=== PATIENT | male | born 1955 | race Caucasian/White ===

== ENCOUNTER 2017-11-19 12:30 | Outpatient (RCR) | payer OTHER, SELFPAY ==
--- NOTE | 2017-09-18 11:03 | HP.PTEVAL ---
Patient's Visit Information ESTEPHANIA HERNADNEZ is a 62 year old M referred to Physical Therapy by Miah Fernandez with a diagnosis of Neck pain. Date of Evaluation: 09/18/17 Physical Therapist: Александр Fernandes PT, - Visit Plan Frequency: 2-3x /Week Duration: 4-6 Weeks Plan: Postural Edu, C/S isometrics, scap stab ex's, Ube, and HEP - Subjective Subjective: Pt reports he has had neck pain for the past 35 years. Pt reports he was knocked out while playing walleyball, and notes that he has had pain ever since. Pt reports his neck cracks with all ROM, and pt notes he has had several appts to help with his pain. Pt notes he has been working out at [employer] for the past several months, but that is helping with his neck pain. Pt reports his L UE will occasionally go numb in his hand if he is talks on the phone for very long. 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 Occasional sleep diff secondary to pain. - Pain neck pain Pain Intensity (Out of 10): 3 Pain Intensity Range: 6 - Objective Posture: Pt sits with mild increase is thorasic kyphosis and decreased C/S lordosis. Neuro: B UE sensation is WNL to light touch. B bicepital reflex= 2/3. MMT: B UE 5/5 throughout. ROM: Pt is moderately limited with L rot, R sb, and retraction. repeated movements: RPIS 3x10 had NE. RRIS had NE - Goals Goal 1:: Pt will verbally and physically display proper posture to aid with decreasing pain Goal Time Frame: 4-6 Weeks Goal 2:: Decrease C/S pain x 50% to aid with sleep Goal Time Frame: 4-6 Weeks Goal 3:: Restore full C/S ROM to aid with proper posture Goal Time Frame: 4-6 Weeks Goal 4:: I with HEP Goal Time Frame: 4-6 Weeks - Rehabilitation Potential Physical Therapy Diagnosis: Pt has neck pain, limited C/S ;ROM, and poor posture secondary to degenerative changes in the C/S Rehabilitation Potential: Good - Anticipated Interventions Patient/Client Instruction: Educate patient on: Condition, Plan of Care For the Purpose of:: To improve self management Therapeutic Exercise to Include: Strength training, Body mechanics, Postural training, Scapular Strength/Stabilization For the Purpose of:: To decrease pain, To increase ROM, To improve muscle performance and motor function Thank you for the opportunity to evaluate your patient. For Medicare and Medicare HMO plans, please review the plan of care and approve it. It will need to be FAXED BACK to us at [phone] for Medicare purposes. Please let me know if there are questions or concerns regarding this plan of care. Physician Signature: Date:
--- NOTE | 2018-01-15 13:54 | HP.PT.NRP ---
HP - Discharge Summary (1) - Patient Information ESTEPHANIA HERNANDEZ was seen in my office for initial evaluation on 09/18/17. The following Plan of Care was established for this patient: Initial Frequency: 2-3x /Week Initial Duration: 4-6 Weeks - Anticipated Interventions Patient/Client Instruction: Educate patient on: Condition, Plan of Care For the Purpose of:: To improve self management Therapeutic Exercise to Include: Strength training, Body mechanics, Postural training, Scapular Strength/Stabilization For the Purpose of:: To decrease pain, To increase ROM, To improve muscle performance and motor function This patient was last seen in our office . Pertinent comments regarding their Physical therapy will appear below: Pt was last treated for his cervical pain on the date of 11/19/17. Pt had to stop PT secondary to needing tooth surgery. We planned on continuing after that time, but pt has not returned. Pt is therefore discontinued at this time. At this point I will be discontinuing this patient from physical therapy. I would be happy to see this patient again in the future if found appropriate by the physician. Thank you! Александр Fernandes, PT,
== END 2017-11-19 19:00 | disposition home or self-care (01) ==
LOC: PT 12:30
PROVIDERS: Family Provider Family Medicine; PCP Family Medicine; Visit Provider Family Medicine
DX: M54.2 Cervicalgia (principal)
CPT/HCPCS: 97110; 97140; 97161; 97530

== ENCOUNTER 2018-03-01 19:33 | Emergency (ER) | payer OTHER, SELFPAY ==
[2018-03-01 19:34] VITALS: BP 145/94; PULSE 67; RESP 15; TEMP 36.9; O2SAT 97; BMI 24.3
--- NOTE | 2018-03-01 21:05 | RAD_ITS ---
STUDY: X-RAY CHEST REASON FOR EXAM: Male, 62 years old. Cough and shortness of breath. TECHNIQUE: 2 views COMPARISON: Prior chest radiograph of July 17, 2017 FINDINGS: The lungs are clear and expanded. Small eventration of the posterior medial left diaphragm. 17 x 7 mm new nodular opacity in the axillary portion of the left upper lobe since the prior exam July 17, 2017. Normal size heart. Normal mediastinum and michelle. Normal visualized pulmonary arteries. Normal visualized aortic arch and descending thoracic aorta. Mild degenerative changes of the thoracic spine. Normal visualized ribs, clavicles, and shoulders. There is no demonstrated abnormality of the visualized soft tissue structures of the upper abdomen. RAD/Chest PA and Lateral IMPRESSION: No acute cardiopulmonary findings or changes. Negative for new consolidation, focal atelectasis, cardiomegaly or pleural effusion. New 17 x 7 mm nodular opacity in the axillary portion of the left upper lobe since the prior exam of July 17, 2017. CT recommended. Electronically Signed: Perla Hunter MD at 21:39 EDT , Service support ,
--- NOTE | 2018-03-01 21:49 | CT_ITS ---
STUDY: CT CHEST WITHOUT CONTRAST REASON FOR EXAM: Male, 62 years old. Evaluation of new pulmonary nodule. RADIATION DOSAGE (If Supplied By Facility): CTDIvol = ( 9.80 ) mGy, DLP = ( 391.68 ) mGycm TECHNIQUE: Transaxial imaging was performed without the administration of intravenous contrast material. Multiplanar coronal and sagittal images were reformatted. Individualized dose optimization techniques were used for this CT. COMPARISON: Prior chest radiograph March 01, 2018 and July 17, 2017 FINDINGS: Negative for pulmonary nodule. Minimal micronodular infiltrate in the anterior right lower lobe with associated thickening of the small regional bronchi. Small posterior medial fatty herniation of the left diaphragm. Negative for pleural effusion. Normal heart and pericardium. Coronary calcifications. Normal mediastinum. Normal hilar regions. Normal unenhanced pulmonary arteries. Normal aorta arch and descending thoracic aorta. There are multi-level degenerative changes of the thoracic spine. There is no demonstrated abnormality of the visualized upper abdomen. CT/Chest without Contrast IMPRESSION: There is no pulmonary nodule. Therefore, the density on the chest radiograph was an overlying artifact. Minimal micronodular infiltrate in the anterior segment of the right lower lobe with associated thickening of the small regional bronchi. Small posterior medial fatty herniation of the left diaphragm. Coronary calcifications. No acute pulmonary findings. Negative for infiltrates, consolidation Electronically Signed: Perla Hunter MD at 22:46 EDT , Service support ,
[2018-03-01 21:52] VITALS: BP 178/85; PULSE 96; RESP 14; O2SAT 96
[2018-03-01 22:22] LABS: Absolute Lymphocyte Count 2.73 X10^3/ul (0.83-4.51); Absolute Neutrophil Count 10.1 X10^3/uL (2.0-7.7); Basophil# 0.03 X10^3/uL; Basophil% 0.2 % (0-1); Eosinophils% 0.7 % (0-5); Hemoglobin 14.9 g/dl (13.0-16.5); Lymphocyte # 2.73 X10^3/ul (4.0); Lymphocyte % 19.1 % (19-41); Mean Corp Hgb Conc 33.9 g/gl (32-36); Mean Corpuscular Hgb 30.9 pg (27.0-32.0); Mean Corpuscular Volume 91.3 fL (80-94); Mean Platelet Vol. 10.5 fl (6.2-12.0); Monocyte# 1.28 X10^3/uL; Neutrophil # 10.09 X10^3/uL (2.7-7.7); Neutrophil % 70.6 % (47-70); Platelet Count 228 K/mm3 (150-450); RBC Distribution Width CV 12.8 % (11.6-14.6); RBC Distribution Width SD 42.8 fl (35.1-43.9); Red Blood Count 4.82 M/mm3 (4.6-6.2); White Blood Count 14.3 K/mm3 (4.4-11.0)
[2018-03-01 22:23] LABS: POSITIVE COUNT NO; POSITIVE DIFFERENTIAL NO; POSITIVE MORPHOLOGY NO
[2018-03-01 22:38] LABS: Anion Gap 9 (5-15); BUN 12 mg/dL (7-18); BUN/Creat Ratio 11.2 RATIO (10-20); Calcium,Total 9.1 mg/dL (8.5-10.1); Chloride 105 mmol/L (98-107); Creatinine, Serum 1.07 mg/dL (0.70-1.30); EST Glomerular Filtration Rate 74 mL/min (>60); Est Glom Filt Rate - Afr Amer 90 mL/min (>60); Estimated Creatinine Clearance 66.07 ml/min; Glucose 86 mg/dL (74-106); Potassium 3.8 mmol/L (3.5-5.1); Sodium Level 141 mmol/L (136-145)
[2018-03-01 23:15] VITALS: BP 102/43; PULSE 106; RESP 15; O2SAT 94
--- NOTE | 2018-03-01 23:22 | ED.DCSUM_ITS ---
- ER Visit Summary Date of Service: 03/01/18 Chief Complaint: Cough History of Present Illness: The patient is a 62 M who presents for cough. This is been present for 7 weeks. He initially had a cough productive of sputum although this is improving and it is more dry. He initially saw his primary care physician was diagnosed with bronchitis and advised on supportive treatment. He then went to the urgent care about 11 or 12 days ago due to lack of improvement of symptoms. He was placed on steroids and antibiotic and inhaler but states that he really had no improvement. He has also developed some more upper respiratory symptoms such as congestion and drainage. Physical Examination: Afebrile vitals are unremarkable Moist mucous membranes Heart regular rate and rhythm Lungs are clear I do not appreciate rales rhonchi or wheezing Abdomen soft Alert Test Results: Chest x-ray shows a 17 x 7 millimeter nodular opacity in the left upper lobe. CBC BMP notable for white blood cell count of 14.3. CT of the chest shows no nodule and findings seen on x-ray were thought to be related artifact. There were no acute findings on CT chest. Emergency Department Course and Treatment: Initially just obtained chest x-ray to rule out pneumonia. This showed a possible nodular opacity however when CT of the chest was obtained this was not seen and it was attributed to artifact. He was instructed on supportive care. Given chronic cough for 7 weeks he was advised of the possible need for outpatient workup including possible pulmonology referral if his symptoms do not improve. He was advised to follow- up with his primary care physician discharged home. Treatment Plan: [] Disposition: Discharge Impression: Chronic cough This note was generated with [employer] dictation software. It may contain incorrect words, spelling, and punctuation that were not noted in review of the chart prior to signing ED Disposition - Plan for ED Patient: Chief Complaint: Shortness of Breath Referrals: Miah Fernandez MD [Primary Care Provider] -
--- NOTE | 2018-03-01 23:22 | ED.DEP ---
ED Disposition - Plan for ED Patient: Chief Complaint: Shortness of Breath Instructions: ED Cough Chronic Cause Unkn Referrals: Miah Fernandez MD [Primary Care Provider] -
--- NOTE | 2018-03-01 23:33 | ED.RN ---
IV DC'ED, CATHETER INTACT, SMALL GAUZE DRESSING PLACED. DISCHARGE INSTRUCTIONS GIVEN TO AND REVIEWED WITH PATIENT, PATIENT DENIES QUESTIONS OR CONCERNS AND VOICES UNDERSTANDING OF DISCHARGE INSTRUCTIONS. PT AMBULATES OUT OF ROOM WITHOUT DIFFICULTY.
== END 2018-03-01 23:34 | disposition home or self-care (01) ==
PROVIDERS: Emergency Provider Emergency Medicine; Family Provider Family Medicine; PCP Family Medicine
DX: R05 Cough (principal); R06.00 Dyspnea, unspecified; R09.81 Nasal congestion; J34.89 Other specified disorders of nose and nasal sinuses; I10 Essential (primary) hypertension; Z85.820 Personal history of malignant melanoma of skin; Z86.69 Personal history of other diseases of the nervous system and sense organs; Z79.82 Long term (current) use of aspirin; Z79.899 Other long term (current) drug therapy
CPT/HCPCS: 71046; 71250; 80048; 85025; 99283; A4216

== ENCOUNTER → 2018-07-26 09:36 | Outpatient (CLI) | payer OTHER, SELFPAY ==
[2018-07-26 12:29] LABS: Vitamin D,25 Hydroxy 14.8 ng/mL (29.95-100.01)
[2018-07-26 12:53] LABS: Anion Gap 7 (5-15); BUN 17 mg/dL (7-18); BUN/Creat Ratio 15.5 RATIO (10-20); Chloride 105 mmol/L (98-107); Cholesterol 201 mg/dL (200); EST Glomerular Filtration Rate 72 mL/min (>60); Est Glom Filt Rate - Afr Amer 87 mL/min (>60); Glucose 87 mg/dL (74-106); High Density Lipoprotein 60 mg/dL; PSA,Total - Annual Screen 2.32 ng/mL (0.00-4.00); Potassium 4.1 mmol/L (3.5-5.1); Sodium Level 140 mmol/L (136-145); Thyroid Stim Hormone (TSH) 2.51 uIU/mL (0.358-3.74); Triglycerides 87 mg/dL; Very Low Density Lipoprotein 17 mg/dL (5-40)
== END ==
PROVIDERS: Family Provider Family Medicine; PCP Family Medicine; Referring Provider Family Medicine; Visit Provider Family Medicine
DX: Z00.00 Encounter for general adult medical examination without abnormal findings (principal)
CPT/HCPCS: 36415; 80048; 80061; 82306; 84153; 84443; G0103

== ENCOUNTER → 2018-09-09 09:00 | Outpatient (CLI) | payer OTHER, SELFPAY ==
--- NOTE | 2018-09-09 | BON_PTH ---
PATIENT: ESTEPHANIA HERNANDEZ LOC: [facility] U#:[id number] AGE/SX: 70/M ROOM: RE09/09/[address]: Dr. Chapin Levi DDS : 1955 BED: DIS: SPEC #: [id number] RECD: 09/09/18 14:37 STATUS: ROSETTA SEAN #: [id number] YAZMIN: 09/09/18 00:[address]: Chapin Levi DEPT: SURGICAL PATHOLOGY RECD BY: Adolfo Gupta ENTERED: 09/09/18 14:38 SP TYPE: Bone OTHR DR: Dr. Jose Christianson MD Tissues: Mandible, NOS Procedures: Decalcification bone/plaque Surgery Specimen Level IV HEADER OPERATION: Bone biopsy PRE-OP DIAGNOSIS: Non healing lesion, mandible POST-OP DIAGNOSIS: Lesion removed TISSUE SUBMITTED: Possible odontogenic lesion possible granuloma MICROSCOPIC DIAGNOSIS Mandible lesion, 19th area, biopsy: Consistent with dentigerous (follicular) cyst. AM:sp 09/10/18 COMMENT Case has been reviewed in consultation with Dr. Diaz who concurs with the above diagnosis. IDC:GREGORIO MICROSCOPIC DESCRIPTION The cyst lining consists of non-thickened, non-keratinizing, flattened squamous mucosa of 2-3 layers. Fibrinoid material containing cholesterol-like crystal is also present in the biopsy, adjacent to the benign mucosal tissue. GROSS DESCRIPTION Received is one container labeled with the patient name and designated [facility] area. The specimen consists of two pieces of pino pink mucosal tissue that in aggregate measure 1.5 x 1.5 x 0.5 cm. The specimen is totally submitted in one cassette. / GREGORIO:uri 09/09/18 TC: 5 CPT: 10533
== END ==
PROVIDERS: Family Provider Family Medicine; PCP Family Medicine; Referring Provider Dentist Oral and Maxillofacial Surgery; Visit Provider Dentist Oral and Maxillofacial Surgery
DX: L98.9 Disorder of the skin and subcutaneous tissue, unspecified (principal)
CPT/HCPCS: 88305; 88311

== ENCOUNTER 2018-09-24 21:42 | Emergency (ER) | payer OTHER, SELFPAY ==
[2018-09-24 21:43] VITALS: BP 165/86; PULSE 106; RESP 14; TEMP 36.7; O2SAT 97; BMI 26.6
[2018-09-24 21:50] VITALS: RESP 16
--- NOTE | 2018-09-24 22:15 | US_ITS ---
STUDY: VENOUS DOPPLER ULTRASOUND - LEFT LOWER EXTREMITY REASON FOR EXAM: Male, 63 years old. Left lateral knee pain for 5 hours today. TECHNIQUE: Ultrasound evaluation of the deep vein system to include shen-scale imaging and compression was performed. Shen-scale imaging and Doppler sonographic evaluation, including duplex spectral analysis and qualitative color flow sonography, was performed. COMPARISON: None. FINDINGS: Common Femoral Vein: Normal compression, spontaneity and augmentation. Normal color Doppler. Common Femoral Vein/Greater Saphenous Junction: Normal compression. Femoral Proximal: Normal compression. Femoral Middle: Normal compression, spontaneity and augmentation. Normal color Doppler. Femoral Distal: Normal compression. Popliteal Vein: Normal compression, spontaneity and augmentation. Normal color Doppler. Posterior Tibial Vein: Normal compression. Peroneal Vein: Normal compression. There is no demonstrated deep venous thrombosis. US/Venous Duplex Imag/Limited/Uni IMPRESSION: No sonographic evidence for deep venous thrombosis of the left common femoral, superficial femoral or popliteal veins. Electronically Signed: Gisele Franco MD at 23:07 EST , Service support ,
--- NOTE | 2018-09-24 22:23 | ED.VISSUMM ---
- ER Visit Summary Date of Service: 09/24/18 Chief Complaint: Atraumatic left posterior knee pain History of Present Illness: The patient is a 63 M past medical history of hypertension and prior skin cancer. Patient recently had jaw surgery for benign tumor. States today he noted pain behind his left knee. Worse with movement. Denies any falls or trauma. No swelling. No chest pain or shortness of breath. No prior history of any DVTs or PEs. No knee swelling or redness. No fever. Physical Examination: Well-appearing male. Vital signs are stable and afebrile. H EENT exam unremarkable. Neck nontender. Lungs clear to auscultation bilaterally. Heart regular rhythm no murmur. Abdomen soft nontender. Patient moving all 4 extremities. Neurovascular intact. His left foot DP pulses normal. Dorsi plantar flexion intact. Normal motor strength. Normal sensation. Full range of motion to his left hip, left knee and left ankle. No swelling or tenderness to any of the joints in his left leg. The popliteal fossa is currently nontender and nonswollen. Calf is nontender without edema. Currently clinically there is no signs of a DVT. Neurologic exam is unremarkable. Test Results: Venous study of the left lower extremity reveals no acute abnormality. No DVT. No signs of a Norman's cyst according to the heavy line technician. Emergency Department Course and Treatment: Repeat exam at 2250 patient doing well. He and I discussed differential diagnosis. He will follow-up with his doctor if not improving. Treatment Plan: Motrin for pain. Follow-up with not improving. Disposition: Discharge Impression: Acute left posterior knee muscle skeletal pain This note was generated with [employer] dictation software. It may contain incorrect words, spelling, and punctuation that were not noted in review of the chart prior to signing ED Disposition - Plan for ED Patient: Chief Complaint: Lower Extremity Injury Referrals: Jose Christianson MD [Primary Care Provider] -
--- NOTE | 2018-09-24 22:26 | ED.DCSUM_ITS ---
- ER Visit Summary Date of Service: 09/24/18 Chief Complaint: Atraumatic left posterior knee pain History of Present Illness: The patient is a 63 M past medical history of hypertension and prior skin cancer. Patient recently had jaw surgery for benign tumor. States today he noted pain behind his left knee. Worse with movement. Denies any falls or trauma. No swelling. No chest pain or shortness of breath. No prior history of any DVTs or PEs. No knee swelling or redness. No fever. Physical Examination: Well-appearing male. Vital signs are stable and afebrile. H EENT exam unremarkable. Neck nontender. Lungs clear to auscultation bilaterally. Heart regular rhythm no murmur. Abdomen soft nontender. Patient moving all 4 extremities. Neurovascular intact. His left foot DP pulses normal. Dorsi plantar flexion intact. Normal motor strength. Normal sensation. Full range of motion to his left hip, left knee and left ankle. No swelling or tenderness to any of the joints in his left leg. The popliteal fossa is currently nontender and nonswollen. Calf is nontender without edema. Currently clinically there is no signs of a DVT. Neurologic exam is unremarkable. Test Results: Venous study of the left lower extremity reveals no acute a bnormality. No DVT. No signs of a Norman's cyst according to the domestic technician. Emergency Department Course and Treatment: Repeat exam at 2250 patient doing we ll. He and I discussed differential diagnosis. He will follow-up with his doctor if not improving. Treatment Plan: Motrin for pain. Follow-up with not improving. Disposition: Discharge Impression: Acute left posterior knee muscle skeletal pain This note was generated with [employer] dictation software. It may contain incorrect words, spelling, and punctuation that were not noted in review of the chart prior to signing ED Disposition - Plan for ED Patient: Chief Complaint: Lower Extremity Injury Referrals: Jose Christianson MD [Primary Care Provider] -
--- NOTE | 2018-09-24 22:57 | ED.DEP ---
ED Disposition - Plan for ED Patient: Disposition: Home or Assisted Living Chief Complaint: Lower Extremity Injury Instructions: ED Knee Pain UKO Referrals: Jose Christianson MD [Primary Care Provider] - 10-14 Days if not better Additional Instructions: Motrin for pain and inflammation. Follow-up your primary care physician if not improving. The ultrasound showed no signs of a blood clot. If this is not improving follow-up with your doctor this could be secondary to an internal derangement in your knee.
[2018-09-24 23:03] VITALS: BP 154/93; PULSE 95; RESP 16; O2SAT 98
--- OUTSIDE RECORDS SUMMARY | 2018-11-20 10:37 | XMS RPT_ITS ---
:1955 Author Organization OH[facility] Care Team Providers Name Role Phone LIANA FRANCIS ([place]) Referring Unavailable Jose Christianson Attending Unavailable Jose Christianson Referring Unavailable Jose Christianson Primary Care Unavailable Jose Christianson Primary Care Unavailable Ambrocio Farooq Attending Unavailable Miah Fernandez Attending Unavailable Miah Fernandez Primary Care Unavailable Miah Fernandez Primary Care Unavailable Ed Juan Attending Unavailable Meghan, Jose Attending Unavailable Meghan, Jose Referring Unavailable Meghan, Jose Primary Care Unavailable Chapin Levi Attending Unavailable Gurmeet, Chapin Referring Unavailable Meghan, Jose Primary Care Unavailable Christianson, Jose Primary Care Unavailable Baljit Pfeiffer Attending Unavailable PROBLEMS PROBLEMS DATE TYPE CONDITION / CODE ATTENDING STATUS SOURCE 07/26/2018 Unknown Z00.00 - Jose Christianson Active Jie Encounter for [facility] medical Repository examination without abnormal findings / Z00.00(ICD-10) 02/20/2018 Active Cough / NA Active [facility] R05(ICD-10) Main [place] Repository 01/17/2018 Unknown M54.2 - Miah Fernandez Active Jie Cervicalgia / [facility] M54.2(ICD-10) Hospital Repository PROCEDURES PROCEDURES No Procedure Records FoundRESULTS RESULTS BASIC METABOLIC Collected: 10/10/2018 Status: F Source: JIE PROFILE (BMP) 2:17 PM [facility] REPOSITORY TYPE CODE TESTS RESULT OUT OF RANGE REFERENCE UNITS LAB L501.0100 74-106 mg/dL Normal GLU 87 Result Comment: Please note revised GLUCOSE reference range effective 2017. LAB L501.1000 7-18 mg/dL Normal BUN 11 LAB L501.1100 0.70-1.30 mg/dL Normal CREAT,SERUM 1.20 Result Comment: The validity of the calculated GFR AND GFRAA in patients over 70 years has not been determined. Clinical correlation is essential. LAB L501.1110 >60 mL/min Normal EST GFR 65 Result Comment: Non- GFR Calc LAB L501.1115 >60 mL/min Normal EST GFR - AA 78 Result Comment: GFR Calc LAB L501.1300 10-20 RATIO Low BUN/CRE 9.2 LAB L501.2200 8.5-10.1 mg/dL Normal CA 9.5 LAB L501.5300 136-145 mmol/L Normal NA 141 LAB L501.5600 3.5-5.1 mmol/L Normal K 4.5 LAB L501.5900 98-107 mmol/L Normal CL 104 LAB L501.6100 21.0-32.0 mmol/L Normal CO2 30.0 LAB L501.6200 5-15 Normal GAP 7 Performed By: #### L500.2500 #### [facility] [address] [place], [address] VITAMIN D,25 HYDROXY Collected: 10/10/2018 Status: F Source: JIE 2:17 PM [facility] REPOSITORY TYPE CODE TESTS RESULT OUT OF REFERENCE UNITS RANGE LAB L506.1000 29.95-100.01 ng/mL Low Vitamin D 29.4 25-OH Result Comment: Vitamin D 25(OH) Status Range Deficiency <20 ng/mL (50nmol/L) Insuffciency 20 - 30 ng/mL (50 - 75 nmol/L) Sufficiency 30 - 100 ng/mL (75 - 250 nmol/L) Toxicity >100 ng/mL (>250 nmol/L) Performed By: #### L506.1000 #### [facility] [address] [place], [address] EMERGENCY DEPARTMENT Observed: 09/24/2018 Status: F Source: JIE SUMMARY 11:04 PM [facility] REPOSITORY [facility] Medical Records Department [address] [facility] [place] [address] Emergency Department Summary 09/24/18 2223 MR#: [id number] Acct: [id number] Name: ESTEPHANIA HERNANDEZ Rep #: [id number] : 1955 63 From: Baljit Pfeiffer MD PCP: Jose Christianson MD Status: DEP ER - ER Visit Summary Date of Service: 09/24/18 Chief Complaint: Atraumatic left posterior knee pain History of Present Illness: The patient is a 63 M past medical history of hypertension and prior skin cancer. Patient recently had jaw surgery for benign tumor. States today he noted pain behind his left knee. Worse with movement. Denies any falls or trauma. No swelling. No chest pain or shortness of breath. No prior history of any DVTs or PEs. No knee swelling or redness. No fever. Physical Examination: Well-appearing male. Vital signs are stable and afebrile. H EENT exam unremarkable. Neck nontender. Lungs clear to auscultation bilaterally. Heart regular rhythm no murmur. Abdomen soft nontender. Patient moving all 4 extremities. Neurovascular intact. His left foot DP pulses normal. Dorsi plantar flexion intact. Normal motor strength. Normal sensation. Full range of motion to his left hip, left knee and left ankle. No swelling or tenderness to any of the joints in his left leg. The popliteal fossa is currently nontender and nonswollen. Calf is nontender without edema. Currently clinically there is no signs of a DVT. Neurologic exam is unremarkable. Test Results: Venous study of the left lower extremity reveals no acute abnormality. No DVT. No signs of a Norman's cyst according to the optical engineering technician. Emergency Department Course and Treatment: Repeat exam at 2250 patient doing well. He and I discussed differential diagnosis. He will follow-up with his doctor if not improving. Treatment Plan: Motrin for pain. Follow-up with not improving. Disposition: Discharge Impression: Acute left posterior knee muscle skeletal pain This note was generated with [employer] dictation software. It may contain incorrect words, spelling, and punctuation that were not noted in review of the chart prior to signing ED Disposition - Plan for ED Patient: Chief Complaint: Lower Extremity Injury Referrals: Jose Christianson MD [Primary Care Provider] - What to do if you have Problems For any increased pain, shortness of breath, bleeding, nausea or vomiting, chest pain, or any unexpected problems, contact your Primary Care Provider. Call [facility] ([phone]) or report to the closest Emergency Room. Call 911 if necessary. 09/24/18 0429 <Electronically signed by Baljit Pfeiffer MD> Date Baljit Pfeiffer MD Cosigner Signature (If Indicated): Date CC: Jose Christianson MD DISCHARGE INSTRUCTION Observed: 09/24/2018 Status: F Source: IJE 11:04 PM [facility] REPOSITORY [facility] Medical Records Department [address] [place] [address] Discharge Instruction 09/24/182256 MR#: [id number] Acct: [id number] Name: ESTEPHANIA HERNANDEZ Rep #: [id number] : 1955 63 From: Baljit Pfeiffer MD PCP: Jose Christianson MD Status: [facility] ER ED Disposition - Plan for ED Patient: Disposition: Home or Assisted Living Chief Complaint: Lower Extremity Injury Instructions: ED Knee Pain UKO Referrals: Jose Christianson MD [Primary Care Provider] - 10-14 Days if not better Additional Instructions: Motrin for pain and inflammation. Follow-up your primary care physician if not improving. The ultrasound showed no signs of a blood clot. If this is not improving follow-up with your doctor this could be secondary to an internal derangement in your knee. What to do if you have Problems For any increased pain, shortness of breath, bleeding, nausea or vomiting, chest pain, or any unexpected problems, contact your Primary Care Provider. Call [facility] ([phone]) or report to the closest Emergency Room. Call 911 if necessary. 09/24/18 2304 <Electronically signed by Baljit Pfeiffer MD> Date Baljit Pfeiffer MD Cosigner Signature (If Indicated): Date CC: Jose Christianson MD VENOUS DUPLEX Observed: 09/24/2018 Status: F Source: [place] IMAG/LIMITED/UNI 10:15 PM [facility] REPOSITORY [facility] Imaging Services [address] [place] [address] Venous Duplex Imag/Limited/Uni MR#: [id number] Acct: [id number] Name: ESTEPHANIA HERNANDEZ Rep #: [id number] : 1955 M 63 From: Gisele Franco MD PCP: Jose Christianson MD Status: [facility] ER Study: Venous Duplex Imag/Limited/Uni Date of Exam: 09/24/18 Exam# [id number] Ordering Dr: Baljit Pfeiffer MD STUDY: VENOUS DOPPLER ULTRASOUND - LEFT LOWER EXTREMITY REASON FOR EXAM: Male, 63 years old. Left lateral knee pain for 5 hours today. TECHNIQUE: Ultrasound evaluation of the deep vein system to include shen-scale imaging and compression was performed. Shen-scale imaging and Doppler sonographic evaluation, including duplex spectral analysis and qualitative color flow sonography, was performed. COMPARISON: None. FINDINGS: Common Femoral Vein: Normal compression, spontaneity and augmentation. Normal color Doppler. Common Femoral Vein/Greater Saphenous Junction: Normal compression. Femoral Proximal: Normal compression. Femoral Middle: Normal compression, spontaneity and augmentation. Normal color Doppler. Femoral Distal: Normal compression. Popliteal Vein: Normal compression, spontaneity and augmentation. Normal color Doppler. Posterior Tibial Vein: Normal compression. Peroneal Vein: Normal compression. There is no demonstrated deep venous thrombosis. US/Venous Duplex Imag/Limited/Uni IMPRESSION: No sonographic evidence for deep venous thrombosis of the left common femoral, superficial femoral or popliteal veins. Electronically Signed: Gisele Franco MD at 23:07 EST , Service support , CC: Baljit Pfeiffer MD; Jose Christianson MD Manufacturing Job Titles: Signed BONE (FX/NONFRACTURE) Observed: 09/09/2018 Status: F Source: JIE 12:00 AM [facility] REPOSITORY Patient: ESTEPHANIA HERNANDEZ : 1955 (63/M) Acct Num: [id number] Phys: Luisito Levi DDSrajesh Unit Num: [id number] Loc: LABSPEC Specimen: [id number] Received: 09/09/181436 Spec Type: Bone TISSUES 1 TISSUES: Mandible, NOS COMMENT Case has been reviewed in consultation with Dr. Diaz who concurs with the above diagnosis. IDC:SJ GROSS DESCRIPTION Received is one container labeled with the patient name and designated mandible 19th area. The specimen consists of two pieces of pino pink mucosal tissue that in aggregate measure 1.5 x 1.5 x 0.5 cm. The specimen is totally submitted in one cassette. / SJ:uri 09/09/18 TC: 5 CPT: 86206 HEADER OPERATION: Bone biopsy PRE-OP DIAGNOSIS: Non healing lesion, mandible POST-OP DIAGNOSIS: Lesion removed TISSUE SUBMITTED: Possible odontogenic lesion possible granuloma MICROSCOPIC DESCRIPTION The cyst lining consists of non-thickened, non-keratinizing, flattened squamous mucosa of 2-3 layers. Fibrinoid material containing cholesterol- like crystal is also present in the biopsy, adjacent to the benign mucosal tissue. MICROSCOPIC DIAGNOSIS Mandible lesion, 19th area, biopsy: Consistent with dentigerous (follicular) cyst. AM:sp 09/10/18 Signed Carlos [facility] 09/13/18 <signature on file> Performed By: #### PBON #### [facility] [address] [place], [place], [address] VITAMIN D,25 HYDROXY Collected: 07/26/2018 Status: F Source: JIE 9:41 AM [facility] REPOSITORY TYPE CODE TESTS RESULT OUT OF REFERENCE UNITS RANGE LAB L506.1000 29.95-100.01 ng/mL Low Vitamin D 14.8 25-OH Result Comment: Vitamin D 25(OH) Status Range Deficiency <20 ng/mL (50nmol/L) Insuffciency 20 - 30 ng/mL (50 - 75 nmol/L) Sufficiency 30 - 100 ng/mL (75 - 250 nmol/L) Toxicity >100 ng/mL (>250 nmol/L) Performed By: #### L506.1000 #### [facility] [address] [place], [address] BASIC METABOLIC Collected: 07/26/2018 Status: F Source: JIE PROFILE (BMP) 9:41 AM [facility] REPOSITORY TYPE CODE TESTS RESULT OUT OF RANGE REFERENCE UNITS LAB L501.0100 74-106 mg/dL Normal GLU 87 Result Comment: Please note revised GLUCOSE reference range effective 2017. LAB L501.1000 7-18 mg/dL Normal BUN 17 LAB L501.1100 0.70-1.30 mg/dL Normal CREAT,SERUM 1.10 Result Comment: The validity of the calculated GFR AND GFRAA in patients over 70 years has not been determined. Clinical correlation is essential. LAB L501.1110 >60 mL/min Normal EST GFR 72 Result Comment: Non- GFR Calc LAB L501.1115 >60 mL/min Normal EST GFR - AA 87 Result Comment: GFR Calc LAB L501.1300 10-20 RATIO Normal BUN/CRE 15.5 LAB L501.2200 8.5-10.1 mg/dL CA Normal 9.0 LAB L501.5300 136-145 mmol/L NA Normal 140 LAB L501.5600 3.5-5.1 mmol/L K Normal 4.1 LAB L501.5900 98-107 mmol/L CL Normal 105 LAB L501.6100 21.0-32.0 mmol/L Normal CO2 28.0 LAB L501.6200 5-15 Normal GAP 7 Performed By: #### L500.2500, L500.4100, L501.9520, L501.9910 #### [facility] [address] [place], [address] LIPID PROFILE Collected: 07/26/2018 Status: F Source: [place] 9:41 AM [facility] REPOSITORY TYPE CODE TESTS RESULT OUT OF RANGE REFERENCE UNITS LAB L501.4900 200 mg/dL High CHOL 201 Result Comment: <200 mg/dL Desirable 200-240 mg/dL Borderline >240 mg/dL High Risk LAB L501.5000 mg/dL Normal TRIG 87 Result Comment: The drugs N-Acetylcysteine and Metamizole may falsely depress this assay. Serum Triglycerides Reference Interval Normal <150 mg/dL Borderline high 150 - 199 mg/dL High 200 - 499 mg/dL Very High > or = 500 mg/dL LAB L501.6400 mg/dL Normal HDL 60 Result Comment: The drugs N-Acetylcysteine and Metamizole may falsely depress this assay. Reference Range HDL <40 mg/dL Low HDL Cholesterol HDL >or= 60 mg/dL High HDL Cholesterol LAB L501.6500 0-130 mg/dL Normal LDL 124 LAB L501.6600 5-40 mg/dL Normal VLDL 17 Performed By: #### L500.2500, L500.4100, L501.9520, L501.9910 #### [facility] [address] [facility] [place], [address] THYROID STIM HORMONE Collected: 07/26/2018 Status: F Source: JIE (TSH) 9:41 AM [facility] REPOSITORY TYPE CODE TESTS RESULT OUT OF RANGE REFERENCE UNITS LAB L501.9520 0.358-3.74 uIU/mL Normal TSH 2.51 Performed By: #### L500.2500, L500.4100, L501.9520, L501.9910 #### [facility] [address] [facility] [place], [address] PSA,TOTAL - ANNUAL Collected: 07/26/2018 Status: F Source: JIE SCREEN 9:41 AM [facility] REPOSITORY TYPE CODE TESTS RESULT OUT OF RANGE REFERENCE UNITS LAB L501.9910 0.00-4.00 ng/mL Normal PSA,TOT 2.32 SCREEN Result Comment: This test was performed using the TPSA assay method for the [employer] chemistry system. Values obtained with different assay methods cannot be used interchangably. When changing PSA assays in the course of monitoring a patient, additional sequential testing should be carried out to confirm baseline values. Performed By: #### L500.2500, L500.4100, L501.9520, L501.9910 #### [facility] [address] [facility] [place], [address] EMERGENCY DEPARTMENT Observed: 03/01/2018 Status: F Source: JIE SUMMARY 11:22 PM [facility] REPOSITORY [facility] Medical Records Department [address] [place] [address] Emergency Department Summary 03/01/18 2320 MR#: [id number] Acct: [id number] Name: ESTEPHANIA HERNANDEZ Rep #: [id number] : 1955 62 From: Ed Juan MD PCP: Miah Fernandez MD Status: REG ER - ER Visit Summary Date of Service: 03/01/18 Chief Complaint: Cough History of Present Illness: The patient is a 62 M who presents for cough. This is been present for 7 weeks. He initially had a cough productive of sputum although this is improving and it is more dry. He initially saw his primary care physician was diagnosed with bronchitis and advised on supportive treatment. He then went to the urgent care about 11 or 12 days ago due to lack of improvement of symptoms. He was placed on steroids and antibiotic and inhaler but states that he really had no improvement. He has also developed some more upper respiratory symptoms such as congestion and drainage. Physical Examination: Afebrile vitals are unremarkable Moist mucous membranes Heart regular rate and rhythm Lungs are clear I do not appreciate rales rhonchi or wheezing Abdomen soft Alert Test Results: Chest x-ray shows a 17 x 7 millimeter nodular opacity in the left upper lobe. CBC BMP notable for white blood cell count of 14.3. CT of the chest shows no nodule and findings seen on x-ray were thought to be related artifact. There were no acute findings on CT chest. Emergency Department Course and Treatment: Initially just obtained chest x-ray to rule out pneumonia. This showed a possible nodular opacity however when CT of the chest was obtained this was not seen and it was attributed to artifact. He was instructed on supportive care. Given chronic cough for 7 weeks he was advised of the possible need for outpatient workup including possible pulmonology referral if his symptoms do not improve. He was advised to follow-up with his primary care physician discharged home. Treatment Plan: [] Disposition: Discharge Impression: Chronic cough This note was generated with [employer] dictation software. It may contain incorrect words, spelling, and punctuation that were not noted in review of the chart prior to signing ED Disposition - Plan for ED Patient: Chief Complaint: Shortness of Breath Referrals: Miah Fernandez MD [Primary Care Provider] - What to do if you have Problems For any increased pain, shortness of breath, bleeding, nausea or vomiting, chest pain, or any unexpected problems, contact your Primary Care Provider. Call [facility] ([phone]) or report to the closest Emergency Room. Call 911 if necessary. 03/01/18 0530 <Electronically signed by Ed Juan MD> Date Ed Juan MD Cosigner Signature (If Indicated): Date CC: Miah Fernandez MD DISCHARGE INSTRUCTION Observed: 03/01/2018 Status: F Source: JIE 11:22 PM [facility] REPOSITORY [facility] Medical Records Department [address] [place] [address] Discharge Instruction 03/01/182321 MR#: [id number] Acct: [id number] Name: ESTEPHANIA HERNANDEZ Rep #: [id number] : 1955 62 From: Ed Juan MD PCP: Miah Fernandez MD Status: REG ER ED Disposition - Plan for ED Patient: Chief Complaint: Shortness of Breath Instructions: ED Cough Chronic Cause Unkn Referrals: Miah Fernandez MD [Primary Care Provider] - What to do if you have Problems For any increased pain, shortness of breath, bleeding, nausea or vomiting, chest pain, or any unexpected problems, contact your Primary Care Provider. Call [facility] ([phone]) or report to the closest Emergency Room. Call 911 if necessary. 03/01/182321 <Electronically signed by Ed Juan MD> Date Ed Manzanaresigner Signature (If Indicated): Date CC: Miah Fernandez MD CBC W/DIFF, AUTOMATED Collected: 03/01/2018 Status: F Source: JIE 10:05 PM [facility] REPOSITORY TYPE CODE TESTS RESULT OUT OF RANGE REFERENCE UNITS LAB L100.1000 4.4-11.0 K/mm3 High WBC 14.3 LAB L100.1200 4.6-6.2 M/mm3 Normal RBC 4.82 LAB L100.1300 13.0-16.5 g/dl Normal HGB 14.9 LAB L100.1400 40-54 % Normal HCT 44.0 LAB L100.1500 80-94 fL Normal MCV 91.3 LAB L100.1600 27.0-32.0 pg Normal MCH 30.9 LAB L100.1700 32-36 g/gl Normal MCHC 33.9 LAB L100.1810 11.6-14.6 % Normal RDW CV 12.8 LAB L100.1820 35.1-43.9 fl Normal RDW SD 42.8 LAB L100.1900 150-450 K/mm3 Normal PLT 228 LAB L100.2000 6.2-12.0 fl Normal MPV 10.5 LAB L100.2100 47-70 % High NEUT% 70.6 LAB L100.2200 19-41 % Normal LY% 19.1 LAB L100.2300 0-10 % Normal MONO% 9.0 LAB L100.2400 0-5 % Normal EO% 0.7 LAB L100.2500 0-1 % Normal BASO% 0.2 LAB L100.2550 0.0-0.9 % Normal IM GRAN % 0.400 Result Comment: IG% - Immature Granulocytes (promyelocytes, myelocytes and metamyelocytes) > 1% indicates that a LEFT SHIFT is Present. LAB L100.2620 2.0-7.7 X10 3/uL High Absolute Neut 10.1 LAB L100.2720 0.83-4.51 X10 3/ul Normal Absolute Lymph 2.73 Performed By: #### L100.0100 #### [facility] [address] [place] [address]. [place], [place], [address] BASIC METABOLIC Collected: 03/01/2018 Status: F Source: [place] PROFILE (BMP) 10:05 PM [facility] REPOSITORY TYPE CODE TESTS RESULT OUT OF RANGE REFERENCE UNITS LAB L501.0100 74-106 mg/dL Normal GLU 86 Result Comment: Please note revised GLUCOSE reference range effective 2017. LAB L501.1000 7-18 mg/dL Normal BUN 12 LAB L501.1100 0.70-1.30 mg/dL Normal CREAT,SERUM 1.07 Result Comment: The validity of the calculated GFR AND GFRAA in patients over 70 years has not been determined. Clinical correlation is essential. LAB L501.1110 >60 mL/min Normal EST GFR 74 Result Comment: Non- GFR Calc LAB L501.1115 >60 mL/min Normal EST GFR - AA 90 Result Comment: GFR Calc LAB L501.1255 ml/min Normal Estimated CRCL 66.07 LAB L501.1300 10-20 RATIO Normal BUN/CRE 11.2 LAB L501.2200 8.5-10 mg/dL Normal .1 CA 9.1 LAB L501.5300 136-14 mmol/L Normal 5 NA 141 LAB L501.5600 3.5-5. mmol/L Normal 1 K 3.8 LAB L501.5900 98-107 mmol/L Normal CL 105 LAB L501.6100 21.0-3 mmol/L Normal 2.0 CO2 27.0 LAB L501.6200 5-15 Normal GAP 9 Performed By: #### L500.2500 #### [facility] [address] [place], [address] CHEST WITHOUT Observed: 03/01/2018 Status: F Source: [place] CONTRAST 9:50 PM [facility] REPOSITORY [facility] Imaging Services [address] [place] [address] Chest without Contrast MR#: [id number] Acct: [id number] Name: ESTEPHANIA HERNANDEZ Rep #: [id number] : 1955 62 From: Perla Hunter MD PCP: Miah Fernandez MD Status: REG ER Study: Chest without Contrast Date of Exam: 03/01/18 Exam# [id number] Ordering Dr: Ed Juan MD STUDY: CT CHEST WITHOUT CONTRAST REASON FOR EXAM: Male, 62 years old. Evaluation of new pulmonary nodule. RADIATION DOSAGE (If Supplied By Facility): CTDIvol = ( 9.80 ) mGy, DLP = ( 391.68 ) mGycm TECHNIQUE: Transaxial imaging was performed without the administration of intravenous contrast material. Multiplanar coronal and sagittal images were reformatted. Individualized dose optimization techniques were used for this CT. COMPARISON: Prior chest radiograph March 01, 2018 and July 17, 2017 FINDINGS: Negative for pulmonary nodule. Minimal micronodular infiltrate in the anterior right lower lobe with associated thickening of the small regional bronchi. Small posterior medial fatty herniation of the left diaphragm. Negative for pleural effusion. Normal heart and pericardium. Coronary calcifications. Normal mediastinum. Normal hilar regions. Normal unenhanced pulmonary arteries. Normal aorta arch and descending thoracic aorta. There are multi-level degenerative changes of the thoracic spine. There is no demonstrated abnormality of the visualized upper abdomen. CT/Chest without Contrast IMPRESSION: There is no pulmonary nodule. Therefore, the density on the chest radiograph was an overlying artifact. Minimal micronodular infiltrate in the anterior segment of the right lower lobe with associated thickening of the small regional bronchi. Small posterior medial fatty herniation of the left diaphragm. Coronary calcifications. No acute pulmonary findings. Negative for infiltrates, consolidation Electronically Signed: Perla Hunter MD at 22:46 EDT , Service support , CC: Ed Juan MD; Miah Fernandez MD Manufacturing Job Titles: Signed CHEST PA AND LATERAL Observed: 03/01/2018 Status: F Source: [place] 9:05 PM [facility] REPOSITORY [facility] Imaging Services [address] [place] [address] Chest PA and Lateral MR#: [id number] Acct: [id number] Name: ESTEPHANIA HERNANDEZ Rep #: [id number] : 1955 62 From: Perla Hunter MD PCP: Miah Fernandez MD Status: REG ER Study: Chest PA and Lateral Date of Exam: 03/01/18 Exam# [id number] Ordering Dr: Ed Juan MD STUDY: X-RAY CHEST REASON FOR EXAM: Male, 62 years old. Cough and shortness of breath. TECHNIQUE: 2 views COMPARISON: Prior chest radiograph of July 17, 2017 FINDINGS: The lungs are clear and expanded. Small eventration of the posterior medial left diaphragm. 17 x 7 mm new nodular opacity in the axillary portion of the left upper lobe since the prior exam July 17, 2017. Normal size heart. Normal mediastinum and michelle. Normal visualized pulmonary arteries. Normal visualized aortic arch and descending thoracic aorta. Mild degenerative changes of the thoracic spine. Normal visualized ribs, clavicles, and shoulders. There is no demonstrated abnormality of the visualized soft tissue structures of the upper abdomen. RAD/Chest PA and Lateral IMPRESSION: No acute cardiopulmonary findings or changes. Negative for new consolidation, focal atelectasis, cardiomegaly or pleural effusion. New 17 x 7 mm nodular opacity in the axillary portion of the left upper lobe since the prior exam of July 17, 2017. CT recommended. Electronically Signed: Perla Hunter MD at 21:39 EDT , Service support , CC: Ed Juan MD; Miah Fernandez MD Manufacturing Job Titles: Signed XR CHEST 2V FRONTAL/LAT Observed: 02/20/2018 Status: F Source: H[place]RIC[place] 12:23 PM [facility] REPOSITORY * * *Final Report* * * DATE OF EXAM: Feb 20 2018 12:23PM WOX [id number] - XR CHEST 2V FRONTAL/LAT / PROCEDURE REASON: Cough * * * * Physician Interpretation * * * * EXAMINATION: CHEST RADIOGRAPH (2 VIEW FRONTAL and LATERAL) Clinical History: Cough MQ: XC2_5 Comparison: RESULT: Lines, tubes, and devices: None. Lungs and pleura: No consolidation. No lung mass. No pleural effusion. Cardiomediastinal silhouette: Normal cardiomediastinal silhouette. Other: . IMPRESSION: No acute radiographic abnormality. Manufacturing Job Titles: CYNTHIA Transcribe Date/Time: Feb 20 2018 12:27P Dictated by : ESTEPHANIA BRYANT MD This examination was interpreted and the report reviewed and electronically signed by: ESTEPHANIA BRYANT MD on Feb 20 2018 12:30PM EST [id number] [id number] Observed: 02/20/2018 Status: COMPLETED Source: HURRICANE 12:19 PM [facility] [place] REPOSITORY HNO ID: [id number] Author: Dolly Stewart (Rt) Marcos Handy Service: (none) Author Type: Casino Floor Person Type: Progress Notes Filed: 02/20/2018 12:23 PM Note Text: Radiology Service Progress Note PATIENT NAME: Estephania Hernandez DATE OF SERVICE: February 20, 2018 TIME: 12:19 PM PATIENT IDENTITY VERIFICATION COMPLETED USING TWO (2) METHODS: Patient confirmed name verbally and Date of . PATIENT GENDER DATA: Male PATIENT RELEVANT IMPLANT DATA REVIEWED: Not Applicable RADIOLOGY DEPARTMENT: General X-ray: Exam(s) Completed: Chest X-Ray PERIPHERAL IV DATA: Not applicable SIGNED BY: RT Jeronimo February 20, 2018 12:19 PM PROGRESS Observed: 02/20/2018 Status: COMPLETED Source: H[place]RICANE 12:10 PM [facility] REPOSITORY HNO ID: [id number] Author: Liana Francis (Pa) Service: (none) Author Type: Physician Carpenter [employer]ing Type: Progress Notes Filed: 02/20/2018 2:23 PM Note Text: Subjective HPI Pt presents with cough x 5 weeks. He had seen his pcp 4 weeks ago and completed doxycycline for 10 days at that time. He has been taking mucinex. No fevers checked at home. No nvd. A coworker has been ill as well. Review of Systems Constitutional: Negative for chills and fever. Eyes: Negative. Respiratory: Positive for cough. Negative for shortness of breath and wheezing. Cardiovascular: Negative. Skin: Negative. All other systems reviewed and are negative. No past medical history on file. Current Outpatient Prescriptions: amLODIPine (NORVASC) 5 mg tablet Disp: Rfl: methylPREDNISolone (MEDROL, RUTHY,) 4 mg Dose-Pack As Instructed per package Disp: 1 Package Rfl: 0 azithromycin (ZITHROMAX Z-RUTHY) 250 mg tablet Take 2 tablets by mouth day one, then 1 tablet daily until gone. Disp: 1 Package Rfl: 0 No current facility-administered medications for this visit. No past surgical history on file. No family history on file. Social History Substance Use Topics - Smoking status: Never Smoker - Smokeless tobacco: Never Used - Alcohol use Not on file BP 120/70 Pulse 80 Temp 36.5 ?C (97.7 ?F) (Tympanic) Resp 16 Wt 71.2 kg (157 lb) SpO2 95% Objective Physical Exam Constitutional: He is oriented to person, place, and time and well-developed, well-nourished, and in no distress. HENT: Head: Normocephalic and atraumatic. Right Ear: Tympanic membrane, external ear and ear canal normal. Left Ear: Tympanic membrane, external ear and ear canal normal. Nose: Nose normal. Mouth/Throat: Uvula is midline, oropharynx is clear and moist and mucous membranes are normal. Cardiovascular: Normal rate, regular rhythm and normal heart sounds. Pulmonary/Chest: Effort normal and breath sounds normal. Harsh cough noted Neurological: He is alert and oriented to person, place, and time. Skin: Skin is warm and dry. No rash noted. Psychiatric: Affect and judgment normal. Nursing note and vitals reviewed. ASSESSMENT/PLAN: 1. Cough - ICD9: 786.2, ICD10: R05 (primary diagnosis) Pt chest xray here read by radiology as negative. I do feel he has bronchitis. I will treat with zpak, prednisone, and inhaler and tessalon as needed. Discussed with patient concerning symptoms to go to the emergency department or follow up here. Pt agreeable with this plan. - XR CHEST 2V FRONTAL/LAT 2. Acute bronchitis, unspecified organism - ICD9: 466.0, ICD10: J20.9 YELENA WarnerOV Observed: 02/20/2018 Status: COMPLETED Source: HURRICANE 12:00 PM [facility] REPOSITORY Office Visit ([facility]STR) ESTEPHANIA HERNANDEZ ([id number]) 1955 M Date Time Provider Department 02/20/18 12:00 PM LIANA FRANCIS (AMANDO) [facility] During your visit today, we recorded the following information about you: Temperature Pulse Respiration Blood pressure 97.7 degrees 80/minute 16/minute 120/70 Weight 71.2 kg Liana Francis PA-C 02/20/2018 2:23 PM Signed Subjective HPI Pt presents with cough x 5 weeks. He had seen his pcp 4 weeks ago and completed doxycycline for 10 days at that time. He has been taking mucinex. No fevers checked at home. No nvd. A coworker has been ill as well. Review of Systems Constitutional: Negative for chills and fever. Eyes: Negative. Respiratory: Positive for cough. Negative for shortness of breath and wheezing. Cardiovascular: Negative. Skin: Negative. All other systems reviewed and are negative. No past medical history on file. Current Outpatient Prescriptions: amLODIPine (NORVASC) 5 mg tablet Disp: Rfl: methylPREDNISolone (MEDROL, RUTHY,) 4 mg Dose-Pack As Instructed per package Disp: 1 Package Rfl: 0 azithromycin (ZITHROMAX Z-RUTHY) 250 mg tablet Take 2 tablets by mouth day one, then 1 tablet daily until gone. Disp: 1 Package Rfl: 0 No current facility-administered medications for this visit. No past surgical history on file. No family history on file. Social History Substance Use Topics - Smoking status: Never Smoker - Smokeless tobacco: Never Used - Alcohol use Not on file BP 120/70 Pulse 80 Temp 36.5 ?C (97.7 ?F) (Tympanic) Resp 16 Wt 71.2 kg (157 lb) SpO2 95% Objective Physical Exam Constitutional: He is oriented to person, place, and time and well-developed, well-nourished, and in no distress. HENT: Head: Normocephalic and atraumatic. Right Ear: Tympanic membrane, external ear and ear canal normal. Left Ear: Tympanic membrane, external ear and ear canal normal. Nose: Nose normal. Mouth/Throat: Uvula is midline, oropharynx is clear and moist and mucous membranes are normal. Cardiovascular: Normal rate, regular rhythm and normal heart sounds. Pulmonary/Chest: Effort normal and breath sounds normal. Harsh cough noted Neurological: He is alert and oriented to person, place, and time. Skin: Skin is warm and dry. No rash noted. Psychiatric: Affect and judgment normal. Nursing note and vitals reviewed. ASSESSMENT/PLAN: 1. Cough - ICD9: 786.2, ICD10: R05 (primary diagnosis) Pt chest xray here read by radiology as negative. I do feel he has bronchitis. I will treat with zpak, prednisone, and inhaler and tessalon as needed. Discussed with patient concerning symptoms to go to the emergency department or follow up here. Pt agreeable with this plan. - XR CHEST 2V FRONTAL/LAT 2. Acute bronchitis, unspecified organism - ICD9: 466.0, ICD10: J20.9 Liana Francis PA-C Referring Provider: SELF [200] Allergies As of Date: 02/20/2018 Noted Allergy Reaction SEASONAL ALLERGIES 10/28/2014 14 - Other: See Comments Comments: Sneezing, eyes Date Reviewed: 02/20/2018 Reviewed by: Good Gonzales Ma - Fully Assessed Reason for Visit: Chest Congestion [236] Cmt: cough dx with bronchitis 5 weeks ago given medication has not felt good since, symptoms x 1 month Primary Visit Diagnosis:Cough [R05] Other Visit Diagnosis:Acute bronchitis, unspecified organism [J20.9] Order(s):XR CHEST 2V FRONTAL/LAT [[id number]] Order #: [id number] FUTURE azithromycin (ZITHROMAX Z-RUTHY) 250 mg tabletTake 2 tablets day one, then, 1 tablet daily until gone.Disp: 1 PackageRfl: 0 predniSONE (DELTASONE) 20 mg tabletTake 1 tablet by mouth twice daily for 5 days.Disp: 10 tabletRfl: 0 albuterol HFA (PROAIR HFA) 90 mcg/actuation inhalerInhale 2 Puffs as instructed every 6 hours as needed.Disp: 1 InhalerRfl: 0 benzonatate (TESSALON PERLE) 100 mg capsuleTake 2 capsules by mouth three times daily as needed.Disp: 30 capsuleRfl: 0 Prescriptions as of 02/20/2018 Sig: AMLODIPINE 5 MG TABLET AZITHROMYCIN 250 MG TABLET Take 2 tablets day one, then,* PREDNISONE 20 MG TABLET Take 1 tablet by mouth twice * ALBUTEROL SULFATE HFA 90 MCG/* Inhale 2 Puffs as instructed * BENZONATATE 100 MG CAPSULE Take 2 capsules by mouth thre* METHYLPREDNISOLONE 4 MG TABLE* As Instructed per package AZITHROMYCIN 250 MG TABLET Take 2 tablets by mouth day o* Medication notes this encounter METHYLPREDNISOLONE 4 MG TABLETS IN A DOSE PACK >> Good Gonzales Ma 02/20/2018 11:57 AM >> ALCIRA ORTIZ GOOD SunFeb 20, 2018 11:57 AM done Problem List As Of Date: 02/20/2018 (None) Prescriptions ordered this encounter Disp Refills Start End AZITHROMYCIN 250 MG TABLET 1 Pa* 0 02/20/2018 02/25/2018 Sig: Take 2 tablets day one, then, 1 tablet daily until gone. PREDNISONE 20 MG TABLET 10 t* 0 02/20/2018 02/25/2018 Route: ORAL Sig: Take 1 tablet by mouth twice daily for 5 days. ALBUTEROL SULFATE HFA 90 MCG/ACTUATI* 1 In* 0 02/20/2018 Route: INHALATION Sig: Inhale 2 Puffs as instructed every 6 hours as needed. BENZONATATE 100 MG CAPSULE 30 c* 0 02/20/2018 Route: ORAL Sig: Take 2 capsules by mouth three times daily as needed. Encounter Status:Closed by LIANA FRANCIS PA-C on 02/20/18 ALLERGIES ALLERGIES DATE TYPE / CODE NAME / CODE REACTION SEVERITY SOURCE 10/15/2018 Drug No Known Unknown [facility] Allergy/416 Allergies/F33638 [facility] 287603(SNOM 0388(RXNORM) Repository ED CT) 10/28/2014 Environ/420 SEASONAL OTHER: SEE C [facility] [id number](SN ALLERGIES [facility] [place] [facility]) Repository ENCOUNTERS ENCOUNTERS ADMIT/DISCHARGE ACCOUNT ADMITTING ENCOUNTER LOCATION SOURCE NUMBER CLASS 10/15/2018/10/15/20 [id number] Emergency [address] ing:ED Repository 10/10/2018 [id number] Ambulatory [facility] ing:MTLAB Repository 09/24/2018/09/24/20 [id number] Emergency [address] ing:ED Repository 09/09/2018 [id number] Ambulatory [facility] ing:LABSPEC Repository 07/26/2018 [id number] Ambulatory [facility] ing:MTLAB Repository 03/01/2018/03/01/20 [id number] Emergency [address] ing:ED Repository 02/20/2018/02/21/20 [id number] Ambulatory [address] Repository 02/20/2018/02/22/20 [id number] Ambulatory [address] Repository 11/19/2017/11/19/19 [id number] Ambulatory [facility] [address] [place] [address] ing:PT Repository PAYERS PAYERS ENCOUNTER GUARANTOR PAYER SUBSCRIBER SOURCE 10/15/2018 ESTEPHANIA A Primary ESTEPHANIA A Jie [id number] Insurance:AULTCAREPol THOMASDOB: [facility] [place] icy Number: [id number] [id number] Repository [address]Zwp: ([phone]) Date:7493-17-16Dm [phone] () [address] [address]CE: 10/15/2018 Secondary NOT GIVENUNK Jie Insurance:SELF PAY [facility] Number: Effective Repository Date:2018-10-15 10/10/2018 ESTEPHANIA A Primary ESTEPHANIA A Jie [id number] Insurance:AULTCAREPol THOMASDOB: [facility] [employer] icy Number: [id number] City, [place] [id number] Repository [address]Ptb: ([phone]) Date:5276-53-71Jc [phone] () [address], [place] [address]CA: 10/10/2018 Secondary NOT GIVENUNK Ideal Insurance:SELF PAY [facility] Number: Effective Repository Date:2018-10-10 09/24/2018 ESTEPHANIA A Primary ESTEPHANIA A Ideal [id number] Insurance:AULTCAREPol THOMASDOB: [facility] [place] icy Number: [id number] City, [place] [id number] Repository [address]Tvq: ([phone]) Date:3749-44-85Md [phone] () [address], [place] [address]UP: 09/24/2018 Secondary NOT GIVENUNK Ideal Insurance:SELF PAY [facility] Number: Effective Repository Date:2018-09-24 09/09/2018 ESTEPHANIA A Primary ESTEPHANIA A Ideal [id number] Insurance:AULTCAREPol THOMASDOB: [facility] [address] [employer] icy Number: [id number] City, [place] [id number] Repository [address]Azz: (330) Date:1772-77-62Am [phone] (HP) [address], [place] [address]MP: 09/09/2018 Secondary NOT GIVENUNK Jie Insurance:SELF PAY [facility]: Effective Repository Date:2018-09-09 07/26/2018 Estephania A Primary Estephania A Jie [id number] Insurance:AULTCAREPol ThomasDOB: [facility] [place] icy Number: [id number] [place], [place] [id number] Repository [address]Kko: (330) Date:6759-06-98Be [phone] (HP) [address], [place] [address]DY: 07/26/2018 Secondary NOT GIVENUNK Jie Insurance:SELF PAY [facility] Number: Effective Repository Date:2018-07-26 03/01/2018 Estephania A Primary Estephania A Ideal [id number] Insurance:AULTCAREPol ThomasDOB: [facility] [place] icy Number: [id number] [place], [place] [id number] Repository [address]Gbf: (330) Date:2605-21-22Qd [phone] (HP) [address] [address]RO: 03/01/2018 Secondary NOT GIVENUNK Ideal Insurance:SELF PAY [facility] Number: Effective Repository Date:2018-03-01 11/19/2017 Estephania A Primary Estephania A Ideal [id number] Insurance:AULTCAREPol ThomasDOB: [facility] [place] icy Number: [id number] [place], [place] [id number] Repository [address]Tuf: (330) Date:3767-16-58Ho [phone] (HP) [address], [place] [address]GD: 11/19/2017 Secondary NOT GIVENUNK Jie Insurance:SELF PAY [facility] Number: Effective Repository Date:2017-09-17
== END 2018-09-24 23:04 | disposition home or self-care (01) ==
PROVIDERS: Emergency Provider Emergency Medicine; Family Provider Family Medicine; PCP Family Medicine
DX: M25.562 Pain in left knee (principal); I10 Essential (primary) hypertension; Z85.820 Personal history of malignant melanoma of skin; Z79.899 Other long term (current) drug therapy
CPT/HCPCS: 93971; 99282

== ENCOUNTER → 2018-10-10 14:07 | Outpatient (CLI) | payer OTHER, SELFPAY ==
[2018-09-24 21:43] VITALS: BMI 26.6
[2018-10-10 15:43] LABS: Anion Gap 7 (5-15); BUN 11 mg/dL (7-18); BUN/Creat Ratio 9.2 RATIO (10-20); Calcium,Total 9.5 mg/dL (8.5-10.1); Chloride 104 mmol/L (98-107); EST Glomerular Filtration Rate 65 mL/min (>60); Est Glom Filt Rate - Afr Amer 78 mL/min (>60); Glucose 87 mg/dL (74-106); Potassium 4.5 mmol/L (3.5-5.1); Sodium Level 141 mmol/L (136-145)
[2018-10-10 15:54] LABS: Vitamin D,25 Hydroxy 29.4 ng/mL (29.95-100.01)
--- OUTSIDE RECORDS SUMMARY | 2018-11-26 11:07 | XMS RPT_ITS ---
:1955 Author Organization OHIP Care Team Providers Name Role Phone LIANA FRANCIS (AMANDO) Referring Unavailable Jose Christianson Attending Unavailable Jose Christianson Referring Unavailable Jose Christianson Primary Care Unavailable Jose Christianson Primary Care Unavailable Ambrocio Farooq Attending Unavailable Miah Fernandez Primary Care Unavailable Ed Juan Attending Unavailable Christianson, Jose Attending Unavailable Christianson, Jose Referring Unavailable Christianson, Jose Primary Care Unavailable Chapin Levi Attending Unavailable Chapin Levi Referring Unavailable Christianson, Jose Primary Care Unavailable Baljit Perez Attending Unavailable Meghan, Jose Primary Care Unavailable Baljit Perez Referring Unavailable Christianson, Jose Primary Care Unavailable Baljit Pfeiffer Attending Unavailable PROBLEMS PROBLEMS DATE TYPE CONDITION / CODE ATTENDING STATUS SOURCE 07/26/2018 Unknown Z00.00 - Meghan Jose Active [place] Encounter for [facility] medical Repository examination without abnormal findings / Z00.00(ICD-10) 02/20/2018 Active Cough / NA Active [facility] R05(ICD-10) [facility] [place] Repository PROCEDURES PROCEDURES No Procedure Records FoundRESULTS RESULTS Observed: 11/06/2018 Status: F Source: [place] CULTURE, WOUND 1:40 PM [facility] REPOSITORY Comments: RIGHT BIG TOE Gram Stain Gram Stain 3+ Red Blood Cells 1+ White Blood Cells No organisms seen Wound Culture No growth aerobically. Performed By: #### M100.1400 #### [facility] [address] [place], [place], [id number] CRYSTALS, BODY FLUID Collected: 11/06/2018 Status: C Source: [place] 1:40 PM [facility] REPOSITORY TYPE CODE TESTS RESULT OUT OF RANGE REFERENCE UNITS LAB L200.4200 Normal MONOSODIUM URATE CRYSTALS/BF Result Comment: AMENDED REPORT 11/08/18 1554 CRYSTALS/BF previously reported as: See PATH REV LAB L200.4225 Normal OTHER SOURCE/BF LAB L200.6020 Normal PATH REV Reviewed Result Comment: Numerous monosodium urate crystals are noted. Bloody specimen. Bradley Diaz M.D. 11/11/18 AMENDED REPORT 11/11/18 1442 PATH REV previously reported as: Will follow Performed By: #### L200.4175 #### [facility] [address] [place], [place], [address] EMERGENCY DEPARTMENT Observed: 10/21/2018 Status: F Source: [place] SUMMARY 7:03 AM [facility] REPOSITORY [facility] Medical Records Department [address] [place] [address] Emergency Department Summary 10/15/18 0101 MR#: [id number] Acct: [id number] Name: ESTEPHANIA HERNANDEZ Rep #: [id number] : 1955 63 From: Ambrocio Farooq DO PCP: Jose Christianson MD Status: DEP ER - ER Visit Summary Date of Service: 10/15/18 Chief Complaint: Gout flare History of Present Illness: The patient is a 63 M who states a couple days ago he began to have a flare of gout. He states he has had this about 20 years. It began on the right great toe and he states the skin is very sensitive and seems to be worsening. He called his doctor's office and he states there is supposed to call in allopurinol and colchicine. Unfortunately he only got the allopurinol at the pharmacy. He is presenting because he was concerned perhaps he was having an infection rather than gout. In the past is usually used Aleve for treatment. He recently had blood work that showed a normal creatinine. Physical Examination: Afebrile vital signs are stable Gen: Well-nourished well-developed Head: Normocephalic atraumatic Eyes: Perrl EOMI ENT: TMs clear no rhinorrhea moist mucous membranes Neck: Supple no lymphadenopathy no JVD nontender CVS: Regular rate rhythm no murmurs normal S1-S2 Respiratory: No distress clear to auscultation bilaterally chest nontender Abdomen: Soft nontender nondistended normal bowel sounds no masses Back: Nontender Extremity: Right great toe shows swelling some mild erythema is tender to palpation with hypersensitivity Skin: Normal color no rash Neuro: alert orientated 3 CN II-XII intact normal strength sensation reflexes gait cerebellar Psych: Normal affect normal mood Emergency Department Course and Treatment: Patient will be started on Motrin as well as a few Zwingle tonight. We will also provide him with colchicine. Impression: 1. Acute gout right foot This note was generated with Mailcloud dictation software. It may contain incorrect words, spelling, and punctuation that were not noted in review of the chart prior to signing ED Disposition - Plan for ED Patient: Disposition: Home or Assisted Living Chief Complaint: Lower Extremity Injury Instructions: What Is Gout? Prescriptions: Ibuprofen [Motrin] 800 mg PO TID PRN PRN #20 tab PRN Reason: Pain Referrals: Jose Christianson MD [Primary Care Provider] - As Needed What to do if you have Problems For any increased pain, shortness of breath, bleeding, nausea or vomiting, chest pain, or any unexpected problems, contact your Primary Care Provider. Call [facility] ([phone]) or report to the closest Emergency Room. Call 911 if necessary. 10/21/18 0703 <Electronically signed by Ambrocio Farooq DO> Date Ambrocio Farooq DO Cosigner Signature (If Indicated): Date CC: Jose Christianson MD BASIC METABOLIC Collected: 10/10/2018 Status: F Source: [place] PROFILE ([facility]) 2:17 PM [facility] REPOSITORY TYPE CODE TESTS RESULT OUT OF [...] GAP 7 Performed By: #### L500.2500 #### [facility] [address] [place], [address] VITAMIN D,25 HYDROXY Collected: 10/10/2018 Status: F Source: [place] 2:17 PM [facility] REPOSITORY TYPE CODE TESTS RESULT OUT OF REFERENCE UNITS RANGE LAB L506.1000 29.95-100.01 ng/mL Low Vitamin D 29.4 25-OH Result Comment: Vitamin D 25(OH) Status Range Deficiency <20 ng/mL (50nmol/L) Insuffciency 20 - 30 ng/mL (50 - 75 nmol/L) Sufficiency 30 - 100 ng/mL (75 - 250 nmol/L) Toxicity >100 ng/mL (>250 nmol/L) Performed By: #### L506.1000 #### [facility] [address] [place], [address] EMERGENCY DEPARTMENT Observed: 09/24/2018 Status: F Source: [place] SUMMARY 11:04 PM [facility] REPOSITORY [facility] Medical Records Department [address] [place] [address] Emergency Department Summary 09/24/18 2223 MR#: [id number] Acct: [id number] Name: ESTEPHANIA HERNANDEZ Rep #: [id number] : 1955 63 From: Baljit Pfeiffer MD [...] of a Norman's cyst according to the hvac maintenance technician. Emergency Department Course and Treatment: Repeat exam at 2250 patient doing well. He and I discussed differential diagnosis. He will follow-up with his doctor if not improving. Treatment Plan: Motrin for pain. Follow-up with not improving. Disposition: Discharge Impression: Acute left posterior knee muscle skeletal pain This note was generated with Mailcloud dictation software. It may contain incorrect words, [...] your Primary Care Provider. Call [facility] ([phone]) or report to the closest Emergency Room. Call 911 if necessary. 09/24/18 8409 <Electronically signed by Baljit Pfeiffer MD> Date Baljit Pfeiffer MD Cosigner Signature (If Indicated): Date CC: Jose Christianson MD DISCHARGE INSTRUCTION Observed: 09/24/2018 Status: F Source: [place] 11:04 PM [facility] REPOSITORY [facility] Medical Records Department [address] [place] [address] Discharge Instruction 09/24/187 MR#: [id number] Acct: [id number] Name: ESTEPHANIA HERNANDEZ Rep #: [id number] : 1955 63 From: Baljit Pfeiffer MD PCP: Jose Christianson MD Status: [facility] ER ED Disposition - Plan for ED [...] problems, contact your Primary Care Provider. Call [facility] ([phone]) or report to the closest Emergency Room. Call 911 if necessary. 09/24/18 2304 <Electronically signed by Baljit Pfeiffer MD> Date Baljit Pfeiffer MD Cosigner Signature (If Indicated): Date CC: Jose Christianson MD VENOUS DUPLEX Observed: 09/24/2018 Status: F Source: [place] IMAG/LIMITED/UNI 10:15 PM [facility] REPOSITORY [facility] Imaging Services [address] [place] [address] Venous Duplex Imag/Limited/Uni MR#: [id number] Acct: [id number] Name: ESTEPHANIA HERNANDEZ Rep #: [id number] : 1955 M 63 From: Gisele Franco MD PCP: Jose Christianson MD Status: [facility] ER Study: Venous Duplex Imag/Limited/Uni Date of Exam: 09/24/18 Exam# [id number] Ordering Dr: Baljit Pfeiffer MD STUDY: VENOUS [...] CC: Baljit Pfeiffer MD; Jose Christianson MD Oil Tanker Captain: Signed BONE (FX/NONFRACTURE) Observed: 09/09/2018 Status: F Source: [place] 12:00 AM [facility] REPOSITORY Patient: ESTEPHANIA HERNANDEZ : 1955 (63/M) Acct Num: [id number] Phys: Gurmeet PADRONChapin Unit Num: [id number] Loc: LABSPEC Specimen: [id number] Received: 09/09/181436 Spec Type: Bone TISSUES 1 [...] cassette. / SJ:uri 09/09/18 TC: 5 CPT: 05578 HEADER OPERATION: Bone biopsy PRE-OP DIAGNOSIS: Non [...] area, biopsy: Consistent with dentigerous (follicular) cyst. AM:uri 09/10/18 Signed [facility] 09/13/18 <signature on file> Performed By: #### PBON #### [facility] [address] [place], [place], [address] VITAMIN D,25 HYDROXY Collected: 07/26/2018 Status: F Source: [place] 9:41 AM [facility] REPOSITORY TYPE CODE TESTS RESULT OUT OF REFERENCE UNITS RANGE LAB L506.1000 29.95-100.01 ng/mL Low Vitamin D 14.8 25-OH Result Comment: Vitamin D 25(OH) Status Range Deficiency <20 ng/mL (50nmol/L) Insuffciency 20 - 30 ng/mL (50 - 75 nmol/L) Sufficiency 30 - 100 ng/mL (75 - 250 nmol/L) Toxicity >100 ng/mL (>250 nmol/L) Performed By: #### L506.1000 #### [facility] [address] [place], [address] BASIC METABOLIC Collected: 07/26/2018 Status: F Source: [place] PROFILE (BMP) 9:41 AM [facility] REPOSITORY TYPE CODE TESTS RESULT OUT OF [...] By: #### L500.2500, L500.4100, L501.9520, L501.9910 #### [facility] [address] [place], [address] LIPID PROFILE Collected: 07/26/2018 Status: F Source: [place] 9:41 AM [facility] REPOSITORY TYPE CODE TESTS RESULT OUT OF [...] By: #### L500.2500, L500.4100, L501.9520, L501.9910 #### [facility] [address] [place], [address] THYROID STIM HORMONE Collected: 07/26/2018 Status: F Source: [place] (TSH) 9:41 AM [facility] REPOSITORY TYPE CODE TESTS RESULT OUT OF RANGE REFERENCE UNITS LAB L501.9520 0.358-3.74 uIU/mL Normal TSH 2.51 Performed By: #### L500.2500, L500.4100, L501.9520, L501.9910 #### [facility] [address] [place], [address] PSA,TOTAL - ANNUAL Collected: 07/26/2018 Status: F Source: [place] SCREEN 9:41 AM [facility] REPOSITORY TYPE CODE TESTS RESULT OUT OF RANGE REFERENCE UNITS LAB L501.9910 0.00-4.00 ng/mL Normal PSA,TOT 2.32 SCREEN Result Comment: This test was performed using the TPSA assay method for the [employer] chemistry system. Values obtained with different assay methods cannot be used interchangably. When changing PSA assays in the course of monitoring a patient, additional sequential testing should be carried out to confirm baseline values. Performed By: #### L500.2500, L500.4100, L501.9520, L501.9910 #### [facility] [address] [place], [address] EMERGENCY DEPARTMENT Observed: 03/01/2018 Status: F Source: [place] SUMMARY 11:22 PM [facility] REPOSITORY [facility] Medical Records Department [address] [facility] [place] [address] Emergency Department Summary 03/01/18 2320 MR#: [id number] Acct: [id number] Name: ESTEPHANIA HERNANDEZ Rep #: [id number] : 1955 62 From: Ed Juan MD [...] Chronic cough This note was generated with Mailcloud dictation software. It may contain incorrect words, [...] problems, contact your Primary Care Provider. Call [facility] ([phone]) or report to the closest Emergency Room. Call 911 if necessary. 03/01/18 3935 <Electronically signed by Ed Juan MD> Date Ed Juan MD Cosigner Signature (If Indicated): Date CC: Miah Fernandez MD DISCHARGE INSTRUCTION Observed: 03/01/2018 Status: F Source: [place] 11:22 PM [facility] REPOSITORY [facility] Medical Records Department [address] [place] [address] Discharge Instruction 03/01/182321 MR#: [id number] Acct: [id number] Name: ESTEPHANIA HERNANDEZ Rep #: [id number] : 1955 62 From: Ed Juan MD [...] your Primary Care Provider. Call [facility] ([phone]) or report to the closest Emergency Room. Call 911 if necessary. 03/01/182321 <Electronically signed by Ed Juan MD> Date Ed Juan MD Cosigner Signature (If Indicated): Date CC: Miah Fernandez MD CBC W/DIFF, AUTOMATED Collected: 03/01/2018 Status: F Source: [place] 10:05 PM [facility] REPOSITORY TYPE CODE TESTS RESULT OUT OF [...] Lymph 2.73 Performed By: #### L100.0100 #### [facility] [address] [place], [place], [address] BASIC METABOLIC Collected: 03/01/2018 Status: F Source: [place] PROFILE (BMP) 10:05 PM [facility] REPOSITORY TYPE CODE TESTS RESULT OUT OF [...] GAP 9 Performed By: #### L500.2500 #### [facility] [address] [place], [address] CHEST WITHOUT Observed: 03/01/2018 Status: F Source: [place] CONTRAST 9:50 PM [facility] REPOSITORY [facility] Imaging Services [address] [place] [address] Chest without Contrast MR#: [id number] Acct: [id number] Name: ESTEPHANIA HERNANDEZ Rep #: [id number] : 1955 M 62 From: Perla Hunter MD PCP: Miah Fernandez MD Status: REG ER Study: Chest without Contrast Date of Exam: 03/01/18 Exam# [id number] Ordering Dr: Ed Juan MD STUDY: CT [...] CC: Ed Juan MD; Miah Fernandez MD Oil Tanker Captain: Signed CHEST PA AND LATERAL Observed: 03/01/2018 Status: F Source: [place] 9:05 PM [facility] REPOSITORY [facility] Imaging Services [address] [place] [address] Chest PA and Lateral MR#: [id number] Acct: [id number] Name: ESTEPHANIA HERNANDEZ Rep #: [id number] : 1955 M 62 From: Perla Hunter MD PCP: Miah Fernandez MD Status: REG ER Study: Chest PA and Lateral Date of Exam: 03/01/18 Exam# [id number] Ordering Dr: Ed Juan MD STUDY: X-RAY [...] CC: Ed Juan MD; Miah Fernandez MD Oil Tanker Captain: Signed XR CHEST 2V FRONTAL/LAT Observed: 02/20/2018 Status: F Source: [place] 12:23 PM [facility] REPOSITORY * * *Final Report* * * [...] Other: . IMPRESSION: No acute radiographic abnormality. Oil Tanker Captain: CYNTHIA Transcribe Date/Time: Feb 20 2018 12:27P Dictated by : ESTEPHANIA BRYANT MD This examination was interpreted and the report reviewed and electronically signed by: ESTEPHANIA BRYANT MD on Feb 20 2018 12:30PM EST [id number] PROGRESS Observed: 02/20/2018 Status: COMPLETED Source: [place] 12:19 PM [facility] [place] REPOSITORY HNO ID: [id number] Author: Dolly Stewart (Rt) Marcos Handy Service: (none) Author Type: Lodge Sales Associate Type: Progress Notes Filed: 02/20/2018 12:23 PM [...] PM PROGRESS Observed: 02/20/2018 Status: COMPLETED Source: [place] 12:10 PM [facility] REPOSITORY HNO ID: [id number] Author: Liana Francis (Pa) Service: (none) Author Type: Physician Library Manager Type: Progress Notes Filed: 02/20/2018 2:23 PM [...] YELENA WarnerOV Observed: 02/20/2018 Status: COMPLETED Source: [place] 12:00 PM [facility] REPOSITORY Office Visit (WSTR) ESTEPHANIA HERNANDEZ ([id number]) 1955 M Date Time Provider Department 02/20/18 12:00 PM LIANA FRANCIS (AMANDO) WSTR During your visit today, we recorded the [...] unspecified organism [J20.9] Order(s):XR CHEST 2V FRONTAL/LAT [[id number]] Order #: [id number] FUTURE azithromycin (ZITHROMAX Z-RUTHY) 250 mg tabletTake [...] Gonzales Ma 02/20/2018 11:57 AM >> ALCIRA ORTIZGOOD SunFeb 20, 2018 11:57 AM done Problem [...] SEVERITY SOURCE 10/15/2018 Drug No Known Unknown [facility] Allergy/416 Allergies/T40161 [facility] 404189(SNOM 0388(RXNORM) Repository ED CT) 10/28/2014 Environ/420 SEASONAL OTHER: SEE C [facility] 803790(SNOM ALLERGIES [facility] ED CT) Repository ENCOUNTERS ENCOUNTERS ADMIT/DISCHARGE ACCOUNT ADMITTING ENCOUNTER LOCATION SOURCE NUMBER CLASS 11/06/2018 [id number] [facility] ing:LABSPEC Repository 10/15/2018/10/15/20 [id number] Emergency [address] ing:ED Repository 10/10/2018 [id number] Ambulatory [facility] ing:MTLAB Repository 09/24/2018/09/24/20 [id number] Emergency [address] ing:ED Repository 09/09/2018 [id number] Ambulatory [facility] ing:LABSPEC Repository 07/26/2018 [id number] Ambulatory [facility] ing:MTLAB Repository 03/01/2018/03/01/20 [id number] Emergency [address] ing:ED Repository 02/20/2018/02/21/20 [id number] Ambulatory [address] Repository 02/20/2018/02/22/20 [id number] Ambulatory [address] Repository PAYERS PAYERS ENCOUNTER GUARANTOR PAYER SUBSCRIBER SOURCE 11/06/2018 ESTEPHANIA A Primary ESTEPHANIA A [place] [id number] Insurance:AULTCAREPol THOMASDOB: [facility] icy Number: [id number] [id number] Repository [address]Wci: (330) Date:3227-95-62Ty [phone] () [place], [place] [address]RG: 11/06/2018 Secondary NOT GIVENUNK [place] Insurance:SELF PAY [facility] Number: Effective Repository Date:2018-11-06 10/15/2018 ESTEPHANIA A Primary ESTEPHANIA A [place] [id number] Insurance:AULTCAREPol [facility] Number: [id number], [place] [id number] Repository [address]Hdt: (330) Date:3938-20-27Ws [phone] () [address], [place] [address]RW: 10/15/2018 Secondary NOT GIVENUNK [place] Insurance:SELF PAY [facility] Number: Effective Repository Date:2018-10-15 10/10/2018 ESTEPHANIA A Primary ESTEPHANIA A [place] [id number] Insurance:AULTCAREPol THOMASDOB: [facility] icy Number: [id number], [place] [id number] Repository [address]Fzd: (330) Date:1850-74-44Wc [phone] () [address], [place] [address]QO: 10/10/2018 Secondary NOT GIVENUNK [place] Insurance:SELF PAY [facility] Number: Effective Repository Date:2018-10-10 09/24/2018 ESTEPHANIA A Primary ESTEPHANIA A [place] [id number] Insurance:AULTCAREPol PLAINFIELDDOB: [facility] icy Number: [id number], [place] [id number] Repository [address]Fxq: (330) Date:2657-77-75Ru [phone] (HP) [address], [place] [address]QV: 09/24/2018 Secondary NOT GIVENUNK [place] Insurance:SELF PAY [facility] Effective Repository Date:2018-09-24 09/09/2018 ESTEPHANIA A Primary ESTEPHANIA A [place] [id number] Insurance:AULTCAREPol THOMASDOB: [facility] icy Number: [id number], [place] [id number] Repository [address]Wth: (330) Date:3302-51-68Uv [phone] (HP) [address], [place] [address]ZK: 09/09/2018 Secondary NOT GIVENUNK [place] Insurance:SELF PAY [facility]: Effective Repository Date:2018-09-09 07/26/2018 Estephania A Primary Estephania A [place] [id number] Insurance:AULTCAREPol ThomasDOB: [facility] [place] icy Number: [id number] [id number] Repository [address]Ctt: (330) Date:6814-32-61Ex [phone] (HP) [address], [place] [address]WR: 07/26/2018 Secondary NOT GIVENUNK [place] Insurance:SELF PAY [facility] Number: Effective Repository Date:2018-07-26 03/01/2018 Estephania A Primary Estephania A [place] [id number] Insurance:AULTCAREPol ThomasDOB: [facility] [place] icy Number: [id number] [place], [place] [id number] Repository [address]Rsk: (330) Date:8389-56-99Jm [phone] (HP) [address], [place] [address]FL: 03/01/2018 Secondary NOT GIVENUNK [place] Insurance:SELF PAY [facility] Number: Effective Repository Date:2018-03-01
== END ==
PROVIDERS: Family Provider Family Medicine; PCP Family Medicine; Referring Provider Family Medicine; Visit Provider Family Medicine
DX: I10 Essential (primary) hypertension (principal); E55.9 Vitamin D deficiency, unspecified
CPT/HCPCS: 36415; 80048; 82306

== ENCOUNTER 2018-10-15 00:42 | Emergency (ER) | payer OTHER, SELFPAY ==
[2018-10-15 00:44] VITALS: BP 172/107; PULSE 110; RESP 16; TEMP 36.8; O2SAT 98; BMI 25.6
--- NOTE | 2018-10-15 01:02 | ED.DCSUM_ITS ---
- ER Visit Summary Date of Service: 10/15/18 Chief Complaint: Gout flare History of Present Illness: The patient is a 63 M who states a couple days ago he began to have a flare of gout. He states he has had this about 20 years. It began on the right great toe and he states the skin is very sensitive and seems to be worsening. He called his doctor's office and he states there is supposed to call in allopurinol and colchicine. Unfortunately he only got the allopurinol at the pharmacy. He is presenting because he was concerned perhaps he was having an infection rather than gout. In the past is usually used Aleve for treatment. He recently had blood work that showed a normal creatinine. Physical Examination: Afebrile vital signs are stable Gen: Well-nourished well-developed Head: Normocephalic atraumatic Eyes: Perrl EOMI ENT: TMs clear no rhinorrhea moist mucous membranes Neck: Supple no lymphadenopathy no JVD nontender CVS: Regular rate rhythm no murmurs normal S1-S2 Respiratory: No distress clear to auscultation bilaterally chest nontender Abdomen: Soft nontender nondistended normal bowel sounds no masses Back: Nontender Extremity: Right great toe shows swelling some mild erythema is tender to palpation with hypersensitivity Skin: Normal color no rash Neuro: alert orientated ?3 CN II-XII intact normal strength sensation reflexes gait cerebellar Psych: Normal affect normal mood Emergency Department Course and Treatment: Patient will be started on Motrin as well as a few [place] tonight. We will also provide him with colchicine. Impression: 1. Acute gout right foot This note was generated with [employer] dictation software. It may contain incorrect words, spelling, and punctuation that were not noted in review of the chart prior to signing ED Disposition - Plan for ED Patient: Disposition: Home or Assisted Living Chief Complaint: Lower Extremity Injury Instructions: What Is Gout? Prescriptions: Ibuprofen [Motrin] 800 mg PO TID PRN PRN #20 tab PRN Reason: Pain Referrals: Jose Christianson MD [Primary Care Provider] - As Needed
[2018-10-15] MEDS: HYDROcodone Bitartrate/Apap 5/325 Tablet PO (01:28)
[2018-10-15 01:31] VITALS: RESP 18
--- OUTSIDE RECORDS SUMMARY | 2019-01-16 10:41 | XMS RPT_ITS ---
:1955 Author Organization OHIP Care Team Providers Name Role Phone LIANA FRANCIS (AMANDO) Referring Unavailable Jose Christianson Attending Unavailable Jose Christianson Referring Unavailable Jose Christianson Primary Care Unavailable Jose Christianson Primary Care Unavailable Ambrocio Farooq Attending Unavailable Baljit Perez Attending Unavailable Meghan, Jose Primary Care Unavailable Baljit Perez Referring Unavailable Miah Fernandez Primary Care Unavailable Ed Juan Attending Unavailable Christianson, Jose Attending Unavailable Christianson, Jose Referring Unavailable Christianson, Jose Primary Care Unavailable Fioriben, Chapin Attending Unavailable Gurmeet, Chapin Referring Unavailable Christianson, Jose Primary Care Unavailable Christianson, Jose Primary Care Unavailable Baljit Pfeiffer Attending Unavailable PROBLEMS PROBLEMS DATE TYPE CONDITION / CODE ATTENDING STATUS SOURCE 07/26/2018 Unknown Z00.00 - Meghan Jose Active [place] Encounter for [facility] medical Repository examination without abnormal findings / Z00.00(ICD-10) 02/20/2018 Active Cough / NA Active [facility] R05(ICD-10) Main [place] Repository PROCEDURES PROCEDURES No Procedure Records FoundRESULTS RESULTS Observed: 11/06/2018 Status: F Source: [place] CULTURE, WOUND 1:40 PM [facility] REPOSITORY Comments: RIGHT BIG TOE Gram Stain Gram Stain 3+ Red Blood Cells 1+ White Blood Cells No organisms seen Wound Culture No growth aerobically. Performed By: #### M100.1400 #### [facility] [address] [place], [place], [id number] CRYSTALS, BODY FLUID Collected: 11/06/2018 Status: C Source: [place] 1:40 PM [facility] REPOSITORY TYPE CODE TESTS RESULT OUT OF [...] Will follow Performed By: #### L200.4175 #### [facility] [address] [place], [place], [address] EMERGENCY DEPARTMENT Observed: 10/21/2018 Status: F Source: [place] SUMMARY 7:03 AM [facility] REPOSITORY [facility] Medical Records Department [address] [place] [address] Emergency Department Summary 10/15/18 0101 MR#: [id number] Acct: [id number] Name: ESTEPHANIA HERNANDEZ Rep #: [id number] : 1955 63 From: Ambrocio Farooq DO [...] on Motrin as well as a few Remus tonight. We will also provide him with colchicine. Impression: 1. Acute gout right foot This note was generated with [employer] dictation software. It may contain incorrect words, [...] your Primary Care Provider. Call [facility] ([phone]) or report to the closest Emergency Room. Call 911 if necessary. 10/21/18 0703 <Electronically signed by Ambrocio Farooq DO> Date Ambrocio Farooq DO Cosigner Signature (If Indicated): Date CC: Jose Christianson MD BASIC METABOLIC Collected: 10/10/2018 Status: F Source: [place] PROFILE ([facility]) 2:17 PM [facility] REPOSITORY TYPE CODE TESTS RESULT OUT OF [...] GAP 7 Performed By: #### L500.2500 #### [facility] [address] [place], [address] VITAMIN D,25 HYDROXY Collected: 10/10/2018 Status: F Source: [place] 2:17 PM [facility] REPOSITORY TYPE CODE TESTS RESULT OUT OF REFERENCE UNITS RANGE LAB L506.1000 29.95-100.01 ng/mL Low Vitamin D 29.4 25-OH Result Comment: Vitamin D 25(OH) Status Range Deficiency <20 ng/mL (50nmol/L) Insuffciency 20 - 30 ng/mL (50 - 75 nmol/L) Sufficiency 30 - 100 ng/mL (75 - 250 nmol/L) Toxicity >100 ng/mL (>250 nmol/L) Performed By: #### L506.1000 #### [facility] [address] [place], [address] EMERGENCY DEPARTMENT Observed: 09/24/2018 Status: F Source: [place] SUMMARY 11:04 PM [facility] REPOSITORY [facility] Medical Records Department [address] [facility] [place] [address] Emergency Department Summary 09/24/18 2223 MR#: [id number] Acct: [id number] Name: ESTEPHANIA HERNANDEZ Rep #: [id number] : 1955 63 From: Baljit Pfeiffer MD [...] of a Norman's cyst according to the emergency medical technician basic. Emergency Department Course and Treatment: Repeat exam at 2250 patient doing well. He and I discussed differential diagnosis. He will follow-up with his doctor if not improving. Treatment Plan: Motrin for pain. Follow-up with not improving. Disposition: Discharge Impression: Acute left posterior knee muscle skeletal pain This note was generated with [employer] dictation software. It may contain incorrect words, [...] your Primary Care Provider. Call [facility] ([phone]) or report to the closest Emergency Room. Call 911 if necessary. 09/24/18 5180 <Electronically signed by Baljit Pfeiffer MD> Date Baljit Pfeiffer MD Cosigner Signature (If Indicated): Date CC: Jose Christianson MD DISCHARGE INSTRUCTION Observed: 09/24/2018 Status: F Source: [place] 11:04 PM [facility] REPOSITORY [facility] Medical Records Department [address] [place] [address] Discharge Instruction 09/24/187 MR#: [id number] Acct: [id number] Name: ESTEPHANIA HERNANDEZ Rep #: [id number] : 1955 63 From: Baljit Pfeiffer MD PCP: Jose Christianson MD Status: [facility] ER ED Disposition - Plan for [...] problems, contact your Primary Care Provider. Call [facility] ([phone]) or report to the closest Emergency Room. Call 911 if necessary. 09/24/18 2304 <Electronically signed by Baljit Pfeiffer MD> Date Baljit Pfeiffer MD Cosigner Signature (If Indicated): Date CC: Jose Christianson MD VENOUS DUPLEX Observed: 09/24/2018 Status: F Source: [place] IMAG/LIMITED/UNI 10:15 PM [facility] REPOSITORY [facility] Imaging Services [address] [place] [address] Venous Duplex Imag/Limited/Uni MR#: [id number] Acct: [id number] Name: ESTEPHANIA HERNANDEZ Rep #: [id number] : 1955 M 63 From: Gisele Franco MD PCP: Jose Christianson MD Status: [facility] ER Study: Venous Duplex Imag/Limited/Uni Date of Exam: 09/24/18 Exam# [id number] Ordering Dr: Baljit Pfeiffer MD STUDY: VENOUS [...] CC: Baljit Pfeiffer MD; Jose Christianson MD Title Abstractor: Signed BONE (FX/NONFRACTURE) Observed: 09/09/2018 Status: F Source: [place] 12:00 AM [facility] REPOSITORY Patient: ESTEPHANIA HERNANDEZ : 1955 (63/M) Acct Num: [id number] Phys: Gurmeet PADRONChapin Unit Num: [id number] Loc: LABSPEC Specimen: [id number] Received: 09/09/181436 Spec Type: Bone TISSUES 1 [...] cassette. / SJ:uri 09/09/18 TC: 5 CPT: 60251 HEADER OPERATION: Bone biopsy PRE-OP DIAGNOSIS: Non [...] dentigerous (follicular) cyst. AM:uri 09/10/18 Signed [facility] 09/13/18 <signature on file> Performed By: #### PBON #### [facility] [address] [place], [place], [address] VITAMIN D,25 HYDROXY Collected: 07/26/2018 Status: F Source: [place] 9:41 AM [facility] REPOSITORY TYPE CODE TESTS RESULT OUT OF REFERENCE UNITS RANGE LAB L506.1000 29.95-100.01 ng/mL Low Vitamin D 14.8 25-OH Result Comment: Vitamin D 25(OH) Status Range Deficiency <20 ng/mL (50nmol/L) Insuffciency 20 - 30 ng/mL (50 - 75 nmol/L) Sufficiency 30 - 100 ng/mL (75 - 250 nmol/L) Toxicity >100 ng/mL (>250 nmol/L) Performed By: #### L506.1000 #### [facility] [address] [place], [address] BASIC METABOLIC Collected: 07/26/2018 Status: F Source: [place] PROFILE (BMP) 9:41 AM [facility] REPOSITORY TYPE CODE TESTS RESULT OUT OF [...] By: #### L500.2500, L500.4100, L501.9520, L501.9910 #### [facility] [address] [place], [address] LIPID PROFILE Collected: 07/26/2018 Status: F Source: [place] 9:41 AM [facility] REPOSITORY TYPE CODE TESTS RESULT OUT OF [...] By: #### L500.2500, L500.4100, L501.9520, L501.9910 #### [facility] [address] [place], [address] THYROID STIM HORMONE Collected: 07/26/2018 Status: F Source: [place] (TSH) 9:41 AM [facility] REPOSITORY TYPE CODE TESTS RESULT OUT OF RANGE REFERENCE UNITS LAB L501.9520 0.358-3.74 uIU/mL Normal TSH 2.51 Performed By: #### L500.2500, L500.4100, L501.9520, L501.9910 #### [facility] [address] [place], [address] PSA,TOTAL - ANNUAL Collected: 07/26/2018 Status: F Source: [place] SCREEN 9:41 AM [facility] REPOSITORY TYPE CODE TESTS RESULT OUT OF RANGE REFERENCE UNITS LAB L501.9910 0.00-4.00 ng/mL Normal PSA,TOT 2.32 SCREEN Result Comment: This test was performed using the TPSA assay method for the [employer] chemistry system. Values obtained with different assay methods cannot be used interchangably. When changing PSA assays in the course of monitoring a patient, additional sequential testing should be carried out to confirm baseline values. Performed By: #### L500.2500, L500.4100, L501.9520, L501.9910 #### [facility] [address] [place], [address] EMERGENCY DEPARTMENT Observed: 03/01/2018 Status: F Source: [place] SUMMARY 11:22 PM [facility] REPOSITORY [facility] Medical Records Department [address] [facility] [place] [address] Emergency Department Summary 03/01/18 2320 MR#: [id number] Acct: [id number] Name: ESTEPHANIA HERNANDEZ Rep #: [id number] : 1955 62 From: Ed Juan MD [...] Chronic cough This note was generated with [employer] dictation software. It may contain incorrect words, [...] problems, contact your Primary Care Provider. Call [facility] ([phone]) or report to the closest Emergency Room. Call 911 if necessary. 03/01/18 5056 <Electronically signed by Ed Juan MD> Date Ed Juan MD Cosigner Signature (If Indicated): Date CC: Miah Fernandez MD DISCHARGE INSTRUCTION Observed: 03/01/2018 Status: F Source: [place] 11:22 PM [facility] REPOSITORY [facility] Medical Records Department [address] [place] [address] Discharge Instruction 03/01/182321 MR#: [id number] Acct: [id number] Name: ESTEPHANIA HERNANDEZ Rep #: [id number] : 1955 62 From: Ed Juan MD [...] your Primary Care Provider. Call [facility] ([phone]) or report to the closest Emergency Room. Call 911 if necessary. 03/01/182321 <Electronically signed by Ed Juan MD> Date Ed Juan MD Cosigner Signature (If Indicated): Date CC: Miah Fernandez MD CBC W/DIFF, AUTOMATED Collected: 03/01/2018 Status: F Source: [place] 10:05 PM [facility] REPOSITORY TYPE CODE TESTS RESULT OUT OF [...] Lymph 2.73 Performed By: #### L100.0100 #### [facility] [address] [place], [place], [address] BASIC METABOLIC Collected: 03/01/2018 Status: F Source: [place] PROFILE (BMP) 10:05 PM [facility] REPOSITORY TYPE CODE TESTS RESULT OUT OF [...] GAP 9 Performed By: #### L500.2500 #### [facility] [address] [facility] [place], [address] CHEST WITHOUT Observed: 03/01/2018 Status: F Source: [place] CONTRAST 9:50 PM [facility] REPOSITORY [facility] Imaging Services [address] [place] [address] Chest without Contrast MR#: [id number] Acct: [id number] Name: ESTEPHANIA HERNANDEZ Rep #: [id number] : 1955 M 62 From: Perla Hunter MD PCP: Miah Fernandez MD Status: REG ER Study: Chest without Contrast Date of Exam: 03/01/18 Exam# [id number] Ordering Dr: Ed Juan MD STUDY: CT [...] CC: Ed Juan MD; Miah Fernandez MD Title Abstractor: Signed CHEST PA AND LATERAL Observed: 03/01/2018 Status: F Source: [place] 9:05 PM [facility] REPOSITORY [facility] Imaging Services [address] [place] [address] Chest PA and Lateral MR#: [id number] Acct: [id number] Name: ESTEPHANIA HERNANDEZ Rep #: [id number] : 1955 M 62 From: Perla Hunter MD PCP: Miah Fernandez MD Status: REG ER Study: Chest PA and Lateral Date of Exam: 03/01/18 Exam# [id number] Ordering Dr: Ed Juan MD STUDY: X-RAY [...] CC: Ed Juan MD; Miah Fernandez MD Title Abstractor: Signed XR CHEST 2V FRONTAL/LAT Observed: 02/20/2018 Status: F Source: [place] 12:23 PM [facility] REPOSITORY * * *Final Report* * * [...] Other: . IMPRESSION: No acute radiographic abnormality. Title Abstractor: CYNTHIA Transcribe Date/Time: Feb 20 2018 12:27P Dictated by : ESTEPHANIA BRYANT MD This examination was interpreted and the report reviewed and electronically signed by: ESTEPHANIA BRYANT MD on Feb 20 2018 12:30PM EST [id number] PROGRESS Observed: 02/20/2018 Status: COMPLETED Source: [place] 12:19 PM [facility] [place] REPOSITORY HNO ID: [id number] Author: Dolly Stewart (Rt) Marcos Handy Service: (none) Author Type: Compensation Vice President Type: Progress Notes Filed: 02/20/2018 12:23 PM [...] PM PROGRESS Observed: 02/20/2018 Status: COMPLETED Source: [place] 12:10 PM [facility] REPOSITORY HNO ID: [id number] Author: Liana Francis (Pa) Service: (none) Author Type: Physician Preparing Box Tender Type: Progress Notes Filed: 02/20/2018 2:23 PM [...] YELENA WarnerOV Observed: 02/20/2018 Status: COMPLETED Source: [place] 12:00 PM [facility] REPOSITORY Office Visit (WSTR) ESTEPHANIA HERNANDEZ ([id number]) 1955 M Date Time Provider Department 02/20/18 [...] unspecified organism [J20.9] Order(s):XR CHEST 2V FRONTAL/LAT [4161100] Order #: [id number] FUTURE azithromycin (ZITHROMAX Z-RUTHY) 250 mg tabletTake [...] SEVERITY SOURCE 10/15/2018 Drug No Known Unknown [facility] Allergy/416 Allergies/F43925 [facility] 493503(SNOM 0388(RXNORM) Repository ED CT) 10/28/2014 Environ/420 SEASONAL OTHER: SEE C [facility] 134278(SNOM ALLERGIES [facility] ED CT) Repository ENCOUNTERS ENCOUNTERS ADMIT/DISCHARGE ACCOUNT ADMITTING ENCOUNTER LOCATION SOURCE NUMBER CLASS 11/06/2018 [id number] [facility] ing:LABSPEC Repository 10/15/2018/10/15/20 [id number] Emergency [address] ing:ED Repository 10/10/2018 [id number] Ambulatory [facility] ing:MTLAB Repository 09/24/2018/09/24/20 [id number] Emergency [address] ing:ED Repository 09/09/2018 [id number] Ambulatory [facility] ing:LABSPEC Repository 07/26/2018 [id number] Ambulatory [facility] ing:MTLAB Repository 03/01/2018/03/01/20 [id number] Emergency [address] ing:ED Repository 02/20/2018/02/21/20 [id number] Ambulatory [address] Repository 02/20/2018/02/22/20 [id number] Ambulatory [address] Repository PAYERS PAYERS ENCOUNTER GUARANTOR PAYER SUBSCRIBER SOURCE 11/06/2018 ESTEPHANIA A Primary ESTEPHANIA A [place] [id number] Insurance:AULTCAREPol THOMASDOB: [facility] icy Number: [id number] [id number] Repository [address]Xqq: (330) Date:7929-01-77Ly [phone] () [address], [place] [address]GG: 11/06/2018 Secondary NOT GIVENUNK [place] Insurance:SELF PAY [facility] Number: Effective Repository Date:2018-11-06 10/15/2018 ESTEPHANIA A Primary ESTEPHANIA A [place] [id number] Insurance:AULTCAREPol [facility]ASDOB[facility] icy Number: [id number], [place] [id number] Repository [address]Vhw: ([phone]) Date:1031-48-20Qr [phone] () [address], [place] [address]ZT: 10/15/2018 Secondary NOT GIVENUNK [place] Insurance:SELF PAY [facility] Number: Effective Repository Date:2018-10-15 10/10/2018 ESTEPHANIA A Primary ESTEPHANIA A [place] [id number] Insurance:AULTCAREPol THOMASDOB: [facility] icy Number: [id number], [place] [id number] Repository [address]Yvl: (330) Date:1400-84-60Lx [phone] () [address], [place] [address]FV: 10/10/2018 Secondary NOT GIVENUNK [place] Insurance:SELF PAY [facility] Number: Effective Repository Date:2018-10-10 09/24/2018 ESTEPHANIA A Primary ESTEPHANIA A [place] [id number] Insurance:AULTCAREPol [place]: [facility] icy Number: [id number], [place] [id number] Repository [address]Jyb: (330) Date:5148-17-47Bb [phone] (HP) [address], [place] [address]CR: 09/24/2018 Secondary NOT GIVENUNK [place] Insurance:SELF PAY [facility]: Effective Repository Date:2018-09-24 09/09/2018 ESTEPHANIA A Primary ESTEPHANIA A [place] [id number] Insurance:AULTCAREPol THOMASDOB: [facility] [place] icy Number: [id number], [place] [id number] Repository [address]Zrl: (330) Date:9935-02-68Js [phone] (HP) [address], [place] [address]MB: 09/09/2018 Secondary NOT GIVENUNK [place] Insurance:SELF PAY [facility] Number: Effective Repository Date:2018-09-09 07/26/2018 Estephania A Primary Estephania A [place] [id number] Insurance:AULTCAREPol ThomasDOB: [place] icy Number: [id number], [place] [id number] Repository [address]Kpc: (330) Date:5644-36-07Vi [phone] (HP) [address], [place] [address]WV: 07/26/2018 Secondary NOT GIVENUNK [place] Insurance:SELF PAY [facility] Number: Effective Repository Date:2018-07-26 03/01/2018 Estephania A Primary Estephania A [place] [id number] Insurance:AULTCAREPol ThomasDOB: [place] icy Number: [id number], [place] [id number] Repository [address]Owy: (330) Date:7268-73-10Ta [phone] (HP) [address], [place] [address]GM: 03/01/2018 Secondary NOT GIVENUNK [place] Insurance:SELF PAY [facility] Number: Effective Repository Date:2018-03-01
== END 2018-10-15 01:31 | disposition home or self-care (01) ==
PROVIDERS: Emergency Provider Emergency Medicine; Family Provider Family Medicine; PCP Family Medicine
DX: M10.9 Gout, unspecified (principal); I10 Essential (primary) hypertension; Z79.899 Other long term (current) drug therapy
CPT/HCPCS: 99282

== ENCOUNTER → 2018-11-06 18:11 | Outpatient (CLI) | payer OTHER, SELFPAY ==
[2018-10-15 00:44] VITALS: BMI 25.6
[2018-11-08 15:44] LABS: Body Fluid QC Type(s) BF4; Source- Body Fluid OTHER
[2018-11-08 15:55] LABS: CRYSTALS, BODY FLUID MONOSODIUM URATE
[2018-11-11 14:42] LABS: Pathologist Review Reviewed
== END ==
PROVIDERS: Family Provider Family Medicine; PCP Family Medicine; Referring Provider Podiatrist; Visit Provider Podiatrist
DX: M10.9 Gout, unspecified (principal)
CPT/HCPCS: 87070; 87205; 89060

== ENCOUNTER → 2019-06-18 | Outpatient (CLI) | payer OTHER, SELFPAY ==
[2019-06-18 14:33] LABS: Anion Gap 7 (5-15); BUN 15 mg/dL (7-18); BUN/Creat Ratio 13.6 RATIO (10-20); Calcium,Total 9.2 mg/dL (8.5-10.1); Chloride 106 mmol/L (98-107); Cholesterol 213 mg/dL (200); EST Glomerular Filtration Rate 71 mL/min (>60); Est Glom Filt Rate - Afr Amer 86 mL/min (>60); Glucose 87 mg/dL (74-106); High Density Lipoprotein 86 mg/dL; Potassium 4.3 mmol/L (3.5-5.1); Sodium Level 141 mmol/L (136-145); Triglycerides 54 mg/dL; Very Low Density Lipoprotein 11 mg/dL (5-40)
== END | disposition home or self-care (01) ==
LOC: MTLAB 11:22
PROVIDERS: Family Provider Family Medicine; PCP Family Medicine; Referring Provider Family Medicine; Visit Provider Family Medicine
DX: Z00.00 Encounter for general adult medical examination without abnormal findings (principal)
CPT/HCPCS: 36415; 80048; 80061

== ENCOUNTER → 2021-01-07 10:33 | Outpatient (CLI) | payer MEDICARE, OTHER, SELFPAY ==
[2021-01-07 12:57] LABS: Vitamin D,25 Hydroxy 39.3 ng/mL
[2021-01-07 13:04] LABS: BUN 13 mg/dL (7-18); Glucose 95 mg/dL (74-106)
[2021-01-07 13:05] LABS: Anion Gap 5 (5-15); BUN/Creat Ratio 11.8 RATIO (10-20); Calcium,Total 9.4 mg/dL (8.5-10.1); Chloride 107 mmol/L (98-107); Cholesterol 240 mg/dL (200); EST Glomerular Filtration Rate 71 mL/min (>60); Est Glom Filt Rate - Afr Amer 86 mL/min (>60); High Density Lipoprotein 95 mg/dL; PSA,Total - Annual Screen 2.54 ng/mL (0.00-4.00); Sodium Level 141 mmol/L (136-145); Triglycerides 70 mg/dL; Very Low Density Lipoprotein 14 mg/dL (5-40)
== END ==
PROVIDERS: PCP Family Medicine; Referring Provider Family Medicine; Visit Provider Family Medicine
DX: Z00.00 Encounter for general adult medical examination without abnormal findings (principal); I10 Essential (primary) hypertension; Z12.5 Encounter for screening for malignant neoplasm of prostate; E55.9 Vitamin D deficiency, unspecified; Z20.822 Contact with and (suspected) exposure to COVID-19
CPT/HCPCS: 36415; 80048; 80061; 82306; 84153; 84403; 86769; G0103

== ENCOUNTER → 2021-03-12 08:36 | Outpatient (CLI) | payer MEDICARE, OTHER, SELFPAY ==
--- NOTE | 2021-03-12 09:01 | MRI_ITS ---
STUDY: MRI RIGHT FOREFOOT WITHOUT CONTRAST REASON FOR EXAM: Pain radiating from third through fifth toes and across forefoot, evaluate for stress fractures of the fourth and fifth metatarsals. TECHNIQUE: Standardized fat and water weighted pulse sequences were obtained in all 3 orthogonal planes. COMPARISON: None. FINDINGS: There is mild arthrosis metatarsophalangeal joint of the hallux with a small dorsal osteophyte of the first metatarsal and mild chondral thinning (T1 sagittal image 7). There is mild arthrosis of the tibial sesamoid-first metatarsal articulation with small marginal osteophytes and mild chondral thinning (T1 sagittal image 7) and mild subchondral cystic change of the tibial sesamoid. There is a bipartite fibular sesamoid with mild bone edema/cystic change (inversion recovery sagittal image 11) suggestive of sesamoiditis. Normal interphalangeal joint of the hallux. Normal proximal and distal phalanges of the great toe. Normal medial and lateral heads of the flexor hallucis brevis tendons. Normal flexor and extensor hallucis longus tendons. Normal second through fifth metatarsophalangeal (MTP) joints. Normal interphalangeal joints of the second through fifth toes. Normal proximal, middle and distal phalanges of the second through fifth toes. Normal first through fourth intermetatarsal spaces. Normal flexor and extensor tendons of the second through fifth toes. There is bone edema in the proximal fourth metatarsal (inversion recovery series 6 images 7-9), a stress phenomenon. Otherwise, unremarkable metatarsals. There is mild subchondral cystic change adjacent to the navicular-medial cuneiform articulation (inversion recovery sagittal images 8, 9). Normal intrinsic muscles of the forefoot. There is a pressure lesion in the subcutis adipose space at the plantar aspect of the fifth metatarsophalangeal joint (T1 series 4 images 18-20). MRI/Lower Ext/No Jt/w/o IMPRESSION: Bone edema of the proximal fourth metatarsal, a stress phenomenon. Mild arthrosis of the first metatarsophalangeal joint and tibial sesamoid-first metatarsal articulation. Mild fibular sesamoiditis. Pressure lesion in the subcutis adipose space plantar to the fifth metatarsophalangeal joint. Electronically Signed: Chato English MD at 10:33 EDT Tel , Service support ,
== END ==
PROVIDERS: PCP Family Medicine; Referring Provider Podiatrist; Visit Provider Podiatrist
DX: M84.374A Stress fracture, right foot, initial encounter for fracture (principal)
CPT/HCPCS: 73718

== ENCOUNTER 2021-04-11 17:19 | Emergency (ER) | payer MEDICARE, OTHER, SELFPAY ==
[2021-04-11 17:20] VITALS: BP 163/81; PULSE 100; RESP 18; TEMP 36.8; O2SAT 99; BMI 24.6
--- NOTE | 2021-04-11 19:20 | RAD_ITS ---
STUDY: X-RAY - LEFT HAND REASON FOR EXAM: Male, 65 years old. small digit infection TECHNIQUE: 3 view(s) of the hand. COMPARISON: None. FINDINGS: Normal radiocarpal articulation. Normal distal radioulnar joint. Normal visualized carpal bones. Normal carpal articulations Normal carpometacarpal articulation of the thumb. Normal second through fifth carpometacarpal joints. Normal metacarpi. Normal metacarpophalangeal joint of the thumb. Normal interphalangeal joint of the thumb. Normal proximal and distal phalanges of the thumb. Normal metacarpophalangeal joints of the second through fifth fingers. Normal proximal and distal interphalangeal joints of the second through fifth fingers. Normal phalanges of the second through fifth fingers. No visualized fracture. The soft tissue structures are unremarkable. RAD/Hand Min 3 Views IMPRESSION: Normal x-ray examination of the hand. Electronically Signed: Randy Garcia MD at 20:10 EDT , Service support ,
--- NOTE | 2021-04-11 21:05 | EDS_ITS ---
HPI History of Present Illness Chief Complaint: Upper Extremity Injury Narrative Narrative: Patient presenting for evaluation secondary to abnormal skin changes of the small digits on the left hand. Patient states that he was cleaning strawberries yesterday and he felt somewhat of a pinprick in the pad of his small digit on the left hand. States that over the course of about the last 4 hours he has had a onset of change in color of his finger There was some concern for the possibility of either a vascular insult versus a spider bite, patient does not state that he saw anything bite him. Review of systems otherwise negative. He is not on any sort of anticoagulants.. It is a bruising type change in color, but has not been associated with any sort of numbness, pain, weakness, fevers, or constitutional symptoms. Patient does have an underlying history of Raynaud's. Patient is on Norvasc. Patient was seen by primary care who was concerned and sent him to the emergency department. Patient is not anticoagulated or immunosuppressed. PFSH PFSH Home Medications amlodipine 2.5 mg PO DAILY 07/17/17 [History Last Taken Unknown] albuterol sulfate [Ventolin Hfa (SP)] 1 puff INHALATION Q6H PRN PRN 03/01/18 [History Last Taken Unknown] cholecalciferol (vitamin D3) [Vitamin D3] 2,000 unit PO DAILY 09/24/18 [History Last Taken Unknown] ibuprofen 800 mg PO TID PRN PRN #20 tab 10/15/18 [Rx Last Taken Unknown] aspirin 325 mg PO DAILY #14 tab 04/11/21 [Rx Last Taken Unknown] doxycycline hyclate 100 mg PO BID #10 tab 04/11/21 [Rx Last Taken Unknown] Allergy/AdvReac Type Severity Reaction Status Date / Time No Known Allergies Allergy Verified 04/11/21 17:20 Social History Smoking Status: Never smoker ROS ROS ED Constitutional Constitutional ED: Denies chills or subjective Cardiovascular Cardiovascular: Denies chest pain Respiratory/Chest Respiratory/Chest: Denies cough or dyspnea Gastrointestinal Gastrointestinal: Denies nausea or vomiting Musculoskeletal Musculoskeletal: Denies myalgias Integumentary Denies rash Neurologic Neurologic: Denies paresthesias or weakness Hematologic/Lymphatic Hematologic/Lymphatic: Denies easy bleeding or easy bruising Allergic/Immunologic Allergic/Immunologic ED: Reports other Details: Negative for immunosuppression EXAM Physical Exam Const Vital Signs: 04/11/21 17:20 Temperature 98.3 F Temperature Source Temporal Pulse Rate 100 Respiratory Rate 18 Blood Pressure 163/81 H Blood Pressure Mean 108 Pulse Ox 99 Oxygen Delivery Method Room Air Positive well nourished and well developed General Appearance ED: well developed HEENT normocephalic and atraumatic Eyes EOMs intact bilaterally Neck full ROM Resp normal respiratory effort Cardio regular rate and regular rhythm Cardio Narrative: 2+ radial pulses bilaterally symmetric. Skin is warm bilaterally. Extremity full ROM Extremity Narrative: Beasley small digit on the left hand shows what appears to be more of an ecchymosis of the small digit. Patient does have good capillary refill. Normal flexion and extension. No deformities. No fluid collections. No lymphangitic streaking. There is normal radial and ulnar pulses normal capillary refill of all of the fingers and the finger is nontender to palpation. Neuro oriented x3 Sensorium / Orientation: alert Psych mental status grossly normal Skin Rashes: no rashes MDM MDM MDM Narrative Medical decision making narrative: Patient presented secondary to an abnormal s kin change of the small digit. X-ray was obtained and by my personal interpretation as well as radiology is found to be negative. This really seems on physical exam to be more so of a bruising type presentation. He has good capillary refill, this does not seem to be a circulatory issue. Its not painful so I do not think that he is a vascular occlusion and it does not seem like that would be a presentation for an infection. Tissue was not necrotic so it does not seem like this would be coming from a brown recluse. I feel that the likely explanation is that the patient potentially punctured some capillaries or blood vessels when he felt the pinprick yesterday and now he is getting spreading ecchymosis going down the finger. Regardless I will treat the patient from 2 different avenues and put him on aspirin in case this is a small vascular insult and place him on doxycycline in case this is an infection or something from a insect bite. Patient will follow up with primary care. Patient understands signs and symptoms which to return. Radiography Diagnostic Testing: Radiology Impression Hand X-Ray 04/11/21 19:20 IMPRESSION: Normal x-ray examination of the hand. Electronically Signed: Randy Garcia MD at 20:10 EDT , Service support , Discharge Plan Triage Chief Complaint: Upper Extremity Injury ED Provider: Keaml Rangel Dx/Rx/DC Orders Clinical Impression: Superficial bruising of finger Instructions: ED Finger Contusion Prescriptions: New doxycycline hyclate 100 mg tablet 100 mg PO BID Qty: 10 RF: 0 aspirin 325 mg tablet,delayed release (DR/EC) 325 mg PO DAILY Qty: 14 RF: 0 No Action amlodipine 5 MG tablet 2.5 mg PO DAILY RF: 0 albuterol sulfate [Ventolin HFA] 1 INHALER inhaler 1 puff inhalation Q6H PRN PRN (Reason: Wheezing) RF: 0 cholecalciferol (vitamin D3) [Vitamin D3] 2,000 UNIT capsule 2,000 unit PO DAILY RF: 0 ibuprofen 800 MG tablet 800 mg PO TID PRN PRN (Reason: Pain) Qty: 20 RF: 0 Primary Care Provider: Jose Christianson Referrals: Jose Christinason MD [Primary Care Provider] - 2 Days Disposition Disposition: Home, self care
[2021-04-11] MEDS: Aspirin 325 MG Tablet PO (21:17)
[2021-04-11] MEDS: Doxycycline 100 MG CAPSULE PO (21:17)
[2021-04-11 21:28] LABS: Absolute Lymphocyte Count 1.51 X10^3/uL (0.83-4.51); Absolute Neutrophil Count 6.1 X10^3/uL (2.0-7.7); Basophil# 0.04 X10^3/uL; Basophil% 0.5 % (0-1); Eosinophil# 0.03 X10^3/uL; Eosinophils% 0.4 % (0-5); Hematocrit 42.9 % (40-54); Hemoglobin 14.2 g/dL (13.0-16.5); Lymphocyte # 1.51 X10^3/ul (0.83-4.51); Mean Corp Hgb Conc 33.1 g/dL (32-36); Mean Corpuscular Hgb 30.9 pg (27.0-32.0); Mean Corpuscular Volume 93.3 fL (80-94); Mean Platelet Vol. 10.5 fl (6.2-12.0); Monocyte# 0.68 X10^3/uL; Monocyte% 8.1 % (0-10); NRBC Flagged by Analyzer 0 % (0-5); Neutrophil % 72.5 % (47-70); Platelet Count 213 K/mm3 (150-450); RBC Distribution Width CV 12.1 % (11.6-14.6); RBC Distribution Width SD 41.9 fl (35.1-43.9); White Blood Count 8.4 K/mm3 (4.4-11.0)
== END 2021-04-11 21:22 | disposition home or self-care (01) ==
PROVIDERS: Emergency Provider Emergency Medicine; PCP Family Medicine
DX: S60.052A Contusion of left little finger without damage to nail, initial encounter (principal); X58.XXXA Exposure to other specified factors, initial encounter; Z79.82 Long term (current) use of aspirin; Z79.899 Other long term (current) drug therapy
CPT/HCPCS: 73130; 85025; 99283

== ENCOUNTER → 2021-10-17 | Outpatient (CLI) | payer MEDICARE, OTHER, SELFPAY | END | disposition home or self-care (01) | PROVIDERS: PCP Family Medicine; Referring Provider Family Medicine; Visit Provider Family Medicine | DX: U07.1 COVID-19 (principal) | CPT/HCPCS: 87635; U0005; U0003 ==

== ENCOUNTER 2021-10-19 12:57 | Outpatient (CLI) | payer MEDICARE, OTHER, SELFPAY ==
[2021-10-19 13:09] VITALS: BP 139/80; PULSE 72; RESP 16; TEMP 36.6; O2SAT 99; BMI 23.5
[2021-10-19] MEDS: 0.9% Saline Lock 10 ML Syringe IV (13:14)
[2021-10-19 14:06] VITALS: BP 134/85; PULSE 64; RESP 16; TEMP 37; O2SAT 97
[2021-10-19 14:57] VITALS: BP 137/76; PULSE 68; RESP 16; TEMP 36.7; O2SAT 99
== END 2021-10-19 15:06 | disposition home or self-care (01) ==
LOC: MS3OUT 12:57 → MS3 12:58
PROVIDERS: PCP Family Medicine; Referring Provider Nurse Practitioner Adult Health; Visit Provider Nurse Practitioner Adult Health
DX: Z23 Encounter for immunization (principal); U07.1 COVID-19
CPT/HCPCS: J7050; M0245; Q0245; A4216

== ENCOUNTER 2021-10-31 14:00 | Outpatient (RCR) | payer MEDICARE, OTHER, SELFPAY ==
--- NOTE | 2021-10-06 11:49 | HP.PTEVAL ---
Patient's Visit Information ESTEPHANIA HERNANDEZ is a 66 year old M referred to Physical Therapy by BARBARA LIND with a diagnosis of L knee pain, OA. Date of Evaluation: 10/06/21 Physical Therapist: Hernan Beckett, AMANT, OCS, CSCS - Visit Plan Frequency: 3x /Week Duration: 4-6 Weeks Plan: 3x/week for 3-6 as needed for. 1. rollout and STM R hip flexor and quad anad stretch. 2. desensitization massage to R patella. 3. strength R quad and return to sport of lateral movement, cutting, jump and biking/hiking. - Subjective No previous knee problems but has run his whole life. Started playing pickle ball in June and fell and landed on L knee on the court whcih started pain in mid July around the . it locked up and had a hard time iving it and could barely walk. Went to [facility] a week later and had x rays showing OA and bursitis. Just rested and did nothing with it and it got better in two weeks and started pickleball again and banged knee again 2 weeks ago on concrete slab in condo and could hardly walk a few days later. Now still has pain rolling on his mattress. Went to see Dr Lind and recommeneded therapy and may need MRI or injection if this doesn't help. Has been taking meloxicam whcih helps and now can get around OK. Can now walk decent. No pain today but gets a giving out in L knee at times, nO falls. Tender on top of L knee cap. Sleep is not ever great and knee not keeping him up. Pain 0-2/10 lately but was 7 before meloxicam. Acitvities are limited with walking and biking and pickle ball due to this. Not employed. [facility] ADLS are getting done this week, last week was tough. Patient 80% better overall. - Pain L patella. Pain Intensity (Out of 10): 0 Pain Intensity Range: 0, 2 - Objective Walks normal and I today, squats and chair trasnfer without pain, steps reciprocal and double steps reciprocally without discomfort. Good balance. Tender to palpation medial patella on surface, otherwise no tenderness today. AROM B knees 0-133 without pain or problem. Tightness and pain L knee cap with quad stretch and hip flexors very tight B.. Other musclkes patent and strong. 4+/5 R quad strength vs 5 L, ankles 5/5 B, hip abd and ext 4- B. hip flexion 4+ B. No pain. reflexes 2/3 patella and achilles. Sensation LE WNL to gross light touch. - valgus and varus tests.- bounce home, - patellar grin, - ant drawer.-post sag. - Balance/Special Test Scores Lower Extremity Functional Score: 44 - Goals Goal 1:: Walk 3 miles without pain Goal Time Frame: 4-6 Weeks Goal 2:: No pain with walking or biking and full go ex I for knee strength adn stretch Goal Time Frame: 4-6 Weeks Goal 3:: return to play pickleball without pain or limitations Goal Time Frame: 4-6 Weeks Goal 4:: LEFS 72 Goal Time Frame: 4-6 Weeks - Rehabilitation Potential Physical Therapy Diagnosis: L patellar pain causing funcitonal limtations Rehabilitation Potential: Good - Anticipated Interventions Patient/Client Instruction: Educate patient on: Condition, Plan of Care For the Purpose of:: To decrease pain, To improve nutrient delivery to tissue, To improve muscle performance and motor function, To improve ability of physical actions for home/community/work/leisure Therapeutic Exercise to Include: Strength training, Flexibilty training, Gait and locomotor training For the Purpose of:: To decrease pain, To increase ROM, To improve muscle performance and motor function, To improve ability of physical actions for home/community/work/leisure Manual Therapy Techniques to Include: Passive ROM, Soft tissue mobilization For the Purpose of:: To increase ROM, To improve muscle performance and motor function, To increase tolerance to activity/condition/position Cryotherapy (ice pack, ice massage): Yes For the Purpose of:: To decrease swelling/inflammation Thank you for the opportunity to evaluate your patient. For Medicare and Medicare HMO plans, please review the plan of care and approve it. It will need to be FAXED BACK to us at [phone] for Medicare purposes. For Medicare only, by signing this I certify the plan of care. Please let me know if there are questions or concerns regarding this plan of care. Physician Signature: Date:
--- NOTE | 2021-10-31 14:41 | HP.PTDCSUM ---
It has been my pleasure to treat ESTEPHANIA HERNANDEZ referred by BARBARA LIND, with the diagnosis of L knee pain, OA for a total of 5 visit(s). Discharge Date: 10/31/21 Please see the following information for a summary of their discharge status. Subjective: Doing Ok. Feeling well. 95% better. No pain. Had covid for last two weeks, has walked 4 miles and biked 4 miles. L patella. Pain Intensity (Out of 10): 0 % Improvement: 95 Objective/Function: Full aROM L knee without pain, 5/5 strength L hip and knee.. jogs without a problem. Steps are normal. doing well. Goal 1:: Walk 3 miles without pain Goal Progress: Goal Met Goal 2:: No pain with walking or biking and full go ex I for knee strength adn stretch Goal Progress: Goal Met Goal 3:: return to play pickleball without pain or limitations Goal Progress: tomorrow Goal 4:: LEFS 72 Goal Progress: Goal Met Plan: d/c to [facility], released to pickleball If there are questions or concerns regarding this patient's physical therapy, please feel free to call me at [phone]. Thank you for the referral of this patient. Sincerely, Hernan Beckett, DPT, OCS, CSCS Balance/Gait/Functional tests - Balance/Special Test Scores Lower Extremity Functional Score: 76
== END 2021-10-31 19:00 | disposition home or self-care (01) ==
LOC: PT 14:00
PROVIDERS: PCP Family Medicine
DX: M70.52 Other bursitis of knee, left knee (principal); W19.XXXD Unspecified fall, subsequent encounter; M25.562 Pain in left knee; M17.12 Unilateral primary osteoarthritis, left knee
CPT/HCPCS: 97110; 97140; 97161; 97164

== ENCOUNTER → 2022-06-29 | Outpatient (CLI) | payer MEDICARE, OTHER, SELFPAY ==
[2022-06-29 14:58] LABS: Absolute Neutrophil Count 5.8 X10^3/uL (2.0-7.7); Basophil# 0.06 X10^3/uL; Basophil% 0.8 % (0-1); Eosinophil# 0.06 X10^3/uL; Eosinophils% 0.8 % (0-5); Hematocrit 43.7 % (40-54); Hemoglobin 14.6 g/dL (13.0-16.5); Lymphocyte % 15.2 % (19-41); Mean Corp Hgb Conc 33.4 g/dL (32-36); Mean Corpuscular Hgb 31.6 pg (27.0-32.0); Mean Corpuscular Volume 94.6 fL (80-94); Mean Platelet Vol. 11.7 fl (6.2-12.0); Monocyte# 0.78 X10^3/uL; Monocyte% 9.9 % (0-10); NRBC Flagged by Analyzer 0 % (0-5); Neutrophil # 5.76 X10^3/uL (2.7-7.7); Neutrophil % 73.2 % (47-70); Platelet Count 215 K/mm3 (150-450); RBC Distribution Width CV 12.7 % (11.6-14.6); RBC Distribution Width SD 44.2 fl (35.1-43.9); Red Blood Count 4.62 M/mm3 (4.6-6.2); White Blood Count 7.9 K/mm3 (4.4-11.0)
[2022-06-29 15:14] LABS: Anion Gap 8 (5-15); BUN 16 mg/dL (7-18); BUN/Creat Ratio 12.7 RATIO (10-20); Calcium,Total 9.5 mg/dL (8.5-10.1); Chloride 105 mmol/L (98-107); Cholesterol 212 mg/dL (200); Creatinine, Serum 1.26 mg/dL (0.70-1.30); EST Glomerular Filtration Rate 61 mL/min (>60); Est Glom Filt Rate - Afr Amer 73 mL/min (>60); Glucose 92 mg/dL (74-106); High Density Lipoprotein 88 mg/dL; PSA,Total- Diagnostic 3.06 ng/mL (0.0-4.0); Potassium 4.2 mmol/L (3.5-5.1); Sodium Level 140 mmol/L (136-145); Triglycerides 58 mg/dL; Very Low Density Lipoprotein 12 mg/dL (5-40); Vitamin D,25 Hydroxy 40.2 ng/mL
== END | disposition home or self-care (01) ==
LOC: MTLAB 11:34
PROVIDERS: PCP Family Medicine; Referring Provider Family Medicine; Visit Provider Family Medicine
DX: Z00.00 Encounter for general adult medical examination without abnormal findings (principal); T14.8XXA Other injury of unspecified body region, initial encounter
CPT/HCPCS: 36415; 80048; 80061; 82306; 84153; 85025

== ENCOUNTER → 2022-10-13 | Outpatient (CLI) | payer MEDICARE, OTHER, SELFPAY ==
--- NOTE | 2022-10-13 07:03 | ECHOD_ITS ---
Procedure This was a 2D Doppler, Color Flow transthoracic echocardiogram. Exam performed in department. Left Ventricle Normal LV size. Left ventricular systolic function is normal. The estimated ejection fraction is 65 %. No evidence for diastolic dysfunction. No regional wall motion abnormalities noted. Right Ventricle Normal RV size. Normal systolic function. Atria The left atrium is mildly enlarged. Normal right atrium. No doppler evidence for ASD. Mitral Valve There is no mitral annular calcification. Normal mitral valve. Mild (1+) mitral valve insufficiency. Tricuspid Valve Normal tricuspid valve. Trivial tricuspid valve insufficiency. Right ventricular systolic pressure estimated to be 27 mmHg. Aortic Valve Trisinus/trileaflet aortic valve. Normal aortic valve. Pulmonic Valve The pulmonic valve is not well visualized. Great Vessels Normal sized aortic root. Pericardium/Pleural No pericardial effusion. MMode/2D Measurements & Calculations LVIDd: 4.8 cm IVSd: 1.1 cm Ao root diam: 2.9 cm LVIDs: 3.2 cm LVPWd: 1.1 cm RVDd: 3.4 cm FS: 34.0 % LAV(MOD-bp): 66.3 ml LA A4 area: 20.9 cm2 LA dimension(2D): 4.4 cm LAV(MOD-bp) Indexed: 36.5 ml/m2 LAV(MOD-sp2): 64.6 ml LAV(MOD-sp4): 64.0 ml RA A4 area: 19.3 cm2 Time Measurements MV dec time: 0.19 sec Doppler Measurements & Calculations MV E max shlomo: 75.7 cm/sec Lat Peak E' Shlomo: 10.5 cm/sec Med Peak E' Shlomo: 10.3 cm/sec MV A max shlomo: 75.7 cm/sec E/E' lat: 7.2 E/E' med: 7.3 MV E/A: 1.0 MV dec slope: 419.4 cm/sec2 Ao V2 max: 158.3 cm/sec LV V1 max: 101.2 cm/sec Ao max P.1 mmHg LV V1 max P.1 mmHg Ao V2 mean: 108.4 cm/sec LV V1 mean P.3 mmHg Ao mean P.4 mmHg LV V1 mean: 73.2 cm/sec Ao V2 VTI: 38.2 cm LV V1 VTI: 25.5 cm AV (velocity ratio): 0.67 MR max shlomo: 545.0 cm/sec PA V2 max: 97.3 cm/sec TR max shlomo: 245.7 cm/sec MR max P.8 mmHg PA V2 mean: 64.0 cm/sec TR max P.3 mmHg MR mean shlomo: 465.0 cm/sec MR mean P.8 mmHg MR VTI: 210.6 cm ECHO/Echo Complete Interpretation Summary Left ventricular systolic function is normal. The estimated ejection fraction is 65 %. The left atrium is mildly enlarged. Mild (1+) mitral valve insufficiency. Trivial tricuspid valve insufficiency. Right ventricular systolic pressure estimated to be 27 mmHg. No evidence for diastolic dysfunction. Ordering Physician: Jose Dorman Performed By:
--- NOTE | 2022-10-13 12:39 | STRESSREP ---
Stress Test Report Date: 10-13-2022 Procedure: Exercise tolerance test/imaging study Indications: Palpitations, chest discomfort, dyspnea on exertion, COVID-19 Consent: Per the patient Procedure: The patient exercised on a Marcelo protocol for 9 minutes completing Stage III achieving a peak heart rate of 136 bpm (89% predicted maximal heart rate) with resting blood pressure of 140/72 mmHg and a peak blood pressure 152/68 mmHg and a peak MET capacity of 10 METs. The baseline ECG demonstrated normal sinus rhythm. The peak exercise ECG demonstrated no obvious ECG changes. There was an isolated PVC during exercise, and occasional PVC during recovery, and intermittent ventricular bigeminy during recovery. The functional capacity was considered good. There was no complaint of chest discomfort during exercise or recovery. The examination was discontinued secondary to dyspnea. Impression: 1. Technically adequate (percent predicted maximal heart rate greater than 85%) exercise tolerance test 2. Peak exercise ECG with no obvious ECG changes 3. There was an isolated PVC during exercise, and occasional PVC during recovery, and an intermittent ventricular bigeminy during recovery 4. Nuclear images pending Myocardial perfusion imaging study: Technique: The patient was injected with 11.9 mCi of technetium 99m Cardiolite and subsequently rest SPECT Cardiolite nuclear imaging was obtained in the horizontal long, vertical long, and short axis views. The patient exercised on a Marcelo protocol for 9 minutes completing Stage III achieving a peak heart rate of 136 bpm (89% predicted maximal heart rate) with resting blood pressure of 140/72 mmHg and a peak blood pressure 152/68 mmHg and a peak MET capacity of 10 METs. The patient was injected with 32.9 mCi of technetium 99m Cardiolite and subsequently stress SPECT Cardiolite nuclear imaging was obtained in the horizontal long, vertical long, and short axis views. A gated Cardiolite study at peak stress was obtained. Interpretation: Rest and stress SPECT Cardiolite nuclear imaging status post realignment, normalization, and attenuation correction, demonstrates the appearance of relative uniform tracer uptake and myocardial perfusion appearing within normal limits. There is end systolic thickening and brightening. The gated Cardiolite study demonstrates myocardial thickening and inward wall motion. The reported LVEF is 61%. Impression: 1. Rest and stress SPECT Cardiolite nuclear imaging demonstrate relative uniform tracer uptake and myocardial perfusion appearing within normal limits. 2. The gated Cardiolite study reports an LVEF of 61%. This note was generated with Dragon dictation software. It may contain incorrect words, spelling, and punctuation that were not noted in checking the note before signing.
== END | disposition home or self-care (01) ==
PROVIDERS: PCP Family Medicine; Visit Provider Internal Medicine Cardiovascular Disease
DX: R00.2 Palpitations (principal); I49.3 Ventricular premature depolarization; R06.00 Dyspnea, unspecified; R07.9 Chest pain, unspecified
CPT/HCPCS: 78452; 93017; 93306; A9500; A4216

== ENCOUNTER → 2023-06-27 | Outpatient (CLI) | payer MEDICARE, OTHER, SELFPAY ==
[2023-06-27 13:56] LABS: Anion Gap 4 (5-15); BUN 14 mg/dL (7-18); BUN/Creat Ratio 12.4 RATIO (10-20); Calcium,Total 9.4 mg/dL (8.5-10.1); Chloride 106 mmol/L (98-107); Creatinine, Serum 1.13 mg/dL (0.70-1.30); EST Glomerular Filtration Rate 68 mL/min (>60); Est Glom Filt Rate - Afr Amer 83 mL/min (>60); Glucose 85 mg/dL (74-106); Magnesium 2.4 mg/dL (1.6-2.6); Potassium 3.8 mmol/L (3.5-5.1); Sodium Level 138 mmol/L (136-145); Thyroid Stim Hormone (TSH) 2.27 uIU/mL (0.358-3.74)
== END | disposition home or self-care (01) ==
LOC: LAB 12:06
PROVIDERS: PCP Family Medicine; Referring Provider Nurse Practitioner Gerontology; Visit Provider Nurse Practitioner Gerontology
DX: R00.2 Palpitations (principal)
CPT/HCPCS: 36415; 80048; 83735; 84443

== ENCOUNTER → 2023-07-06 | Outpatient (CLI) | payer MEDICARE, OTHER, SELFPAY | END | disposition home or self-care (01) | PROVIDERS: PCP Family Medicine; Referring Provider Nurse Practitioner Gerontology; Visit Provider Nurse Practitioner Gerontology | DX: R00.2 Palpitations (principal) | CPT/HCPCS: 93225; 93226 ==

== ENCOUNTER → 2024-06-26 | Outpatient (CLI) | payer MEDICARE, OTHER, SELFPAY ==
[2024-06-26 10:30] LABS: Anion Gap 3 (5-15); BUN 19 mg/dL (7-18); BUN/Creat Ratio 15.7 RATIO (10-20); Calcium,Total 9.3 mg/dL (8.5-10.1); Chloride 109 mmol/L (98-107); Cholesterol 211 mg/dL (200); Creatinine, Serum 1.21 mg/dL (0.70-1.30); EST Glomerular Filtration Rate 63 mL/min (>60); Est Glom Filt Rate - Afr Amer 76 mL/min (>60); Glucose 99 mg/dL (74-106); High Density Lipoprotein 70 mg/dL; PSA,Total - Annual Screen 3.21 ng/mL (0.00-4.00); Potassium 4.4 mmol/L (3.5-5.1); Sodium Level 140 mmol/L (136-145); Triglycerides 90 mg/dL; Very Low Density Lipoprotein 18 mg/dL (5-40)
== END | disposition home or self-care (01) ==
LOC: MTLAB 07:01
PROVIDERS: PCP Family Medicine; Referring Provider Family Medicine; Visit Provider Family Medicine
DX: Z00.00 Encounter for general adult medical examination without abnormal findings (principal); Z12.5 Encounter for screening for malignant neoplasm of prostate
CPT/HCPCS: 36415; 80048; 80061; 84153; G0103

== ENCOUNTER → 2024-10-23 | Outpatient (CLI) | payer MEDICARE, OTHER, SELFPAY ==
--- NOTE | 2024-10-23 15:06 | RAD_ITS ---
STUDY: X-RAY CHEST REASON FOR EXAM: Male, 69 years old. COUGH TECHNIQUE: PA and lateral views of the chest. COMPARISON: 03/01/2018 FINDINGS: Opacity in the posterior lung gotti only seen on the lateral view and correlation with CT would be useful. There is no demonstrated pleural abnormality. Normal size heart. Normal mediastinum and michelle. Normal visualized pulmonary arteries. Normal visualized aortic arch and descending thoracic aorta. Normal visualized thoracic spine. Normal visualized ribs, clavicles, and shoulders. There is no demonstrated abnormality of the visualized soft tissue structures of the upper abdomen. RAD/Chest PA and Lateral IMPRESSION: Opacity posteriorly in the upper lobes and correlation with CT would be useful to exclude mass. Electronically Signed: Ernie Abdullahi MD at 16:10 EST ,
== END | disposition home or self-care (01) ==
LOC: MTRAD 15:05
PROVIDERS: PCP Family Medicine
DX: R05.8 Other specified cough (principal)
CPT/HCPCS: 71046

== ENCOUNTER → 2024-10-30 | Outpatient (CLI) | payer MEDICARE, OTHER, SELFPAY ==
--- NOTE | 2024-10-30 13:45 | CT_ITS ---
EXAM: CT CHEST WITH INTRAVENOUS CONTRAST CLINICAL INDICATION: biateral pulmonary densities TECHNIQUE: Helically acquired images were obtained of the chest with intravenous contrast. This CT exam was performed using one or more of the following dose reduction techniques: automated exposure control, adjustment of the mA and/or kV according to patient size, and/or use of iterative reconstruction technique. CONTRAST: IV 100mL Isovue-300 COMPARISON: 03/01/2018 FINDINGS: LUNGS AND PLEURAL SPACES: Unremarkable. No mass. No consolidation or edema. No pleural effusion or thickening. No pneumothorax. HEART: Unremarkable. Heart size is normal. No pericardial effusion. MEDIASTINUM: Unremarkable. No mediastinal or hilar adenopathy. Esophagus is unremarkable. No hiatal hernia. THYROID: Unremarkable. No thyroid lesions. BONES/JOINTS: Unremarkable. No suspicious lytic or blastic abnormality. VASCULATURE: Unremarkable. Thoracic aorta is non-dilated. No thoracic aortic dissection. No obvious central pulmonary embolism although this study was not performed with the pulmonary embolism protocol. OTHER FINDINGS: There is a small stable focal herniation of the left hemidiaphragm. . CT/Chest WITH Contrast IMPRESSION: No acute findings in the chest. There has been no significant change from the reference exam. Electronically Signed: Naeem Mayberry MD at 0:12 EST ,
[2024-10-30 14:17] LABS: CREATININE FINGERSTICK < 1.0 mg/dL (0.70-1.30); EGFR FINGERSTICK > 60.0000 mL/min (>60)
== END | disposition home or self-care (01) ==
LOC: CT 13:44
PROVIDERS: PCP Family Medicine; Referring Provider Family Medicine; Visit Provider Family Medicine
DX: R93.89 Abnormal findings on diagnostic imaging of other specified body structures (principal)
CPT/HCPCS: 71260; Q9967

== ENCOUNTER → 2025-07-24 | Outpatient (CLI) | payer MEDICARE, OTHER, SELFPAY ==
--- NOTE | 2025-07-24 13:49 | ECHOD_ITS ---
Reason For Study Reason For Study: ARRHYTHMIA Procedure This was a 2D Doppler, Color Flow transthoracic echocardiogram. Exam performed in department. Left Ventricle Normal LV size. Left ventricular systolic function is normal. The left ventricular ejection fraction is 65 %. No evidence for diastolic dysfunction. No regional wall motion abnormalities noted. Right Ventricle Normal RV size. Normal systolic function. Atria Normal left atrium. Normal right atrium. Mitral Valve Mild diffuse mitral valve thickening. Mild (1+) mitral valve insufficiency. Tricuspid Valve Normal tricuspid valve. Trivial tricuspid valve insufficiency. Pulmonary artery systolic pressure is 25 mmHg. Aortic Valve Trisinus/trileaflet aortic valve. Pulmonic Valve Normal pulmonic valve. Trivial pulmonic valve insufficiency. Great Vessels Normal sized aortic root. Pericardium/Pleural No pericardial effusion. MMode/2D Measurements & Calculations LVIDd: 5.0 cm IVSd: 0.97 cm Ao root diam: 3.1 cm LVIDs: 3.6 cm LVPWd: 0.76 cm FS: 27.2 % LAV(MOD-bp): 53.7 ml LVAd ap4: 30.4 cm2 LVAd ap2: 23.5 cm2 LAV(MOD-bp) Indexed: 30.0 ml/m2 LVLd ap4: 8.1 cm LVLd ap2: 8.3 cm LAV(MOD-sp2): 50.2 ml EDV(MOD-sp4): 95.7 ml EDV(MOD-sp2): 58.4 ml LAV(MOD-sp4): 55.4 ml EDV(sp4-el): 96.6 ml EDV(sp2-el): 57.0 ml LVAs ap4: 14.0 cm2 LVAs ap2: 11.3 cm2 LVLs ap4: 6.4 cm LVLs ap2: 7.0 cm ESV(MOD-sp4): 26.5 ml ESV(MOD-sp2): 16.1 ml ESV(sp4-el): 26.1 ml ESV(sp2-el): 15.7 ml EF(MOD-sp4): 72.3 % EF(MOD-sp2): 72.4 % EF(sp4-el): 73.0 % SV(MOD-sp4): 69.1 ml SV(MOD-sp2): 42.3 ml SV(sp4-el): 70.5 ml SI(MOD-sp4): 38.6 ml/m2 SI(MOD-sp2): 23.6 ml/m2 LA A4 area: 19.2 cm2 LA dimension(2D): 4.2 cm RA A4 area: 15.5 cm2 TAPSE: 2.1 cm Time Measurements MV dec time: 0.19 sec Doppler Measurements & Calculations MV E max shlomo: 76.3 cm/sec Lat Peak E' Shlomo: 10.2 cm/sec Med Peak E' Shlomo: 8.7 cm/sec MV A max shlomo: 85.0 cm/sec E/E' lat: 7.5 E/E' med: 8.8 MV E/A: 0.90 MV V2 max: 104.2 cm/sec MV P1/2t max shlomo: 71.2 cm/sec Ao V2 max: 162.0 cm/sec MV max P.3 mmHg MV P1/2t: 70.5 msec Ao max P.5 mmHg MV V2 mean: 48.7 cm/sec Ao V2 mean: 109.5 cm/sec MV mean P.1 mmHg MV dec slope: 295.7 cm/sec2 Ao mean P.5 mmHg MV V2 VTI: 27.9 cm MVA(P1/2t): 3.1 cm2 Ao V2 VTI: 36.9 cm AV (velocity ratio): 0.68 LV V1 max: 110.2 cm/sec PA V2 max: 106.0 cm/sec TR max shlomo: 232.1 cm/sec LV V1 max P.9 mmHg TR max P.6 mmHg LV V1 mean P.5 mmHg LV V1 mean: 74.6 cm/sec LV V1 VTI: 25.2 cm ECHO/Echo Complete Interpretation Summary The left ventricular ejection fraction is 65 %. No evidence for diastolic dysfunction. Mild diffuse mitral valve thickening. Mild (1+) mitral valve insufficiency. Pulmonary artery systolic pressure is 25 mmHg. Compared to prior study, there is no significant change. Ordering Physician: Danni Martino Referring Physician: Jose Christianson Performed By: Nancy Montanez RDCS, RVT
--- OUTSIDE RECORDS SUMMARY | 2025-07-24 14:09 | XMS RPT_ITS | CCD ---
Author Organization [facility] [employer] [facility] [employer] Care Team Providers Care Tagman Name Role Phone Miah Fernandez Unavailable Unavailable Unavailable Primary Care Provider UnavailDr. Jose Robledo Primary Care Provider [phone] Dr. Jose Christianson Referring Provider [phone] Jose Dorman Attending Provider [phone] Dr. Jose Christianson Primary Care Provider Dr. Jose Christianson Referring Provider [phone] Siddhartha RN [facility] Jerry Attending Provider Pcp MANAGER PLUMBING, No Primary Care Provider UnavailJose Robledo Primary Care Unavailable Di Mata Attending Unavailable Di Mata Referring Unavailable Jose Christianson Primary Care Unavailable Georgiaorrow RN [facility]ending [facility]available [facility] TONY Referring Unavailable Danni García Attending Unavail able Danni García Referring Unavail able Jose Christianson Primary Care Unavailable Jose Christianson Primary Care Unavailable Jose Christianson Referring Unavailable Danni García Attending Unavail able Allergies Allergy Classification Reported Allergen(s) Allergy Type Date of Onset Reaction(s) Facility (3 sources) Seasonal allergy; Translations: [SEASONAL ALLERGIES] Allergy to substance 4 Other: See Comments [facility] Medications Current Medications Medication Drug Class(es) Dates Sig (Normalized) Sig (Original) allopurinol 100 mg oral tablet (6 sources) Xanthine Oxidase Inhibitor Start: 03-08-2024 take 1 tablet by mouth once allopurinol (ZYLOPRIM) 100 mg tablet Take 1 tablet by mouth every afternoon. 0 03/08/2024 Active Start: 10-19-2021 take 100 mg by mouth once andi y Allopurinol Active 100 MG PO DAILY October 19, 2021 1:00am amLODIPine 5 mg oral tablet (11 sources) Dihydropyridine Calcium Channel Karissa Start: 09-28-2022 End: 01-18-2023 take 2.5 mg by mouth once daily Amlodipine Discontinued 2.5 MG PO DAILY September 28, 2022 1:00am January 18, 2023 1:58pm Start: 07-17-2017 End: 09-28-2022 take 2.5 mg by mouth once daily Amlodipine Discontinued 2.5 MG PO DAILY July 17, 2017 12:00am September 28, 2022 5:23pm Start: 11-01-2016 amLODIPine (NO RVASC) 5 mg tablet cholecalciferol 0.05 mg oral capsule (4 sources) Vitamin D Start: 09-24-2018 take 1 capsule by mouth once daily Cholecalciferol (Vitamin D3) (Vitamin D3) 2,000 UNIT capsule Active 2000 UNIT PO DAILY September 24, 2018 1:00am predniSONE 5 mg oral tablet (2 sources) Start: 06-27-2023 Prednisone Act beverly 5 MG PO As Directed June 27, 2023 12:00am see taper instructions for poison sarahy Completed/Discontinued Medications Medication Drug Class(es) Dates Sig (Normalized) Sig (Original) [id number] 200 actuat albuterol 0.09 mg/actuat metered dose inhaler (1 source) beta2-Adrenergic Agonist Start: 8 End: 4 take 2 puff(s) by inhalation every six hours as needed albuterol HFA (PROAIR HFA) 90 mcg/actuation inhaler Inhale 2 Puffs as instructed every 6 hours as needed. 1 Inhaler 0 02/20/2018 04/24/2024 Discontinued azithromycin 250 mg oral tablet (1 source) Macrolide Antimicrobial Start: 4 End: 4 azithromycin (ZITHROMAX Z-RUTHY) 250 mg tablet Take 2 tablets by mouth day one, then 1 tablet daily until gone. 1 Package 0 10/28/2014 04/24/2024 Discontinued benzonatate 100 mg oral capsule (1 source) Non-narcotic Antitussive Start: 8 End: 4 take 2 capsules by mouth every eight hours as needed benzonatate (TESSALON PERLE) 100 mg capsule Take 2 capsules by mouth three times daily as needed. 30 capsule 0 02/20/2018 04/24/2024 Discontinued cephalexin 500 mg oral capsule (4 sources) Cephalosporin Antibacterial Start: 3 End: 3 take 500 mg by mouth every six hours Cephalexin Discontinued 500 MG PO EVERY 6 HOURS 40 August 31, 2013 12:00am October 14, 2013 3:44am methylPREDNISolone (1 source) Corticosteroid Start: 7 End: 4 methylPREDNISolone (MEDROL, RUTHY,) 4 mg Dose-Pack As Instructed per package 1 Package 0 11/23/2016 04/24/2024 Discontinued Problems Active Problems Problem Classification Problem Date Documented Da te Episodic/Chronic Cardiac dysrhythmias (4 sources) Irregular heart beat; Translations: [Cardiac arrhythmia, unspecified] Chronic Cardiac dysrhythmias (6 sources) Palpitations; Translations: [Palpitations] Onset: 02-27-2025 06-27-2023 Episodic Essential hypertension (6 sources) Essential hypertension; Translations: [Essential (primary) hypertension] Chronic Gout and other crystal arthropathies (3 sources) Gout; Translations: [Gout, unspecified] 09-18-2022 Chronic Nonspecific chest pain (6 sources) Chest pain; Translations: [Chest pain, unspecified] Episodic Open wounds of extremities (1 source) Laceration of left middle finger; Translations: [Laceration without foreign body of left middle finger without damage to nail, initial encounter] 04-24-2024 Episodic Other aftercare (1 source) Removal of sutures done; Translations: [Encounter for removal of sutures] 05-02-2024 Episodic Other lower respiratory disease (3 sources) Dyspnea; Translations: [Dyspnea, unspecified] 09-28-2022 Episodic Other lower respiratory disease (1 source) Dyspnea, unspecified; Translations: [Other respiratory abnormalities] Episodic Other screening for suspected conditions (not mental disorders or infectious disease) (1 source) Abnormal findings on diagnostic imaging of other specified body structures; Translations: [Abnormal findings on diagnostic imaging of other specified body structures] Onset: 11-25-2024 Chronic Other screening for suspected conditions (not mental disorders or infectious disease) (2 sources) Patient encounter status; Translations: [Encounter for screening for lipoid disorders] 12-18-2022 Episodic Residual codes; unclassified (4 sources) Peripheral edema; Translations: [Edema, unspecified] 07-18-2017 Episodic Superficial injury; contusion (4 sources) Contusion of finger; Translations: [Contusion of unspecified finger without damage to nail, initial encounter] 09-18-2022 Episodic Unclassified (1 source) Unknown / UNK(Unknown) Onset: 05-25-2017 Unclassified (4 sources) Age more than 65 years; Translations: [Over 65 years old] 10-18-2021 Unclassified (1 source) Other specified cough; Translations: [Other specified cough] Onset: 11-20-2024 Viral infection (4 sources) Disease caused by 2019-nCoV; Translations: [COVID-19] 09-18-2022 Episodic Past or Other Problems Problem Classification Problem Date Documented Da te Episodic/Chronic Unclassified (1 source) T14.90 Onset: 05-25-2017 Results Test Name Value Interpretation Reference Range Facility Cardiology Visit Reporton Cardiology Visit Report [facility] [address] [place] [address] OFFICE VISIT Date of Service: 02/27/25 MR#: [id number] Acct: [id number] Name: ESTEPHANIA HERNANDEZ Rep #: [id number] : 1955 Provider: AHSAN Parikh Age/Sex: 69/M [place] [facility] Status: Signed HPI HPI History of Present Illness Details: This is a 69-year-old white male who established with us for concerns of an irregular heartbeat as well as some concerns of chest pressure and dyspnea on exertion. Stress test in 11/2021 was negative for ischemia, echocardiogram in 2021 demonstrated preserved ejection fraction. He underwent a 24-hour Holter monitor on 07/06/2023, which demonstrated an average heart rate of 78 bpm and sinus rhythm with frequent PVCs. VE 22.1%, SVE 0.1%, atrial fibrillation 0.0%. From a cardiac standpoint, patient is doing well. He does have some vague chest pain, this are quick and not with activity. His exercise tolerance is stable for his age. He is able to play pickle ball one hour a day, he walks 3-4 miles a day. He does not have any worsening symptoms of shortness of breath. He denies any PND. He does not have any orthopnea. He does not have any symptoms of congestive heart failure. He does have palpitations at night. He does not have any lightheadedness or dizziness. He does not have any near-syncope or syncope. He does not have any lower extremity edema. He does not have any symptoms of claudication. Intake Vital Signs 01/09/24 13:24 02/27/25 14:59 Height 5 ft 7 in 5 ft 7 in Weight: 150 lb 150 lb BMI 23.5 23.5 BP 131/75 H Blood Pressure Location Lt brachial Position Sitting Respiration 18 Pulse 40 L Pulse Source NIBP Intake Visit Reasons: 1 Y FU Piper Helper Required: No Accompanied by: Self Is patient in pain?: No Allergies No Known Allergies Allergy (Verified 02/27/25 14:53) Medications ???Medication ???Instructions ???Recorded ???Confirmed ???Type cholecalciferol (vitamin D3) 50 2,000 unit PO DAILY 09/24/1802/27 History mcg (2,000 unit) capsule (Vitamin D3) allopurinol 100 mg tablet 100 mg PO DAILY 10/19/21 02/27/25 History metoprolol succinate 25 mg 12.5 mg PO BID 01/09/24 02/27/25 H istory tablet,extended release 24 hr amlodipine 5 mg tablet 5 mg PO DAILY this is a dose 03/1002/27/25 Rx increase #90 tabs Ejection fraction %: 61 Have you fallen in the past year?: No PFSH Medical History Basal cell carcinoma COVID-19 Essential hypertension Gout Melanoma Superficial bruising of finger Surgical History History of eye surgery History of tonsillectomy Status post Mohs surgery Family History Mother Cancer Breast Father CAD (coronary artery disease) History of coronary artery bypass surgery Hypertension Cancer Testicular Social History Smoking Status: Never smoker alcohol intake: current details: Daily substance use type: does not use caffeine: Yes Type: coffee Number of servings: 4 ROS Const Const: Positive for fatigue; Negative for weakness, headache(s) or weight gain ENT ENT: Negative for headache(s), dizziness, Nosebleed/epistaxis or balance problems Cardio Chest Pain: Yes Frequency: weekly Character: other (twinge per pt) Onset: at rest Location: mid sternal Duration: brief Palpitations: Yes (more noticeable at HS) feels like its: skipping Edema: Bilateral (occasional; mild) Muscle aches with walking: None Resp Respiratory: Negative for SOB with activity, SOB at rest or SOB orthopnea SOB lying down GI GI: Negative nausea, vomiting or heartburn Musc Musc: Positive for muscle aches/ myalgia and joint pain; Negative for muscle weakness or balance problems Neuro Neuro: Negative for dizziness, lightheadedness, near syncope, syncope, headache(s) or weakness Endo Endo: Positive for fatigue Cardiology Exam Const Appearance: cooperative, healthy appearing and well developed Head Head: normal to inspection Eyes General: appearance normal, both eyes and all related structures Neck Neck: normal visual inspection and no JVD Carotids: Negative bruit Chest Chest inspection: normal inspection of the chest Auscultation: Bilateral: Clear to Auscultation Cardio Rate: regular rate Rhythm: regular rhythm Heart sounds: S1 normal and S2 normal; Negative rub, gallop or murmur Neuro General: patient alert and patient oriented x3 Skin Skin: no rashes or lesions noted Extremities Lower Extremity Edema: None: Bilateral Psych Psychological: normal affect Supplemental Info (more content not included)... Normal [facility] CREATININE FINGERSTICKon CREATININE WB < 1.0 Normal 0.70-1.30 [facility] Comment on above: Performed By: #### L 9100.0200 #### [facility] [address] [place], [place], [id number] EGFR WB > 60.0000 Normal >60 [facility] Comment on above: Performed By: #### L 9100.0200 #### [facility] [address] [place], [address] Chest WITH Contraston 2024 Chest WITH Contrast [facility] [address] [place], [place] [address] Chest WITH Contrast MR#: [id number] Acct: [id number] Name: ESTEPHANIA HERNANDEZ Rep #: [id number] : 1955 M 69 From: Naeem Mayberry MD PCP: Dr. Jose Christianson MD Status: REG CLI Study: Chest WITH Contrast Date of Exam: 10/30/24 Exam# [id number] Ordering Dr: Di Mata MD [id number] EXAM: CT CHEST WITH INTRAVENOUS CONTRAST CLINICAL INDICATION: biateral pulmonary densities TECHNIQUE: Helically acquired images were obtained of the chest with intravenous contrast. This CT exam was performed using one or more of the following dose reduction techniques: automated exposure control, adjustment of the mA and/or kV according to patient size, and/or use of iterative reconstruction technique. CONTRAST: IV 100mL Isovue-300 COMPARISON: 03/01/2018 FINDINGS: LUNGS AND PLEURAL SPACES: Unremarkable. No mass. No consolidation or edema. No pleural effusion or thickening. No pneumothorax. HEART: Unremarkable. Heart size is normal. No pericardial effusion. MEDIASTINUM: Unremarkable. No mediastinal or hilar adenopathy. Esophagus is unremarkable. No hiatal hernia. THYROID: Unremarkable. No thyroid lesions. BONES/JOINTS: Unremarkable. No suspicious lytic or blastic abnormality. VASCULATURE: Unremarkable. Thoracic aorta is non-dilated. No thoracic aortic dissection. No obvious central pulmonary embolism although this study was not performed with the pulmonary embolism protocol. OTHER FINDINGS: There is a small stable focal herniation of the left hemidiaphragm. . CT/Chest WITH Contrast IMPRESSION: No acute findings in the chest. There has been no significant change from the reference exam. Electronically Signed: Naeem Mayberry MD at 0:12 EST , CC: Dr. Di Mata MD; Dr. Jose Christianson MD Broadcast Maintenance Technician: Signed [facility] Chest PA and Lateralon 10-23 Chest PA and Lateral [facility] [address] [place], [place] [address] Chest PA and Lateral MR#: [id number] Acct: [id number] Name: ESTEPHANIA HERNANDEZ Rep #: [id number] : 1955 M 69 From: Ernie Abdullahi MD PCP: Dr. Jose Christianson MD Status: REG CLI Study: Chest PA and Lateral Date of Exam: 10/23/24 Exam# [id number] Ordering Dr: Felix Tang NP RN [facility] -C [id number] STUDY: X-RAY CHEST REASON FOR EXAM: Male, 69 years old. COUGH TECHNIQUE: PA and lateral views of the chest. COMPARISON: 03/01/2018 FINDINGS: Opacity in the posterior lung gotti only seen on the lateral view and correlation with CT would be useful. There is no demonstrated pleural abnormality. Normal size heart. Normal mediastinum and michelle. Normal visualized pulmonary arteries. Normal visualized aortic arch and descending thoracic aorta. Normal visualized thoracic spine. Normal visualized ribs, clavicles, and shoulders. There is no demonstrated abnormality of the visualized soft tissue structures of the upper abdomen. RAD/Chest PA and Lateral IMPRESSION: Opacity posteriorly in the upper lobes and correlation with CT would be useful to exclude mass. Electronically Signed: Ernie Abdullahi MD at 16:10 EST , CC: Felix TONY NP-C Kitty; Dr. Jose Christianson MD Broadcast Maintenance Technician: Signed [facility] CNOVon 05-02-2024 CNOV Office Visit (UCWSTR ) ESTEPHANIA HERNANDEZ ([id number]) 1955 M Date Time Provider Department 05/02/24 1:45 PM KAELYN RYAN [facility] During your visit today, we recorded the following information about you: Temperature Pulse Respiration Blood pressure 97 degrees 54/minute 18/minute 132/81 Weight 69.9 kg Kaelyn Ryan APRN.CNP 05/02/2024 1:50 PM Signed ASSESSMENT/PLAN: 1. Visit for suture removal - ICD9: V58.32, ICD10: Z48.02 - 2 sutures removed per protocol; patient tolerated procedure well. - Follow-up with your PCP in 3-5 days if symptoms have not improved or sooner if symptoms worsen - Discussed red flags and need for immediate medical evaluation if any occur. - Discussed supportive care treatment with fluids, rest and analgesia. - Discussed expected course of illness JOY Dee Kathy, APRN.CNP 05/02/2024 1:53 PM Signed Subjective Suture Removal Estephania Hernandez is a 68 year old male who presents for suture removal. He has 2 sutures in his left middle finger that were placed here on 04/24. He denies any pain or concerns. Review of Systems Constitutional: Negative for chills and fever. Musculoskeletal: Negative for joint pain and myalgias. Skin: Negative for itching and rash. BP 132/81 Pulse (!) 54 Temp 36.1 ?C (97 ?F) Resp 18 Wt 69.9 kg (154 lb) SpO2 97% No past medical history on file. No past surgical history on file. ALLERGIES Seasonal Allergies MEDICATIONS allopurinol (ZYLOPRIM) 100 mg tablet Take 1 tablet by mouth every afternoon. amLODIPine (NORVASC) 5 mg tablet No family history on file. Social History Tobacco Use Smoking status: Never Smokeless tobacco: Never Objective Physical Exam Vitals and nursing note reviewed. Constitutional: Appearance: Normal appearance. Musculoskeletal: General: No swelling or tenderness. Hands: Skin: General: Skin is warm and dry. Findings: No erythema or rash. Neurological: Mental Status: He is alert. ASSESSMENT/PLAN: 1. Visit for suture removal - ICD9: V58.32, ICD10: Z48.02 - 2 sutures removed per protocol; patient tolerated procedure well. - Follow-up with your PCP in 3-5 days if symptoms have not improved or sooner if symptoms worsen - Discussed red flags and need for immediate medical evaluation if any occur. - Discussed supportive care treatment with fluids, rest and analgesia. - Discussed expected course of illness Kaelyn Ryan APRN.CNP Allergies As of Date: 05/02/2024 Noted Allergy Reaction SEASONAL ALLERGIES 10/28/2014 14 - Other: See Comments Comments: Sneezing, eyes Date Reviewed: 05/02/2024 Reviewed by: Jillian Kim MA - Fully Assessed Reason for Visit: Suture Removal [105] Cmt: L hand middle finger x 04/24 Primary Visit Diagnosis:Visit for suture removal [Z48.02] Prescriptions as of 05/02/2024 - allopurinol (ZYLOPRIM) 100 mg tablet Take 1 tablet by mouth every afternoon. - amLODIPine (NORVASC) 5 mg tablet Problem List As Of Date: 05/02/2024 (None) Other instructions from your clinician: ASSESSMENT/PLAN: 1. Visit for suture removal - ICD9: V58.32, ICD10: Z48.02 - 2 sutures removed per protocol; patient tolerated procedure well. - Follow-up with your PCP in 3-5 days if symptoms have not improved or sooner if symptoms worsen - Discussed red flags and need for immediate medical evaluation if any occur. - Discussed supportive care treatment with fluids, rest and analgesia. - Discussed expected course of illness Kaelyn Ryan APRN.[facility] Encounter Status:Closed by KAELYN RYAN on 05/02/24 [facility] CNOVon 04-24-2024 CNOV Office Visit (UCWSTR ) ESTEPHANIA HERNANDEZ ([id number]) 1955 M Date Time Provider Department 04/24/24 7:00 PM CASTRO PLASENCIA [facility] During your visit today, we recorded the following information about you: Temperature Pulse Respiration Blood pressure 98.1 degrees 62/minute 16/minute 124/60 Weight 70 kg Castro Plasencia MD 04/24/2024 7:32 PM Signed Patient presents with: Laceration: Middle finger Left hand with butter knife HPI: Stabbed his left middle with a butter knife while frozen hamburger patties this evening. He has bleeding from the cut. He washed the wound and used peroxide. Had tetanus booster in 2020. MEDICATIONS: allopurinol (ZYLOPRIM) 100 mg tablet Take 1 tablet by mouth every afternoon. amLODIPine (NORVASC) 5 mg tablet ALLERGIES: ALLERGIES Allergen Reactions Seasonal Allergies Other: See Comments Sneezing, eyes VITALS: BP 124/60 Pulse 62 Temp 36.7 ?C (98.1 ?F) Resp 16 Wt 70 kg (154 lb 5.2 oz) SpO2 98% PE: Pleasant, in no acute distress. Right hand dominant. Finger: left middle. 1.5cm laceration on the lateral aspect and pad of the distal phalange. Procedure: Anesthesia: deferred. Site cleansed with hibiclens on gauze and irrigation under tap water. 2 simple interrupted sutures with 5-0 Surgipro II monofilament. Hemostasis achieved with wound closure. Wound dressed with bacitracin on an adhesive bandage. ASSESSMENT/PLAN: 1. Laceration of left middle finger without foreign body without damage to nail, initial encounter - ICD9: 883.0, ICD10: S61.213A Keep sutures covered and dry for 48 hours. The dressing may be changed as needed. After 48 hours, sutures may be exposed to limited water but not submerged. Apply continuous pressure for 10 minutes if bleeding occurs. Seek re-evaluation for sign of infection such as spreading redness, warmth, pus-like discharge, increasing pain, or fever. Return for suture removal in 7 days. Castro Plasencia MD Allergies As of Date: 04/24/2024 Noted Allergy Reaction SEASONAL ALLERGIES 10/28/2014 14 - Other: See Comments Comments: Sneezing, eyes Date Reviewed: 04/24/2024 Reviewed by: Sandy Mercado - Fully Assessed Reason for Visit: Laceration [6047] Cmt: Middle finger Left hand with butter knife Primary Visit Diagnosis:Laceration of left middle finger without foreign body without damage to nail, initial encounter [S61.213A] Prescriptions as of 04/24/2024 - allopurinol (ZYLOPRIM) 100 mg tablet Take 1 tablet by mouth every afternoon. - amLODIPine (NORVASC) 5 mg tablet Problem List As Of Date: 04/24/2024 (None) Medications Discontinued During This Encounter Prescriptions - albuterol HFA (PROAIR HFA) 90 mcg/actuation inhaler (Discontinued) Inhale 2 Puffs as instructed every 6 hours as needed. - benzonatate (TESSALON PERLE) 100 mg capsule (Discontinued) Take 2 capsules by mouth three times daily as needed. - azithromycin (ZITHROMAX Z-RUTHY) 250 mg tablet (Discontinued) Take 2 tablets by mouth day one, then 1 tablet daily until gone. - methylPREDNISolone (MEDROL, RUTHY,) 4 mg Dose-Pack (Discontinued) As Instructed per package Level of Service: OFFICE/OUTPATIENT [facility] 15 MINUTES [84088] Disposition: Return in about 1 week (around 05/01/2024) for suture removal. LOS History for Encounter --- Level of Service: OFFICE/OUTPATIENT NEW MDM 15 MINUTES[14704] Date AND Time: 04-24-2024 7:31 PM Recorded by User: CASTRO PLASENCIA Follow-up and Disposition History for Encounter Date Provider Department Center 04/24/2024 [id number] PLASENCIA [facility] Jie Encounter Status:Closed by CASTRO PLASENCIA on 04/24/24 Normal [facility] [place] Basophil percentageOrdered B y: Claritza Carl on 06-27-2023 Chloride [Moles/Vol] 106 mmol/L 98-107 [facility] Glucose [Mass/Vol] 85 mg/dL 74-[address] [facility] Potassium [Moles/Vol] 3.8 mmol/L 3.5-5.1 [facility] Sodium [Moles/Vol] 138 mmol/L 136-[address] [facility] Laboratory - Chemistry and C hemistry - challengeOrdered By: Claritza Carl on 06-27-2023 CO2 [Moles/Vol] 28.0 mmol/L 21.0-32.0 [facility] Magnesium [Mass/Vol] 2.4 mg/dL 1.6-2.6 [facility] Urea nitrogen/Creatinine [Mass ratio] 12.4 mg/mg 10-20 [facility] No Panel InformationOrdered By: Claritza Carl on 06-27-2023 Estimated GFR (MDRD) Amer 83 mL/min >60 [facility] Comment on above: GFR Calc Estimated GFR (MDRD) Non-Af Amer 68 mL/min >60 [facility] Comment on above: Non- GFR Calc Thyroid Stimulating Hormone (TSH) 2.27 uIU/mL 0.358-3.74 [facility] Serum or plasma calcium brayden urement (mass/volume)Ordered By: Claritza Carl on 06-27-2023 Calcium [Mass/Vol] 9.4 mg/dL 8.5-10.[address] [facility] Serum or plasma creatinine m easurement (mass/volume)Ordered By: Claritza Carl on 06-27-2023 Creatinine [Mass/Vol] 1.13 mg/dL 0.70-1.30 [facility] Comment on above: The validity of the calculated GFR & GFRAA in patients over 70 years has not been determined. Clinical correlation is essential. Serum or plasma urea nitroge n measurement (mass/volume)Ordered By: Claritza Carl on 06-27-2023 Urea nitrogen [Mass/Vol] 14 mg/dL 7-18 [facility] Thin prep Papanicolaou smear with manual screeningOrdered By: Claritza Carl on 06-27-2023 Thin prep Papanicolaou smear with manual screening 4 5-15 [facility] Absolute lymphocyte counton 06-29-2022 Lymphocytes Auto (Unsp spec) [#/Vol] 1.20 10*3/uL 0.83-4.51 [facility] Work Phone: Basophil percentageon 2021 Basophils/100 WBC (Bld) 0.8 % 0-1 [facility] Work Phone: Chloride [Moles/Vol] 105 mmol/L 98-107 [facility] Work [facility]: Cholesterol [Mass/Vol] 212 mg/dL <200 [facility] Work Phone: [phone] Comment on above: <200 mg/dL Desirable 200-240 mg/dL Borderline >240 mg/dL High Risk Eosinophils/100 WBC (Bld) 0.8 % 0-5 [facility] Work Phone: Glucose [Mass/Vol] 92 mg/dL 74-[address] [facility] Work Phone: Neutrophils (Bld) [#/Vol] 5.8 10*3/uL 2.0-7.7 [facility] Work Phone: Neutrophils/100 WBC (Bld) 73.2 % 47-70 [facility] Work Phone: Potassium [Moles/Vol] 4.2 mmol/L 3.5-5.1 [facility] Work Phone: Sodium [Moles/Vol] 140 mmol/L 136-[address] [facility] Work Phone: Triglyceride [Mass/Vol] 58 mg/dL <199 [facility] Work Phone: Comment on above: The drugs N-Acetylcy steine and Metamizole may falsely depress this assay.Serum Triglycerides Reference Interval Normal <150 mg/dL Borderline high 150 - 199 mg/dL High 200 - 499 mg/dL Very High > or = 500 mg/dL WBC (Bld) [#/Vol] 7.9 10*3/uL 4.4-11.[address] [facility] Work Phone: Blood erythrocytes count (nu mber/volume)on 06-29-2022 RBC (Bld) [#/Vol] 4.62 10*6/uL 4.6-6.2 [facility] Work Phone: Blood hemoglobin measurement (mass/volume)on 06-29-2022 Hemoglobin (Bld) [Mass/Vol] 14.6 g/dL 13.0-16.5 [facility] Work Phone: Blood lymphocytes/100 leukoc yteson 06-29-2022 Lymphocytes/100 WBC (Bld) 15.2 % 19-41 [facility] Work Phone: Blood monocytes/100 leukocyt eson 06-29-2022 Monocytes/100 WBC (Bld) 9.9 % 0-10 [facility] Work Phone: Blood platelet mean volumeon 06-29-2022 Platelet mean volume (Bld) [Entitic vol] 11.7 fL 6.2-12.0 [facility] Work Phone: Determination of erythrocyte mean corpuscular volume (MCV)on 06-29-2022 MCV (RBC) [Entitic vol] 94.6 fL 80-94 [facility] Work Phone: Hematocrit Auto (Bld) [Volum e fraction]on 06-29-2022 Hematocrit (Bld) [Volume fraction] 43.7 % 40-54 [facility] Work Phone: Laboratory - Chemistry and C hemistry - challengeon 06-29-2022 CO2 [Moles/Vol] 27.0 mmol/L 21.0-32.0 [facility] Work Phone: Urea nitrogen/Creatinine [Mass ratio] 12.7 mg/mg 10-20 [facility] Work Phone: Laboratory - Hematology and Cell countson 06-29-2022 Erythrocyte distribution width (RBC) [Entitic vol] 44.2 fL 35.1-43.9 [facility] Work Phone: Erythrocyte distribution width (RBC) [Ratio] 12.7 % 11.6-14.6 [facility] Work Phone: Immature granulocytes/100 WBC (Bld) 0.100 % 0.0-0.9 [facility] Work Phone: Comment on above: IG% - Immature Granu locytes (promyelocytes, myelocytes and metamyelocytes) > 1% indicates that a LEFT SHIFT is Present. MCH (RBC) [Entitic mass] 31.6 pg 27.0-32.0 [facility] Work Phone: Nucleated RBC/100 WBC (Bld) [Ratio] 0 % 0-5 [facility] Work Phone: MCHC Auto (RBC) [Mass/Vol]on 06-29-2022 MCHC (RBC) [Mass/Vol] 33.4 g/dL 32-36 [facility] Work Phone: No Panel Informationon 06-29 Estimated GFR (MDRD) Amer 73 mL/min >60 [facility] Work Phone: Comment on above: GFR Calc Estimated GFR (MDRD) Non-Af Amer 61 mL/min >60 [facility] Work Phone: Comment on above: Non- GFR Calc Prostate Specific Antigen Total 3.06 ng/mL 0.0-4.0 [facility] Work Phone: Comment on above: This test was perfor med using the TPSA assay method for the[facility]. Values obtained with differentassay methods cannot be used interchangably.When changing PSA assays in the course of monitoring apatient, additional sequential testing should be carriedout to confirm baseline values. Vitamin D 25-Hydroxy 40.2 ng/mL [facility] Work Phone: Comment on above: Vitamin D 25(OH) Sta tus Range Deficiency <20 ng/mL (50nmol/L) Insufficiency 20 - 30 ng/mL (50 - 75 nmol/L) Sufficiency 30 - 100 ng/mL (75 - 250 nmol/L) Toxicity >100 ng/mL (>250 nmol/L) Platelets bldon 06-29-2022 Platelets (Bld) [#/Vol] 215 10*3/uL 150-450 [facility] Work Phone: Serum or plasma calcium brayden urement (mass/volume)on 06-29-2022 Calcium [Mass/Vol] 9.5 mg/dL 8.5-10.[address] [facility] Work Phone: Serum or plasma cholesterol in HDL measurement (mass/volume)on 06-29-2022 Cholesterol in HDL [Mass/Vol] 88 mg/dL >40 [facility] Work Phone: Comment on above: The drugs N-Acetylcy steine and Metamizole may falsely depress this assay. Reference Range HDL <40 mg/dL Low HDL Cholesterol HDL >or= 60 mg/dL High HDL Cholesterol Serum or plasma cholesterol in VLDL measurement (mass/volume)on 06-29-2022 Cholesterol in VLDL [Mass/Vol] 12 mg/dL 5-40 [facility] Work Phone: Serum or plasma creatinine m easurement (mass/volume)on 06-29-2022 Creatinine [Mass/Vol] 1.26 mg/dL 0.70-1.30 [facility] Work Phone: Comment on above: The validity of the calculated GFR & GFRAA in patients over 70 years has not been determined. Clinical correlation is essential. Serum or plasma low density lipoprotein (LDL) cholesterol measurement (mass/volume)on 06-29-2022 Cholesterol in LDL [Mass/Vol] 112 mg/dL 0-130 [facility] Work Phone: Serum or plasma urea nitroge n measurement (mass/volume)on 06-29-2022 Urea nitrogen [Mass/Vol] 16 mg/dL 7-18 [facility] Work Phone: Thin prep Papanicolaou smear with manual screeningon 06-29-2022 Thin prep Papanicolaou smear with manual screening 8 5-15 [facility] Work Phone: MRI UPPER EXTREMITY RIGHT W JT WO CONTRASTon 04-15-2022 Patient Name: ESTEPHANIA HERNANDEZ [facility] ACCESSION EXAM DATE/TIME PROCEDURE ORDERING PROVIDER [id number] 04/15/2022 09:00 EDT MRI Up Ext Joint w/o DO JIANG MICHAEL L Contrast Right CPT code 38225 Reason For Exam (MRI Up Ext Joint w/o Contrast Right) impingement syndromr right shoulder, sprain of rotator cuff Report Exam Type: MRI Up Ext Joint w/o Contrast Right Exam Date and Time: 04/15/2022 9:00 AM EDT Demographics: Gender: Male; Age: 66 years Indication: Pain; Comparison: None available TECHNIQUE: MRI of the right shoulder was performed using a standard non-contrast protocol in three planes. FINDINGS: GLENOHUMERAL JOINT and OSSEOUS STRUCTURES: Alignment is anatomic. Moderate-sized glenohumeral joint effusion. No acute fracture, Hill-Sachs deformity or osseous Bankart defect. Partial-thickness glenohumeral chondral loss and a few superimposed areas of full-thickness chondral fissuring along the bony glenoid, with subarticular cystic change. LABRUM: Circumferential labral degeneration/nondispla felice tear. ROTATOR CUFF: Mild-moderate supraspinatus and to a lesser extent infraspinatus tendinopathy. No high-grade partial or full-thickness tendon tear. The subscapularis and teres minor tendons are intact/unremarkable. BICEPS TENDON and ROTATOR INTERVAL: Long head biceps tendon: The biceps tendon is not identified, consistent with tear and retraction. MUSCLE BULK: Rotator cuff musculature is normal in bulk and signal without edema or atrophy. ACROMION and ACROMIOCLAVICULAR JOINT: Mild hypertrophic acromioclavicular joint osteoarthritis, with some subarticular bone marrow edema. No subacromial osteophyte. No os acromiale. SUBACROMIAL-SUBDELTOID BURSA: Trace edema in the subacromial-subdeltoid bursa. [facility] Report OTHER: No mass effect in the spinoglenoid notch, suprascapular notch or quadrilateral space. IMPRESSION: 1. Mild-moderate supraspinatus and to a lesser extent infraspinatus tendinopathy. No high-grade partial or full-thickness tendon tear. 2. Partial-thickness glenohumeral chondral loss and a few superimposed areas of full-thickness chondral fissuring along the bony glenoid, with subarticular cystic change. 3. Circumferential labral degeneration/nondispla felice tear. 4. Moderate-sized joint effusion. Report Dictated on --- Final --- Dictated: 04/15/2022 3:02 pm Dictating Physician: MD MCMANUS JASON Signed Date and Time: 04/15/2022 3:07 pm Signed by: MD MCAMNUS JASON Transcribed Date and Time: 04/15/2022 3:02 [facility] Adolfo Mcmanus MD - 04/15/2022 Patient Name: ESTEPHANIA HERNANDEZ [facility] ACCESSION EXAM DATE/TIME PROCEDURE ORDERING PROVIDER [id number] 04/15/2022 09:00 EDT MRI Up Ext Joint w/o DO JIANG MICHAEL L Contrast Right CPT code 78399 Reason For Exam (MRI Up Ext Joint w/o Contrast Right) impingement syndromr right shoulder, sprain of rotator cuff Report Exam Type: MRI Up Ext Joint w/o Contrast Right Exam Date and Time: 04/15/2022 9:00 AM EDT Demographics: Gender: Male; Age: 66 years Indication: Pain; Comparison: None available TECHNIQUE: MRI of the right shoulder was performed using a standard non-contrast protocol in three planes. FINDINGS: GLENOHUMERAL JOINT and OSSEOUS STRUCTURES: Alignment is anatomic. Moderate-sized glenohumeral joint effusion. No acute fracture, Hill-Sachs deformity or osseous Bankart defect. Partial-thickness glenohumeral chondral loss and a few superimposed areas of full-thickness chondral fissuring along the bony glenoid, with subarticular cystic change. LABRUM: Circumferential labral degeneration/nondispla felice tear. ROTATOR CUFF: Mild-moderate supraspinatus and to a lesser extent infraspinatus tendinopathy. No high-grade partial or full-thickness tendon tear. The subscapularis and teres minor tendons are intact/unremarkable. BICEPS TENDON and ROTATOR INTERVAL: Long head biceps tendon: The biceps tendon is not identified, consistent with tear and retraction. MUSCLE BULK: Rotator cuff musculature is normal in bulk and signal without edema or atrophy. ACROMION and ACROMIOCLAVICULAR JOINT: Mild hypertrophic acromioclavicular joint osteoarthritis, with some subarticular bone marrow edema. No subacromial osteophyte. No os acromiale. SUBACROMIAL-SUBDELTOID BURSA: Trace edema in the subacromial-subdeltoid bursa. [facility] Report OTHER: No mass effect in the spinoglenoid notch, suprascapular notch or quadrilateral space. IMPRESSION: 1. Mild-moderate supraspinatus and to a lesser extent infraspinatus tendinopathy. No high-grade partial or full-thickness tendon tear. 2. Partial-thickness glenohumeral chondral loss and a few superimposed areas of full-thickness chondral fissuring along the bony glenoid, with subarticular cystic change. 3. Circumferential labral degeneration/nondispla felice tear. 4. Moderate-sized joint effusion. Report Dictated on --- Final --- Dictated: 04/15/2022 3:02 pm Dictating Physician: MD MCMANUS JASON Signed Date and Time: 04/15/2022 3:07 pm Signed by: MD MCMANUS JASON Transcribed Date and Time: 04/15/2022 3:02 [facility] Work Phone: Radiology Study observation (narrative) [email or web address] Work Phone: MRI UPPER EXTREMITY RIGHT W JT WO CONTRASTOrdered By: Adolfo Mcmanus on 04-15-2022 [employer] Work Phone: MRI Up Ext Joint w/o Contras t [place] 04-15-2022 MRI Up Ext Joint w/o Contrast Right Patient Name: ESTEPHANIA HERNANDEZ [facility] ACCESSION EXAM DATE/TIME PROCEDURE ORDERING PROVIDER [id number] 04/15/2022 09:00 EDT MRI Up Ext Joint w/o DO JIANG MICHAEL L Contrast Right CPT code 26190 Reason For Exam (MRI Up Ext Joint w/o Contrast Right) impingement syndromr right shoulder, sprain of rotator cuff Report Exam Type: MRI Up Ext Joint w/o Contrast Right Exam Date and Time: 04/15/2022 9:00 AM EDT Demographics: Gender: Male; Age: 66 years Indication: Pain; Comparison: None available TECHNIQUE: MRI of the right shoulder was performed using a standard non-contrast protocol in three planes. FINDINGS: GLENOHUMERAL JOINT and OSSEOUS STRUCTURES: Alignment is anatomic. Moderate-sized glenohumeral joint effusion. No acute fracture, Hill-Sachs deformity or osseous Bankart defect. Partial-thickness glenohumeral chondral loss and a few superimposed areas of full-thickness chondral fissuring along the bony glenoid, with subarticular cystic change. LABRUM: Circumferential labral degeneration/nondispla felice tear. ROTATOR CUFF: Mild-moderate supraspinatus and to a lesser extent infraspinatus tendinopathy. No high-grade partial or full-thickness tendon tear. The subscapularis and teres minor tendons are intact/unremarkable. BICEPS TENDON and ROTATOR INTERVAL: Long head biceps tendon: The biceps tendon is not identified, consistent with tear and retraction. MUSCLE BULK: Rotator cuff musculature is normal in bulk and signal without edema or atrophy. ACROMION and ACROMIOCLAVICULAR JOINT: Mild hypertrophic acromioclavicular joint osteoarthritis, with some subarticular bone marrow edema. No subacromial osteophyte. No os acromiale. SUBACROMIAL-SUBDELTOID BURSA: Trace edema in the subacromial-subdeltoid bursa. [facility] Report OTHER: No mass effect in the spinoglenoid notch, suprascapular notch or quadrilateral space. IMPRESSION: 1. Mild-moderate supraspinatus and to a lesser extent infraspinatus tendinopathy. No high-grade partial or full-thickness tendon tear. 2. Partial-thickness glenohumeral chondral loss and a few superimposed areas of full-thickness chondral fissuring along the bony glenoid, with subarticular cystic change. 3. Circumferential labral degeneration/nondispla felice tear. 4. Moderate-sized joint effusion. Report Dictated on Final Dictated: 04/15/2022 3:02 pm Dictating Physician: MD MCMANUS JASON Signed Date and Time: 04/15/2022 3:07 pm Signed by: MD MCMANUS JASON Transcribed Date and Time: 04/15/2022 3:02 [facility] Final Surgical Pathology Rep margaret 05-28-2019 Final Surgical Pathology Report . Pathology Reports Accession: Collected Date/Time: Received Date/Time: Pathologist: [id number] 05/26/2019 09:21 EDT 05/27/2019 08:05 EDT MD MARIO NGUYEN Final Surgical Pathology Report DIAGNOSIS: RECTUM, POLYPECTOMY -- HYPERPLASTIC POLYP. CLINICAL INFORMATION: Procedure: COLONOSCOPY WITH BIOPSY POLYP RECTUM Preoperative diagnosis: SCREENING Postoperative diagnosis: SCREENING SPECIMEN: A POLYP, COLORECT - RECTUM GROSS DESCRIPTION: Received in formalin labeled rectal polyp are 2 pino glistening soft tissues, 0.2 and 0.3 cm. TS -1 Dictated by Elizabeth GOEL ([facility]) MICROSCOPIC DESCRIPTION: Slides reviewed. Electronically Signed by Pathology Report verified by [facility] Electronically signed by MARIO NGUYEN MD Sign out Date: 05/28/2019 17:36 Performing Lab: [facility], [address] [place] [address] ([place]) Comment on above: Performed By: #### S PFR #### [place] [id number] HAND COMP MIN 3 VWS LTon HAND COMP MIN 3 VWS LT HAND COMP MIN 3 V WS LTOrdering Physician: Miah Fernandez MD05/25/2017 12:17 PMTHREE VIEWS OF LEFT HAND (TOTAL SIX IMAGES):Clinical Statement: Evaluate for foreign bodyComparison: NoneFINDINGS: No acute fractures or subluxation/dislocatio n. Bonymineralization is within normal limits. No soft tissue swelling orradiopaque foreign bodies identified.IMPRESSION: No acute findings. ---- Electronic Signature on File ----Signed By: Monica Ugalde [email or web address] ictated: 05/25/2017 2:18 PMSigned: 05/25/2017 2:19 PM Reported By: MONICA UGALDE M.D. Signed By: MONICA UGALDE M.D. [facility] Vital Signs Date Time Vital Sign Value Performing Clinician Rigoberto aranda 05-02-2024 13:41-0400 Body temperature 97 [degF] Kaelyn Praisler-Wood MANAGER [employer] Work Phone: [facility] 05-02-2024 13:41-0400 Body weight 69.85 kg Kaelyn Praisler-Wood MANAGER [employer] Work Phone: [facility] 05-02-2024 13:41-0400 Diastolic blood pressure 81 mm[Hg] Kaelyn Praisler-Wood MANAGER [employer] Work Phone: [facility] 05-02-2024 13:41-0400 Heart rate 54 /min Kaelyn Praisler-Wood MANAGER [employer] Work Phone: [facility] 05-02-2024 13:41-0400 Respiratory rate 18 /min Kaelyn Praisler-Wood MANAGER [employer] Work Phone: [facility] 05-02-2024 13:41-0400 SaO2% (BldA) [Mass fraction] 97 % Kaelyn Praisler-Wood MANAGER [employer] Work Phone: [facility] 05-02-2024 13:41-0400 Systolic blood pressure 132 mm[Hg] Kaelyn Praisler-Wood MANAGER [employer] Work Phone: [facility] 04-24-2024 18:53-0400 Body temperature 98.1 [degF] Castro Plasencia MD Work Phone: [facility] 04-24-2024 18:53-0400 Body weight 70 kg Castro Plasencia MD Work Phone: [facility] 04-24-2024 18:53-0400 Diastolic blood pressure 60 mm[Hg] Castro Plasencia MD Work Phone: [facility] 04-24-2024 18:53-0400 Heart rate 62 /min Castro Plasencia MD Work Phone: [facility] 04-24-2024 18:53-0400 Respiratory rate 16 /min Castro Plasencia MD Work Phone: [facility] 04-24-2024 18:53-0400 SaO2% (BldA) [Mass fraction] 98 % Castro Plasencia MD Work Phone: [facility] 04-24-2024 18:53-0400 Systolic blood pressure 124 mm[Hg] Castro Plasencia MD Work Phone: [facility] 06-27-2023 11:26-0400 Body height 170.[address] Jose Christianson Work Phone: [facility] 06-27-2023 11:22-0400 Body mass index (BMI) [Ratio] 23.3 kg/m2 Dr. Jose Christianson Work Phone: [facility] 06-27-2023 11:22-0400 Body weight 67.[address] Jose Christianson Work Phone: [facility] 06-27-2023 11:22-0400 Diastolic blood pressure 79 mm[Hg] Dr. Jose Christianson Work Phone: [facility] 06-27-2023 11:22-0400 Heart rate 63 /min Dr. Jose Christianson Work Phone: [facility] 06-27-2023 11:22-0400 Respiratory rate 18 /min Dr. Jose Christianson Work Phone: [facility] 06-27-2023 11:22-0400 SaO2% (BldA) [Mass fraction] 100 % Dr. Jose Christianson Work Phone: [facility] 06-27-2023 11:22-0400 Systolic blood pressure 128 mm[Hg] Dr. Jose Christianson Work Phone: [facility] 09-28-2022 16:22-0500 Body height 170.[address] Jose Christianson Work Phone: [facility] Work Phone: 09-28-2022 16:22-0500 Body mass index (BMI) [Ratio] 24.3 kg/m2 Dr. Jose Christianson Work Phone: [facility] Work Phone: 09-28-2022 16:22-0500 Body weight 70.[address] Jose Christianson Work Phone: [facility] Work Phone: 09-28-2022 16:22-0500 Diastolic blood pressure 70 mm[Hg] Dr. Jose Christianson Work Phone: [facility] Work Phone: 09-28-2022 16:22-0500 Heart rate 64 /min Dr. Jose Christianson Work Phone: [facility] Work Phone: 09-28-2022 16:22-0500 Respiratory rate 16 /min Dr. Jose Christianson Work Phone: [facility] Work Phone: 09-28-2022 16:22-0500 Systolic blood pressure 180 mm[Hg] Dr. Jose Christianson Work Phone: [facility] Work Phone: Encounters Encounter Date Encounter Type Care Provider Facility Start: 07-24-2025 ambulatory Danni GOEL Facility:[facility] Start: 02-27-2025 End: 02-27-2025 ambulatory [facility] Start: 10-30-2024 End: 10-30-2024 ambulatory [facility] Facility:[facility] Start: 10-23-2024 End: 10-23-2024 ambulatory [facility] Facility:[facility] Start: 05-02-2024 End: 05-02-2024 ambulatory Facility:[facility] Start: 05-02-2024 End: 05-02-2024 Patient encounter procedure Kaelyn Ryan APRN.CNP Work Phone: [facility] Comment on above: Visit for suture rem oval (Primary Dx) Start: 04-24-2024 End: 04-24-2024 ambulatory Facility:[facility] Start: 04-24-2024 End: 04-24-2024 Office outpatient new 20 minutes Castro Plasencia MD Work Phone: [facility] Comment on above: Laceration of left m iddle finger without foreign body without damage to nail, initial encounter (Primary Dx) Start: 07-06-2023 End: 07-06-[address] Jose Christianson Work Phone: [facility] Work Phone: Start: 07-06-2023 End: 07-06-[address] Jose Christianson Work Phone: [facility]-P[facility] Services/Neurology Work Phone: Start: 06-27-2023 End: 06-27-[address] Jose Christianson Work Phone: [facility] Work Phone: Start: 06-27-2023 End: 06-27-[address] Jose Christianson Work Phone: [facility] Work Phone: Start: 10-13-2022 Non-patient / Non-visit Dr. Ahsan Christianson Work Phone: [facility] Start: 10-13-2022 End: 10-13-[address] Jose Christianson Work Phone: [facility] Work Phone: Start: 10-13-2022 End: 10-13-[address] Jose Christianson Work Phone: [facility]-Cardiovascular Services Start: 09-28-2022 End: 09-28-[address] Jose Christianson Work Phone: [facility] Start: 06-29-2022 End: 06-29-2022 [facility] [facility] Work Phone: Start: 06-29-2022 End: 06-29-2022 Patient encounter procedure [facility] Start: 04-15-2022 End: 04-15-2022 Subsequent hospital visit by physician Kemal Jiang MD Work Phone: [facility] Comment on above: Arrived Start: 05-25-2017 Ambulatory Miah Fernandez Facilit y:[facility] Procedures Date Procedure Procedure Detail Performing Clinician Start: 10-13-2022 Radionuclide imaging of perfusion of myocardium under exercise stress Dr. Jose Christianson Work Phone: Start: 04-15-2022 Mri any jt upper ext remity w/o contrast matrl Kemal Jiang MD Work Phone: Plan of Treatment Date Care Activity Detail Author Start: 04-11-2031 DTaP/Tdap/Td vaccine (2 - Td or Tdap) DTaP/Tdap/Td vaccine (2 - Td or Tdap) [facility] Start: 04-11-2031 Urine microalbumin profile DTaP,Tdap,Td Vaccine (2 - Td or Tdap) [facility] Start: 06-29-2024 Influenza vaccination [facility] Start: 12-25-2023 Covid-19 Vaccine ( season) Covid-19 Vaccine ( season) [facility] Start: 10-29-2023 Advance Directive Discussion Advance Directive Discussion [facility] Start: 10-29-2023 Behavioral Health Screening Behavioral Health Screening [facility] Start: 09-16-2021 COVID-19 Vaccine (2 - Pfizer 3-dose series) COVID-19 Vaccine (2 - Pfizer 3-dose series) [facility] Start: 09-03-2021 Screening for malignant neoplasm of colon [facility] Start: 08-13-2019 Pneumococcal 65+ years Vaccine (1 - PCV) Pneumococcal 65+ years Vaccine (1 - PCV) [facility] Start: 2019 Pneumococcal Vaccine: 65+ (1 of 1 - PCV) Pneumococcal Vaccine: 65+ (1 of 1 - PCV) [facility] Start: 2014 RSV Vaccine (1 - 1-dose 60+ series) RSV Vaccine (1 - 1-dose 60+ series) [facility] Start: 2004 Shingles vaccine (1 of 2) Shingles vaccine (1 of 2) [facility] Start: 2004 Shingrix Vaccine (1 of 2) Shingrix Vaccine (1 of 2) [facility] Start: 1999 Diabetes Screening Diabetes Screening [facility] Start: 1999 Screening for malignant neoplasm of colon [facility] Start: 1994 Lipid panel Lipids [facility] Start: 1994 Prostate specific antigen measurement Prostate Specific Antigen (PSA) Screening or Monitoring [facility] Start: 1989 Lipid panel Lipid Screening [facility] Start: 1972 Hepatitis C screening [facility] Start: 1966 Depression Screen Depression Screen [facility] 24 Hour ECG [facility] Immunizations Immunization Date Immunization Notes Care Provider Fa cility 08-24-2023 influenza virus vacc ine, unspecified formulation Kaelyn Ryan APRN.[employer] Work Phone: [facility] Payers Date Payer Category Payer Self-pay [id number] 2021 Unknown MMO MMO MEDICARE SUPPLEMENT [id number] 2021-Present [phone] [address] [place] [address] Indemnity [id number] 2021 Unknown [id number] 2019 Medicare MEDICARE MEDICAR E A AND B [id number] 2019-Present [phone] [address] [address] [place] [address] Medicare [id number] 2019 Medicare [id number] 2016 Unknown [id number] Unknown [id number] Unknown [id number] Unknown [id number] Unknown [id number] Social History Date Type Detail Facility Start: 10-18-2021 End: 06-27-2023 Tobacco smoking status NCIS Tobacco smoking consumption unknown [facility] Start: 1955 Sex Assigned At Not on file [employer] Work Phone: Start: 1955 Sex Assigned At Male [facility] Start: 04-24-2024 Tobacco smoking status NCIS Never smoked tobacco [facility] Start: 04-24-2024 Tobacco use and exposure Smokeless tobacco non-user [facility] Start: 04-24-2024 End: 05-02-2024 Alcohol intake Not Asked [facility] Start: 10-05-2020 End: 04-24-2024 History of Social function [facility] Start: 10-05-2020 End: 04-24-2024 Tobacco use panel [facility] National Score (1-100), lower number is lower risk Not on file [facility] Progress note 05-02-2024 Note Date & Type Note Facility 05-02-2024 Note HNO ID: [id number] Author: KAELYN RYAN APRN.[employer] Service: ? Author Type: Nurse Practitioner Type: Progress Notes Filed: 05/02/2024 13:53 Note Text: Subjective Suture Removal Estephania Hernandez is a 68 year old male who presents for suture removal. He has 2 sutures in his left middle finger that were placed here on 04/24. He denies any pain or concerns. Review of Systems Constitutional: Negative for chills and fever. Musculoskeletal: Negative for joint pain and myalgias. Skin: Negative for itching and rash. BP 132/81 Pulse (!) 54 Temp 36.1 ?C (97 ?F) Resp 18 Wt 69.9 kg (154 lb) SpO2 97% No past medical history on file. No past surgical history on file. ALLERGIES Seasonal Allergies MEDICATIONS allopurinol (ZYLOPRIM) 100 mg tablet Take 1 tablet by mouth every afternoon. amLODIPine (NORVASC) 5 mg tablet No family history on file. Social History Tobacco Use Smoking status: Never Smokeless tobacco: Never Objective Physical Exam Vitals and nursing note reviewed. Constitutional: Appearance: Normal appearance. Musculoskeletal: General: No swelling or tenderness. Hands: Skin: General: Skin is warm and dry. Findings: No erythema or rash. Neurological: Mental Status: He is alert. ASSESSMENT/PLAN: 1. Visit for suture removal - ICD9: V58.32, ICD10: Z48.02 - 2 sutures removed per protocol; patient tolerated procedure well. - Follow-up with your PCP in 3-5 days if symptoms have not improved or sooner if symptoms worsen - Discussed red flags and need for immediate medical evaluation if any occur. - Discussed supportive care treatment with fluids, rest and analgesia. - Discussed expected course of illness Kaelyn Ryan APRN.[facility] History of Present illness Narrative 05-02-2024 Kaelyn Ryan APRN.[employer] - 05/02/2024 1:50 PM EDT Note Date & Type Note Facility 05-02-2024 History of Presen t illness Narrative Images from the original note were not included. Subjective Suture Removal Estephania Hernandez is a 68 year old male who presents for suture removal. He has 2 sutures in his left middle finger that were placed here on 04/24. He denies any pain or concerns. Review of Systems Constitutional: Negative for chills and fever. Musculoskeletal: Negative for joint pain and myalgias. Skin: Negative for itching and rash. BP 132/81 Pulse (!) 54 Temp 36.1 C (97 F) Resp 18 Wt 69.9 kg (154 lb) SpO2 97% No past medical history on file. No past surgical history on file. ALLERGIES Seasonal Allergies MEDICATIONS allopurinol (ZYLOPRIM) 100 mg tablet Take 1 tablet by mouth every afternoon. amLODIPine (NORVASC) 5 mg tablet No family history on file. Social History Tobacco Use Smoking status: Never Smokeless tobacco: Never Objective Physical Exam Vitals and nursing note reviewed. Constitutional: Appearance: Normal appearance. Musculoskeletal: General: No swelling or tenderness. Hands: Skin: General: Skin is warm and dry. Findings: No erythema or rash. Neurological: Mental Status: He is alert. ASSESSMENT/PLAN: 1. Visit for suture removal - ICD9: V58.32, ICD10: Z48.02 - 2 sutures removed per protocol; patient tolerated procedure well. - Follow-up with your PCP in 3-5 days if symptoms have not improved or sooner if symptoms worsen - Discussed red flags and need for immediate medical evaluation if any occur. - Discussed supportive care treatment with fluids, rest and analgesia. - Discussed expected course of illness Kaelyn Ryan APRN.CNP documented in this encounter [facility] Instructions 05-02-2024 Patient Instructions Note Date & Type Note Facility 05-02-2024 Instructions Kaelyn Ryan APRN.CNP - 05/02/2024 1:50 PM EDT ASSESSMENT/PLAN: 1. Visit for suture removal - ICD9: V58.32, ICD10: Z48.02 - 2 sutures removed per protocol; patient tolerated procedure well. - Follow-up with your PCP in 3-5 days if symptoms have not improved or sooner if symptoms worsen - Discussed red flags and need for immediate medical evaluation if any occur. - Discussed supportive care treatment with fluids, rest and analgesia. - Discussed expected course of illness Kaelyn Ryan APRN.[employer] documented in this encounter [facility] Progress note 04-24-2024 Note Date & Type Note Facility 04-24-2024 Note HNO ID: [id number] Author: CASTRO PLASENCIA MD Service: ? Author Type: Physician Type: Progress Notes Filed: 04/24/2024 19:32 Note Text: Patient presents with: Laceration: Middle finger Left hand with butter knife HPI: Stabbed his left middle with a butter knife while frozen hamburger patties this evening. He has bleeding from the cut. He washed the wound and used peroxide. Had tetanus booster in 2020. MEDICATIONS: allopurinol (ZYLOPRIM) 100 mg tablet Take 1 tablet by mouth every afternoon. amLODIPine (NORVASC) 5 mg tablet ALLERGIES: ALLERGIES Allergen Reactions Seasonal Allergies Other: See Comments Sneezing, eyes VITALS: BP 124/60 Pulse 62 Temp 36.7 ?C (98.1 ?F) Resp 16 Wt 70 kg (154 lb 5.2 oz) SpO2 98% PE: Pleasant, in no acute distress. Right hand dominant. Finger: left middle. 1.5cm laceration on the lateral aspect and pad of the distal phalange. Procedure: Anesthesia: deferred. Site cleansed with hibiclens on gauze and irrigation under tap water. 2 simple interrupted sutures with 5-0 Surgipro II monofilament. Hemostasis achieved with wound closure. Wound dressed with bacitracin on an adhesive bandage. ASSESSMENT/PLAN: 1. Laceration of left middle finger without foreign body without damage to nail, initial encounter - ICD9: 883.0, ICD10: S61.213A Keep sutures covered and dry for 48 hours. The dressing may be changed as needed. After 48 hours, sutures may be exposed to limited water but not submerged. Apply continuous pressure for 10 minutes if bleeding occurs. Seek re-evaluation for sign of infection such as spreading redness, warmth, pus-like discharge, increasing pain, or fever. Return for suture removal in 7 days. Castro Plasencia MD [facility] History of Present illness Narrative 04-24-2024 Castro Plasencia MD - 04/24/2024 7:10 PM EDT Note Date & Type Note Facility 04-24-2024 History of Presen t illness Narrative Patient presents with: Laceration: Middle finger Left hand with butter knife HPI: Stabbed his left middle with a butter knife while frozen hamburger patties this evening. He has bleeding from the cut. He washed the wound and used peroxide. Had tetanus booster in 2020. MEDICATIONS: allopurinol (ZYLOPRIM) 100 mg tablet Take 1 tablet by mouth every afternoon. amLODIPine (NORVASC) 5 mg tablet ALLERGIES: ALLERGIES Allergen Reactions Seasonal Allergies Other: See Comments Sneezing, eyes VITALS: BP 124/60 Pulse 62 Temp 36.7 C (98.1 F) Resp 16 Wt 70 kg (154 lb 5.2 oz) SpO2 98% PE: Pleasant, in no acute distress. Right hand dominant. Finger: left middle. 1.5cm laceration on the lateral aspect and pad of the distal phalange. Procedure: Anesthesia: deferred. Site cleansed with hibiclens on gauze and irrigation under tap water. 2 simple interrupted sutures with 5-0 Surgipro II monofilament. Hemostasis achieved with wound closure. Wound dressed with bacitracin on an adhesive bandage. ASSESSMENT/PLAN: 1. Laceration of left middle finger without foreign body without damage to nail, initial encounter - ICD9: 883.0, ICD10: S61.213A Keep sutures covered and dry for 48 hours. The dressing may be changed as needed. After 48 hours, sutures may be exposed to limited water but not submerged. Apply continuous pressure for 10 minutes if bleeding occurs. Seek re-evaluation for sign of infection such as spreading redness, warmth, pus-like discharge, increasing pain, or fever. Return for suture removal in 7 days. Castro Plasencia MD documented in this encounter [facility] Evaluation note Note Date & Type Note Facility Evaluation note No assessment information availa [facility] Work Phone: Evaluation note Note Date & Type Note Facility Evaluation note Diagnosis Onset Date Chest pain in adult acute Dyspnea acute Essential hypertension acute Irregular heart rate [facility] Work Phone: Evaluation note Note Date & Type Note Facility Evaluation note Diagnosis Onset Date Chest pain in adult acute Essential hypertension acute Palpitations [facility] Work Phone: Evaluation note Note Date & Type Note Facility Evaluation note Diagnosis Laceration of left middle finger without foreign body without damage to nail, initial encounter- Primary documented in this encounter [facility] Evaluation note Note Date & Type Note Facility Evaluation note Diagnosis Visit for suture removal- Primary Encounter for removal of sutures documented in this encounter [facility] Summary Purpose Family History No Family History Records Found Relationship Condition Age at Onset Recorded Date/T luis mother Malignant neoplasm Unknown father Coronary artery disease Unknown History of coronary artery bypass surgery Unknown Hypertension Unknown Malignant neoplasm Unknown Advance Directives No Advanced Directives Records Found Advance Directive Response Recorded Date/ Time Living Will No April 11, 2021 6:32pm Power of Barrel Bander No April 11 6:32pm Advance Directive Response Recorded Date/ Time Living Will No April 11, 2021 5:32pm Power of Barrel Bander No April 11 5:32pm Chief Complaint and Reason for Visit Chief Complaint IRREGULAR HR/SELF RE F. DYSPNEA Reason for Visit Chest pain in adult Dyspnea Essential hypertension Irregular heart rate Chief Complaint 6 M FU E ORDERS Reason for Visit Chest pain in adult Essential hypertension Palpitations Chief Complaint 6 M FU E ORDERS Palpitations Reason for Visit Chest pain in adult Essential hypertension Palpitations Additional Source Comments (unrecognized sect ion and content) No Status Records FoundNo Status Records FoundNo Status Records FoundNo Status Records FoundNo Status Records Found INFORMATION SOURCE (unrecogn ized section and content) DATE CREATED AUTHOR 04/24/2018 [facility] [place] DATE CREATED AUTHOR AUTHOR'S ORGANIZ ATION 06/09/2019 [facility] ([place]) DATE CREATED AUTHOR AUTHOR'S ORGANIZ ATION 04/17/2022 [facility] DATE CREATED AUTHOR AUTHOR'S ORGANIZ ATION 05/03/2024 [facility] DATE CREATED AUTHOR AUTHOR'S ORGANIZ ATION 07/18/2025 [facility] Goals (unrecognized section and content) Goals may be documented in a n alternate sectionGoals may be documented in an alternate sectionGoals may be documented in an alternate sectionGoals may be documented in an alternate section Care Teams (unrecognized sec tion and content) Team Status: Active Member Role Status Dates Dr. Jose Christianson MD Family Provider Active Dr. Jose Christianson MD Primary Care Provider Active Team Status: Inactive Member Role Status Dates Dr. Jose Christianson MD Primary Care Provider, Referring Provider Active Claritza Carl RN [facility], RN [facility] Attending Provider Active Team Status: Inactive Member Role Status Dates Dr. Jose Christianson MD Primary Care Provider Active Claritza aCrl NP, RN [facility] Attending Provider, Referring Conrado luna Active [place] Relationship Specialty Start Date End Date PcpSonya APRN PCP - General 02/07/24 08/28/24 [place] Relationship Specialty Start Date End Date PcpSonya APRN PCP - General 02/07/24 08/28/24 Source Comments (unrecognize d section and content) In the event this informatio n is protected by the Federal Confidentiality of Alcohol and Drug Abuse Patient Records regulations: The Federal rules restrict any use of the information to criminally investigate or prosecute any alcohol or drug abuse patient.[facility] the event this information is protected by the Federal Confidentiality of Alcohol and Drug Abuse Patient Records regulations: The Federal rules restrict any use of the information to criminally investigate or prosecute any alcohol or drug abuse patient.[facility] Reason for Visit (unrecogniz ed section and content) Reason Comments Laceration Middle finger Left h and with butter knife Reason Comments Suture Removal L hand middle finger x 04/24 FOR RECORDS PERTAINING TO PATIENTS WHO ARE OR HAVE BEEN ENROLLED IN A CHEMICAL DEPENDENCY/SUBSTANCEABUSE PROGRAM, SOME INFORMATION MAY BE OMITTED. This clinical summary was aggregated from multiple sources. Caution should be exercised in using it in the provision of clinical care. This summary normalizes information from multiple sources, and as a consequence, information in this document may materially change the coding, format and clinical context of patient data. In addition, data may be omitted in some cases. CLINICAL DECISIONS SHOULD BE BASED ON THE PRIMARY CLINICAL RECORDS. [employer] [facility]. provides no warranty or guarantee of the accuracy or completeness of information in this document.
== END | disposition home or self-care (01) ==
LOC: CVS 13:47
PROVIDERS: PCP Family Medicine; Referring Provider Physician Assistant Medical; Visit Provider Physician Assistant Medical
DX: R00.2 Palpitations (principal)
CPT/HCPCS: 93306

== ENCOUNTER → 2025-08-27 | Outpatient (CLI) | payer MEDICARE, OTHER, SELFPAY ==
[2025-08-27 15:32] LABS: Anion Gap 11 (5-15); BUN 14 mg/dL (4-19); BUN/Creat Ratio 12.3 RATIO (10-20); Calcium,Total 9.9 mg/dL (7.6-11.0); Carbon Dioxide 26.5 mmol/L (21.0-32.0); Chloride 104 mmol/L (98-108); Cholesterol 213 mg/dL (<=200); Glucose 88 mg/dL (70-99); Low Density Lipoprotein Calc. 121 mg/dL; Potassium 4.9 mmol/L (3.3-5.1); Triglycerides 96 mg/dL; Very Low Density Lipoprotein 19 mg/dL (5-40); cholesterol:hdl ratio screen 2.82
== END | disposition home or self-care (01) ==
LOC: MTLAB 12:36
PROVIDERS: PCP Family Medicine; Referring Provider Family Medicine; Visit Provider Family Medicine
DX: Z00.00 Encounter for general adult medical examination without abnormal findings (principal); I10 Essential (primary) hypertension
CPT/HCPCS: 36415; 80048; 80061